=== PATIENT | male | born 1955 | race Caucasian/White ===

== ENCOUNTER → 2016-07-17 | Outpatient (REF) | payer OTHER ==
[2016-07-17 16:13] LABS: ALBUMIN 3.5 GM/DL (3.2-5.2); ALBUMIN/GLOBULIN RATIO 1.21 (1.00-1.93); ALKALINE PHOSPHATASE 87 U/L (45-117); ALT/SGPT 31 U/L (12-78); ANION GAP 7 MEQ/L (8-16); AST/SGOT 16 U/L (15-37); BILIRUBIN,TOTAL 0.5 MG/DL (0.2-1.0); BLOOD UREA NITROGEN 19 MG/DL (7-18); CALCIUM LEVEL 8.2 MG/DL (8.8-10.2); CARBON DIOXIDE LEVEL 27 MEQ/L (21-32); CHLORIDE LEVEL 108 MEQ/L (98-107); CHOLESTEROL LEVEL 116 MG/DL (<200); CREATININE FOR GFR 0.68 MG/DL (0.70-1.30); GLOMERULAR FILTRATION RATE > 60.0 (>49); GLUCOSE, FASTING 124 MG/DL (80-110); SODIUM LEVEL 142 MEQ/L (136-145); TOTAL PROTEIN 6.4 GM/DL (6.4-8.2); TRIGLYCERIDES LEVEL 58 MG/DL (<150)
== END ==
LOC: M LABDRAW1 15:38
PROVIDERS: ATTEND Emergency Medicine
DX: E78.2 Mixed hyperlipidemia (principal); R73.01 Impaired fasting glucose

== ENCOUNTER → 2017-09-10 | Outpatient (REF) | payer OTHER ==
[2017-09-10 20:02] LABS: ALBUMIN 3.6 GM/DL (3.2-5.2); ALBUMIN/GLOBULIN RATIO 1.16 (1.00-1.93); ALKALINE PHOSPHATASE 99 U/L (45-117); ALT/SGPT 37 U/L (12-78); ANION GAP 6 MEQ/L (8-16); AST/SGOT 20 U/L (7-37); BILIRUBIN,TOTAL 0.5 MG/DL (0.2-1.0); BLOOD UREA NITROGEN 13 MG/DL (7-18); CALCIUM LEVEL 8.7 MG/DL (8.8-10.2); CARBON DIOXIDE LEVEL 30 MEQ/L (21-32); CHLORIDE LEVEL 105 MEQ/L (98-107); CHOLESTEROL LEVEL 120 MG/DL (<200); CHOLESTEROL RISK RATIO 2.666 (<5); CREATININE FOR GFR 0.76 MG/DL (0.70-1.30); GLOMERULAR FILTRATION RATE > 60.0 (>49); GLUCOSE, FASTING 108 MG/DL (70-100); HDL CHOLESTEROL 45 MG/DL (>40); NON-HDL-C 75 MG/DL; POTASSIUM SERUM 3.7 MEQ/L (3.5-5.1); SODIUM LEVEL 141 MEQ/L (136-145); TOTAL PROTEIN 6.7 GM/DL (6.4-8.2); TRIGLYCERIDES LEVEL 90 MG/DL (<150)
[2017-09-10 20:09] LABS: ESTIMATED AVERAGE GLUCOSE 171 MG/DL (60-110); HEMOGLOBIN A1c 7.6 %
== END ==
LOC: M LAB REF 18:48
DX: R73.01 Impaired fasting glucose (principal); E78.5 Hyperlipidemia, unspecified; E78.2 Mixed hyperlipidemia; E11.9 Type 2 diabetes mellitus without complications

== ENCOUNTER → 2018-01-11 | Outpatient (REF) | payer OTHER ==
[2018-01-11 16:41] LABS: ALBUMIN 3.7 GM/DL (3.2-5.2); ALBUMIN/GLOBULIN RATIO 1.19 (1.00-1.93); ALKALINE PHOSPHATASE 87 U/L (45-117); ALT/SGPT 31 U/L (12-78); ANION GAP 8 MEQ/L (8-16); AST/SGOT 17 U/L (7-37); BILIRUBIN,TOTAL 0.5 MG/DL (0.2-1.0); BLOOD UREA NITROGEN 16 MG/DL (7-18); CARBON DIOXIDE LEVEL 27 MEQ/L (21-32); CHLORIDE LEVEL 105 MEQ/L (98-107); GLOMERULAR FILTRATION RATE > 60.0 (>49); GLUCOSE, FASTING 121 MG/DL (70-100); POTASSIUM SERUM 4.2 MEQ/L (3.5-5.1); SODIUM LEVEL 140 MEQ/L (136-145); TOTAL PROTEIN 6.8 GM/DL (6.4-8.2)
[2018-01-11 16:43] LABS: ESTIMATED AVERAGE GLUCOSE 131 MG/DL (60-110); HEMOGLOBIN A1c 6.2 %
== END ==
LOC: M LABDRAW1 15:58
DX: E11.9 Type 2 diabetes mellitus without complications (principal)

== ENCOUNTER → 2018-01-21 | Outpatient (REF) | payer OTHER | LOC: M LAB REF 17:12 | DX: E11.9 Type 2 diabetes mellitus without complications (principal) ==

== ENCOUNTER 2018-03-29 13:19 | Emergency (ER) | payer OTHER ==
[~2018-03-29] VITALS: Ht 175.3 cm; Wt 88.6 kg
[~2018-03-29 13:19] MED LIST: ASPI1TAB PO; ATOR1TAB21 PO; METF-839 PO; MULT1TAB10 PO
[2018-03-29] MEDS ORDERED: NORCO, ANEXSIA 5/325MG TABLET (HYDROcodone/ACETAMINOPHEN) PO ONE (14:30)
[2018-03-29] MEDS ORDERED: ADACEL/BOOSTRIX VACCINE (DIPHTH/PERTUSS/ACELL/TETANUS)0.5ML SYR (90715) IM ONE (14:30)
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
[2018-03-29] MEDS ORDERED: NORCOTAB PO (15:04)
[2018-03-29 15:15] VITALS: BP 168/93
== END 2018-03-29 15:17 | disposition home or self-care (01) ==
LOC: M ED 13:19
DX: Z04.1 Encounter for examination and observation following transport accident (principal); S62.317A Displaced fracture of base of fifth metacarpal bone, left hand, initial encounter for closed fracture; X58.XXXA Exposure to other specified factors, initial encounter; Y92.410 Unspecified street and highway as the place of occurrence of the external cause; Z79.84 Long term (current) use of oral hypoglycemic drugs; Z79.82 Long term (current) use of aspirin; Z79.899 Other long term (current) drug therapy

== ENCOUNTER → 2018-05-06 | Outpatient (REF) | payer OTHER ==
[~2018-05-06] MED LIST changes: +NORCOTAB PO
[2018-05-06 16:18] LABS: BLOOD UREA NITROGEN 24 MG/DL (7-18); CALCIUM LEVEL 8.6 MG/DL (8.8-10.2); CARBON DIOXIDE LEVEL 26 MEQ/L (21-32); CHLORIDE LEVEL 106 MEQ/L (98-107); CREATININE FOR GFR 0.64 MG/DL (0.70-1.30); GLOMERULAR FILTRATION RATE > 60.0 (>49); GLUCOSE, FASTING 133 MG/DL (70-100); POTASSIUM SERUM 3.9 MEQ/L (3.5-5.1); SODIUM LEVEL 143 MEQ/L (136-145)
[2018-05-06 16:31] LABS: HEMOGLOBIN A1c 6.7 %
== END ==
LOC: M LAB REF 15:19
PROVIDERS: ATTEND Physician Assistant
DX: E11.9 Type 2 diabetes mellitus without complications (principal)

== ENCOUNTER → 2018-05-08 | Outpatient (REF) | payer OTHER ==
[2018-05-08 19:16] LABS: CREATININE, URINE 20.1 MG/DL; MALB URINE SIEMENS 11.3 MG/L; MAU/CREAT RATIO 56.2 MCG/MG (0.0-30.0)
== END ==
LOC: M LAB REF 17:14
PROVIDERS: ATTEND Physician Assistant
DX: E11.69 Type 2 diabetes mellitus with other specified complication (principal)

== ENCOUNTER → 2018-09-12 | Outpatient (REF) | payer OTHER ==
[~2018-09-12] MED LIST changes: -ASPI1TAB PO; +ASPI81TA26 PO; +HYDR-3715 PO; -NORCOTAB PO
[2018-09-12 18:56] LABS: ALBUMIN 3.8 GM/DL (3.2-5.2); ALT/SGPT 26 U/L (12-78); BILIRUBIN,TOTAL 0.6 MG/DL (0.2-1.0); BLOOD UREA NITROGEN 14 MG/DL (7-18); CALCIUM LEVEL 8.6 MG/DL (8.8-10.2); CARBON DIOXIDE LEVEL 26 MEQ/L (21-32); CHLORIDE LEVEL 106 MEQ/L (98-107); CHOLESTEROL LEVEL 112 MG/DL (<200); CHOLESTEROL RISK RATIO 2.333 (<5); CREATININE FOR GFR 0.79 MG/DL (0.70-1.30); GLOMERULAR FILTRATION RATE > 60.0 (>49); GLUCOSE, FASTING 115 MG/DL (70-100); HDL CHOLESTEROL 48 MG/DL (>40); LDL CHOLESTEROL 46 MG/DL (<100); NON-HDL-C 64 MG/DL; SODIUM LEVEL 141 MEQ/L (136-145); TOTAL PROTEIN 6.9 GM/DL (6.4-8.2); TRIGLYCERIDES LEVEL 88 MG/DL (<150)
[2018-09-12 19:07] LABS: HEMOGLOBIN A1c 6.8 %
== END ==
LOC: M LABDRAW1 14:14
PROVIDERS: ATTEND Physician Assistant
DX: E78.2 Mixed hyperlipidemia (principal)

== ENCOUNTER 2018-10-30 08:26 | Day surgery (SDC) | payer MEDICAID, SELFPAY ==
[~2018-10-30] VITALS: Ht 177.8 cm; Wt 83.1 kg
[~2018-10-30 08:26] MED LIST changes: +MULTCAP PO; +NS 1,000 ML IV ONE
[2018-10-30] MEDS ORDERED: fentaNYL 100 MCG/2 ML INJECTION (J3010) As Ordered ONE (09:50)
[2018-10-30] MEDS ORDERED: PROPOFOL 500 MG/50 ML VIAL As Ordered ONE (09:50)
[2018-10-30] MEDS ORDERED: LIDOCAINE 2% INJ 100 MG/5 ML SDV (FOR ANES.) As Ordered ONE (09:50)
--- NOTE | 2018-10-30 10:29 | ROOR ---
Patient Name: Bjorn Persaud Procedure Date: 10/30/2018 9:45 AM Date of : 1955 Age: 62 Room: [facility] Gender: Male Note Status: Finalized Procedure: Upper GI endoscopy Indications: Dysphagia Providers: Rebel Ortega MD Referring MD: KAMILAH Edwards Requesting Provider: Medicines: Monitored Anesthesia Care Complications: No immediate complications. Procedure: Pre-Anesthesia Assessment: - Prior to the procedure, a History and Physical was performed, and patient medications and allergies were reviewed. The patient is competent. The risks and benefits of the procedure and the sedation options and risks were discussed with the patient. All questions were answered and informed consent was obtained. Patient identification and proposed procedure were verified by the physician, the nurse and the anesthesiologist in the endoscopy suite. Mental Status Examination: alert and oriented. Airway Examination: normal oropharyngeal airway and neck mobility. Respiratory Examination: clear to auscultation. CV Examination: normal. Prophylactic Antibiotics: The patient does not require prophylactic antibiotics. Prior Anticoagulants: The patient has taken aspirin, last dose was 1 day prior to procedure. ASA Grade Assessment: II - A patient with mild systemic disease. After reviewing the risks and benefits, the patient was deemed in satisfactory condition to undergo the procedure. The anesthesia plan was to use monitored anesthesia care (MAC). Immediately prior to administration of medications, the patient was re-assessed for adequacy to receive sedatives. The heart rate, respiratory rate, oxygen saturations, blood pressure, adequacy of pulmonary ventilation, and response to care were monitored throughout the procedure. The physical status of the patient was re-assessed after the procedure. The Endoscope was introduced through the mouth, and advanced to the second part of duodenum. The upper GI endoscopy was accomplished without difficulty. The patient tolerated the procedure well. Findings: There is no endoscopic evidence of bleeding, areas of erosion, esophagitis, inflammation, mucosal abnormalities, stenosis or stricture in the upper third of the esophagus and in the middle third of the esophagus. A small, fungating mass with no bleeding and no stigmata of recent bleeding was found in the lower third of the esophagus, 38 cm from the incisors. The mass was non-obstructing and not circumferential. This was biopsied with a cold forceps for histology. Estimated blood loss was minimal. Patchy mildly congested mucosa was found at the pylorus. This was biopsied with a cold forceps for histology. Estimated blood loss was minimal. Patchy mildly congested mucosa without active bleeding and with no stigmata of bleeding was found in the duodenal bulb. This was biopsied with a cold forceps for histology. Impression: - Likely malignant esophageal tumor was found in the lower third of the esophagus. Biopsied. - Congestive gastropathy. Biopsied. - Congested duodenal mucosa. Biopsied. - abnormal appearing mass located at a single area of the esophagus just above the ge junctiion. Not visible with retroflexion at the stomach. Recommendation: - Return to my office in 1 week. Rebel Ortega MD Rebel Ortega MD 10/30/2018 10:28:55 AM Electronically signed by Rebel Ortega MD Number of Addenda: 0 Note Initiated On: 10/30/2018 9:45 AM Estimated Blood Loss: Estimated blood loss was minimal.
--- NOTE | 2018-10-30 10:32 | ROOR ---
Patient Name: Bjorn Persaud Procedure Date: 10/30/2018 9:45 AM Date of : 1955 Age: 62 Room: [facility] Gender: Male Note Status: Finalized Procedure: Colonoscopy Indications: Screening for colorectal malignant neoplasm Providers: Rebel Ortega MD Referring MD: KAMILAH Edwards Requesting Provider: Medicines: Monitored Anesthesia Care Complications: No immediate complications. Procedure: Pre-Anesthesia Assessment: - Prior to the procedure, a History and Physical was performed, and patient medications and allergies were reviewed. The patient is competent. The risks and benefits of the procedure and the sedation options and risks were discussed with the patient. All questions were answered and informed consent was obtained. Patient identification and proposed procedure were verified by the physician, the nurse and the anesthesiologist in the endoscopy suite. Mental Status Examination: alert and oriented. Airway Examination: normal oropharyngeal airway and neck mobility. Respiratory Examination: clear to auscultation. CV Examination: normal. Prophylactic Antibiotics: The patient does not require prophylactic antibiotics. Prior Anticoagulants: The patient has taken aspirin, last dose was 1 day prior to procedure. ASA Grade Assessment: II - A patient with mild systemic disease. After reviewing the risks and benefits, the patient was deemed in satisfactory condition to undergo the procedure. The anesthesia plan was to use monitored anesthesia care (MAC). Immediately prior to administration of medications, the patient was re-assessed for adequacy to receive sedatives. The heart rate, respiratory rate, oxygen saturations, blood pressure, adequacy of pulmonary ventilation, and response to care were monitored throughout the procedure. The physical status of the patient was re-assessed after the procedure. The Colonoscope was introduced through the anus and advanced to the cecum, identified by appendiceal orifice and ileocecal valve. The colonoscopy was somewhat difficult due to multiple diverticula in the colon. The patient tolerated the procedure well. The quality of the bowel preparation was good. Findings: Hemorrhoids were found on perianal exam. Multiple medium-mouthed diverticula were found in the sigmoid colon, descending colon and transverse colon. There was evidence of an impacted diverticulum. There was no evidence of diverticular bleeding. A localized area of mildly inflamed mucosa was found in the descending colon. Biopsies were taken with a cold forceps for histology. The retroflexed view of the distal rectum and anal verge was normal and showed no anal or rectal abnormalities. Impression: - Hemorrhoids found on perianal exam. - Moderate diverticulosis in the sigmoid colon, in the descending colon and in the transverse colon. There was evidence of an impacted diverticulum. There was no evidence of diverticular bleeding. - Inflamed mucosa in the descending colon. Biopsied. - The distal rectum and anal verge are normal on retroflexion view. Recommendation: - Discharge patient to home (ambulatory). - Repeat colonoscopy in 10 years for screening purposes. Rebel Ortega MD Rebel Ortega MD 10/30/2018 10:32:23 AM Electronically signed by Rebel Ortega MD Number of Addenda: 0 Note Initiated On: 10/30/2018 9:45 AM Estimated Blood Loss: Estimated blood loss was minimal.
[2018-10-30 10:45] VITALS: BP 140/77
== END 2018-10-30 11:04 | disposition home or self-care (01) ==
LOC: M OPP 08:26
PROVIDERS: ATTEND Surgery
DX: Z12.11 Encounter for screening for malignant neoplasm of colon (principal); K64.9 Unspecified hemorrhoids; K52.9 Noninfective gastroenteritis and colitis, unspecified; K57.30 Diverticulosis of large intestine without perforation or abscess without bleeding; D49.0 Neoplasm of unspecified behavior of digestive system; K31.89 Other diseases of stomach and duodenum; R13.10 Dysphagia, unspecified; J44.9 Chronic obstructive pulmonary disease, unspecified; E11.9 Type 2 diabetes mellitus without complications; Z79.899 Other long term (current) drug therapy; Z79.82 Long term (current) use of aspirin; Z79.84 Long term (current) use of oral hypoglycemic drugs; Z87.891 Personal history of nicotine dependence
CPT/HCPCS: 43239; 45380; 88305; J3010

== ENCOUNTER → 2018-11-06 | Outpatient (CLI) | payer OTHER, MEDICAID ==
[~2018-11-06] MED LIST changes: +ISOVUE-370 76% 100ML VIAL (Q9967) As Ordered ONE; -NS 1,000 ML IV ONE
--- NOTE | 2018-11-06 13:26 | REP ---
Clinical: Malignant neoplasm of the esophagus. Technique: Axial contrast enhanced images from the thoracic inlet to the upper abdomen with coronal and sagittal re-formations using 100 ml Isovue 370 intravenous contrast material. Comparison: 03/20/2011. Findings: There is asymmetric mural thickening of the distal esophagus. Small juana esophageal lymph nodes in the mediastinum measuring up to 5 mm cannot be excluded and are nonspecific. Right hilar lymph nodes are identified measuring up to 13 mm and unchanged compared to 2012. Further evaluation of the mediastinum demonstrates atherosclerotic changes to the thoracic aorta and coronary arteries without aortic aneurysm/dissection or cardiomegaly. No pericardial effusion. Trachea and tracheobronchial tree appear patent and within normal limits. The bilateral lung josue demonstrate moderate COPD/emphysematous changes. No urinary parenchymal consolidation, effusion, obvious significant nodule or mass lesion appreciated. Musculoskeletal structures demonstrate degenerative changes without focal osseous abnormality. Upper abdomen demonstrates normal bilateral adrenal glands. A few lymph nodes in the gastrohepatic ligament measure up to 11 mm and are nonspecific. Impression: 1. Mild asymmetric mural thickening to the distal esophagus. Small paraesophageal lymph nodes up to 5 mm are nonspecific. 2. Mild/early moderate chronic COPD and emphysematous changes to the bilateral lung josue similar to 2012. No evidence for metastatic disease. No consolidation or effusion. Electronically Signed by Ji Rodríguez MD 11/06/2018 01:17 P
== END ==
LOC: M RAD 12:25
PROVIDERS: ATTEND Surgery
DX: C15.9 Malignant neoplasm of esophagus, unspecified (principal)
CPT/HCPCS: 71260; Q9967

== ENCOUNTER 2018-12-18 14:09 | Observation (INO) | payer MEDICAID, OTHER ==
[~2018-12-18] VITALS: Ht 177.8 cm; Wt 83.7 kg
[~2018-12-18 14:09] MED LIST changes: -ISOVUE-370 76% 100ML VIAL (Q9967) As Ordered ONE
[2018-12-18] MEDS ORDERED: NS 1,000 ML IV ONE ×2 (14:30→23:45)
--- NOTE | 2018-12-18 15:00 | REP ---
CT brain: 12/18/2018. Indication: Mental status change. Stroke. Comparison: None. Technique: Unenhanced axial CT images of the brain were obtained from skull base to vertex. Findings: There is no acute intracranial hemorrhage, acute cortical infarction, mass effect or hydrocephalous. Diffuse volume loss is present. There are a few patchy areas of hypoattenuation scattered throughout the white matter most consistent with mild sequelae of chronic microangiopathic ischemic disease. Impression: No acute cardiopulmonary process. Electronically Signed by Nickolas Morley DO 12/18/2018 02:51 P
[2018-12-18 15:08] LABS: BASO % 0.4 % (0.0-1.0); EOS # 0.1 10^3/uL (0.0-0.5); HEMATOCRIT 42.3 % (42.0-52.0); HEMOGLOBIN 14.8 g/dl (13.5-17.5); LYMPH # 1.3 10^3/uL (1.5-5.0); LYMPH % 25.4 % (24.0-44.0); MEAN CORPUSCULAR HEMOGLOBIN 31.7 pg (27.0-33.0); MEAN CORPUSCULAR VOLUME 90.6 fl (80.0-96.0); MONO # 0.4 10^3/uL (0.0-0.8); MONO % 7.7 % (0.0-5.0); NEUTROPHILS # 3.3 10^3/uL (1.5-8.5); NEUTROPHILS % 65.3 % (36.0-66.0); PLATELET COUNT, AUTOMATED 202 10^3/uL (150-450); RED BLOOD COUNT 4.67 10^6/uL (4.30-6.10)
--- NOTE | 2018-12-18 15:20 | ECGEPIP ---
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
--- NOTE | 2018-12-18 15:21 | REP ---
Single view chest: 12/18/2018. Indication: Altered mental status. Comparison: CT chest from last month. Findings: The lungs are clear. There is no pleural effusion or pneumothorax. Cardiac silhouette is within normal limits. Impression: No acute cardiopulmonary process. Electronically Signed by Nickolas Morley DO 12/18/2018 03:12 P
[2018-12-18 15:48] LABS: ALBUMIN 3.6 GM/DL (3.2-5.2); ALT/SGPT 25 U/L (12-78); BILIRUBIN,DIRECT 0.2 MG/DL (0.0-0.2); BILIRUBIN,TOTAL 0.6 MG/DL (0.2-1.0); BLOOD UREA NITROGEN 12 MG/DL (7-18); CALCIUM LEVEL 8.6 MG/DL (8.8-10.2); CARBON DIOXIDE LEVEL 27 MEQ/L (21-32); CHLORIDE LEVEL 105 MEQ/L (98-107); CK-MB VALUE MASS 1.1 NG/ML (<3.6); CPK CREATINE PHOSPHOKINASE 65 U/L (39-308); CREATININE FOR GFR 0.81 MG/DL (0.70-1.30); GLOMERULAR FILTRATION RATE > 60.0 (>49); GLUCOSE, FASTING 126 MG/DL (70-100); MB/CK RELATIVE INDEX 1.69 (< OR =4); POTASSIUM SERUM 3.7 MEQ/L (3.5-5.1); SODIUM LEVEL 140 MEQ/L (136-145); TOTAL PROTEIN 6.7 GM/DL (6.4-8.2); TROPONIN I < 0.02 NG/ML (< 0.10)
[2018-12-18 16:41] LABS: ABG BASE EXCESS -0.3 (-2.0-2.0); ABG HCO3 24.5 MEQ/L (22.0-26.0); ABG O2 SATURATION 95.3 % (95.0-99.0); ABG PARTIAL PRESSURE CO2 40.7 mmHg (35.0-45.0); ABG PARTIAL PRESSURE O2 78.5 mmHg (75.0-100.0); ABG STANDARD HCO3 24.2 MEQ/L (22.0-26.0); ABG TOTAL CO2 25.7 MEQ/L (23.0-31.0); ABG pH (ARTERIAL) 7.397 UNITS (7.350-7.450)
[2018-12-18 17:10] LABS: ETHYL ALCOHOL (ETHANOL) < 0.003 % (0.000-0.010)
[2018-12-18 17:31] LABS: AMPHETAMINES LEVEL URINE NEGATIVE (NEGATIVE); BARBITURATES URINE NEGATIVE (NEGATIVE); BENZODIAZEPINES URINE NEGATIVE (NEGATIVE); CANNABINOIDS URINE NEGATIVE (NEGATIVE); COCAINE METABOLITE URINE NEGATIVE (NEGATIVE); METHADONE URINE NEGATIVE (NEGATIVE); OPIATES URINE NEGATIVE (NEGATIVE); PHENCYCLIDINE URINE NEGATIVE (NEGATIVE)
[2018-12-18 18:24] LABS: ACETAMINOPHEN LEVEL < 2.0 UG/ML (10.0-30.0); SALICYLATE LEVEL < 1.7 MG/DL (5.0-30.0)
[2018-12-18] MEDS ORDERED: GLUCAGON FOR INJ 1 MG VIAL (J1610) SC PRN (18:30)
[2018-12-18] MEDS ORDERED: GLUCOSE 4 GM CHEW TABLET PO PRN (18:30)
[2018-12-18] MEDS ORDERED: DEXTROSE 50% 50 ML SYRINGE IV PRN (18:30)
[2018-12-18] MEDS ORDERED: ISOVUE-370 76% 100ML VIAL (Q9967) As Ordered ONE (18:39)
--- NOTE | 2018-12-18 18:46 | HPEPDOC ---
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 Since that time he has been undergoing evaluation at [facility] in [place]. He was supposed to have a PET scan this Sunday he has been seen by thoracic surgeon Dr. Thomas and based on the results of the PET scan there is a plan for possible surgery in the near future. The patient was also told he would likely need to see an oncologist undergo chemotherapy as well. As per the patient's has been very depressed regarding this new development and likely need for chemotherapy and is cancer she expressed some concern that he may have taken some of her medication although the patient denies this. The patient reportedly was more tired yesterday evening it was difficult to wake today sleeping and much later than usual and that when he did awake the patient reported his he did not think she would be capable of walking that he will stumble and fall prompting her to call 911. Since then the patient's been difficult to awaken but oriented to walk and and also speaking with more slurred speech than usual and more combative that he was the day before as per the .. Otherwise patient denies hair loss, headache, visual changes, chest pain, shortness of breath, cough, nausea, vomiting, diarrhea, abdominal pain, muscle aches, worsening arthritis tremendous today he does express to me that he has felt down and depressed and has thought of hurting himself and take his own life in recent days but denies having taken anything or made any attempt. PAST MEDICAL HISTORY: 1. Esophageal cancer diagnosed in October of this year. 2. COPD. 3. Diabetes mellitus 4. Diverticulosis. HOME MEDICATIONS: Please see below. ALLERGIES: Please see below PAST SURGICAL HISTORY: 1. Cervical fusion. 2. Bilateral foot surgeries. SOCIAL HISTORY: Lives with: , Employment: Unable to work since diagnosis of cancer. 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 ETOH: Denies, Illicit drug use: Denies, CODE STATUS: Focal FAMILY HISTORY:Reviewed and noncontributory REVIEW OF SYSTEMS: 10 systems reviewed and negative other than HPI PHYSICAL EXAMINATION: VITAL SIGNS: Temperature 96.8, pulse 80 respiratory rate 16, blood pressure 120/78, pulse oximetry 92% on room air. GENERAL: Competitive elderly man sleeping with O sign but arousable to verbal stimuli and oriented times she speaks with very slurred speech and at other times when anchored speaks very clearly. Does not appear to be in any acute distress HEENT: Moist mucous membranes no elevation in CVP CARDIOVASCULAR: S1 S2 regular no additional heart sounds appreciated. RESPIRATORY: Clear to auscultation bilaterally. ABDOMINAL: Bowel sounds present abdomen soft and nontender EXTREMITIES: No clubbing cyanosis or edema NEUROLOGICAL: Spontaneously moves all 4 extremities cranial 2 through 12 grossly intact no gross focal deficits appreciated no focal deficits other than intermittent slurred speech which is not consistent PSYCHOLOGICAL: Volatile angry depressed combative at times LABORATORY DATA: See below. MICROBIOLOGY: Please see below. IMAGING: Head CT:There is no acute intracranial hemorrhage, acute cortical infarction, mass effect or hydrocephalous. Diffuse volume loss is present. There are a few patchy areas of hypoattenuation scattered throughout the white matter most consistent with mild sequelae of chronic microangiopathic ischemic disease. Chest x-ray: No acute cardiopulmonary process. ASSESSMENT & PLAN: This is a 63-year-old man presenting with weakness confusion changes in mentation. PROBLEMS: 1. Weakness confusion changes in mentation: Etiology is not immediately clear patient did express some suicidal ideation to me during this visit and as such I'll place him on a one-to-one sitter and he'll need to be cleared by psychiatry before any disposition. The did have concern that he may have taken some of her medications as he denies taking any medications at home and not being on any prescription medication patient's also states he does not take any prescription medications. Given his relatively benign vital signs and tox screens illicitly possible he is taking the medication on other tox screen and he will improve with simple observation. However given his esophageal cancer and we'll check an MRI of the brain is certainly at risk for CVA also check a CT scan of his neck and chest discomfort any worsening given his changes in speech over the last 24 hours. I will have him work with physical therapy and occupational therapy speech therapy and admitted to observation status. Should he fail to improve could consider neurology consultation. 2. Esophageal cancer: We'll obtain records from [facility] check imaging as outlined above all acute him nothing by mouth until speech can evaluate him however I suspected benefit from a full liquid diet when able and hopefully more awake tomorrow 3. COPD: He is at his baseline respiratory status no acute change he is not taki ng any medications at [id number] history and this diagnosis 4. Diabetes mellitus: He'll be nothing by mouth sliding scale and will check an A1c DVT PROPHYLAXIS: Lovenox DISPOSITION: Progressive care unit for telemetry monitoring the setting of a possible unknown overdose observation status. Vital Signs Vital Signs Date Time Temp Pulse Resp B/P (MAP) Pulse Ox O2 Delivery O2 Flow Rate FiO2 12/18/18 18:15 99 151/77 (101) 92 12/18/18 17:46 96.8 12/18/18 17:15 16 12/18/18 14:25 Room Air Laboratory Data Labs 24H Laboratory Tests 2 12/18/18 14:53: Immature Granulocyte % (Auto) 0.2, Neutrophils (%) (Auto) 65.3, Lymphocytes (%) (Auto) 25.4, Monocytes (%) (Auto) 7.7H, Eosinophils (%) (Auto) 1.0, Basophils (%) (Auto) 0.4, Neutrophils # (Auto) 3.3, Lymphocytes # (Auto) 1.3L, Monocytes # (Auto) 0.4, Eosinophils # (Auto) 0.1, Basophils # (Auto) 0.0, Nucleated Red Blood Cells % (auto) 0.0, Anion Gap 8, Glomerular Filtration Rate > 60.0, Lactic Acid Level 1.2, Calcium Level 8.6L, Total Bilirubin 0.6, Direct Bilirubin 0.2, Aspartate Amino Transf (AST/SGOT) 9, Alanine Aminotransferase (ALT/SGPT) 25, Al kaline Phosphatase 99, Total Creatine Kinase 65, Creatine Kinase MB 1.1, Creatine Kinase MB Relative Index 1.69, Troponin I < 0.02, Total Protein 6.7, Albumin 3.6, Albumin/Globulin Ratio 1.16, Thyroid Stimulating Hormone (TSH) 1.630, Salicylates Level < 1.7L, Acetaminophen Level < 2.0L, Ethyl Alcohol Level < 0.003 12/18/18 15:01: Bedside Glucose (Misc Panel) 136H 12/18/18 15:51: Urine Color YELLOW, Urine Appearance CLEAR, Urine pH 6.0, Urine Specific [place] 1.005, Urine Protein NEGATIVE, Urine Glucose (UA) NEGATIVE, Urine Ketones TRACEH, Urine Blood NEGATIVE, Urine Nitrite NEGATIVE, Urine Bilirubin NEGATIVE, Urine Urobilinogen 0.2, Urine Leukocyte Esterase NEGATIVE, Urine WBC (Auto) 1, Urine RBC (Auto) 1, Urine Hyaline Casts (Auto) 0, Urine Bacteria (Auto) NEGATIVE, Urine Squamous Epithelial Cells 0, Urine Sperm (Auto) , Urine Opiates Screen NEGATIVE, Urine Methadone Screen NEGATIVE, Urine Barbiturates Screen NEGATIVE, Urine Phencyclidine Screen NEGATIVE, Urine Amphetamines Screen NEGATIVE, Urine Benzodiazepines Screen NEGATIVE, Urine Cocaine Metabolite Screen NEGATIVE, Urine Cannabinoids Screen NEGATIVE 12/18/18 16:30: Blood Gas Bicarbonate Standard 24.2, Arterial Blood pH 7.397, Arterial Blood Partial Pressure CO2 40.7, Arterial Blood Partial Pressure O2 78.5, Arterial Blood Total CO2 25.7, Arterial Blood HCO3 24.5, Arterial Blood Base Excess -0.3, Arterial Blood Oxygen Saturation 95.3 CBC/BMP Laboratory Tests 12/18/18 14:53 Microbiology Microbiology 12/18/18 Blood Culture, Received Pending 12/18/18 Blood Culture, Received Pending Home Medications Scheduled Aspirin (Aspirin EC) 81 Mg Tab, 81 MG PO DAILY Atorvastatin Calcium (Atorvastatin Calcium) 20 Mg Tab, 20 MG PO QHS Metformin HCl (Metformin HCl) 500 Mg Tab, 500 MG PO BID Multivitamin (Multivitamins) 1 Each Capsule, 1 CAP PO DAILY Allergies Coded Allergies: No Known Allergies (Unverified , 12/18/18) A-FIB/CHADSVASC A-FIB History Current/History of A-Fib/PAF?: No ARNULFO ORR MD Dec 18, 2018 18:45
[2018-12-18 19:13] LABS: C REACTIVE PROTEIN QUANTITATIV < 0.30 MG/DL (0.00-0.30)
[2018-12-18 19:31] LABS: ERYTHROCYTE SEDIMENTATION RATE 7 mm/hr (0-20)
--- NOTE | 2018-12-18 19:35 | REPVR ---
PROCEDURE INFORMATION: Exam: CT Chest With Contrast Exam date and time: 12/18/2018 6:42 PM Clinical history: 63 years old, male; Other: Dysphagia; Additional info: Esophageal CA, worsened speech and dysphagia TECHNIQUE: Imaging protocol: Computed tomography of the chest with intravenous contrast. Radiation optimization: All CT scans at this facility use at least one of these dose optimization techniques: automated exposure control; mA and/or kV adjustment per patient size (includes targeted exams where dose is matched to clinical indication); or iterative reconstruction. Contrast material: ISOVUE 370; Contrast volume: 100 ml; Contrast route: IV; COMPARISON: CT Chest with contrast 11/06/2018 1:06 PM FINDINGS: Lungs: Pulmonary vascular/interstitial pattern does not suggest active pulmonary edema. No suspicious lung mass or air space process. No central endobronchial lesion. Apical predominant centrilobular emphysema. Pleural space: No pleural effusion or pneumothorax. Heart: No cardiac enlargement or pericardial effusion. Mediastinum: Circumferential thickening of the esophagus distal to the gil extending to the GE junction level. No dilatation proximally to suggest esophageal obstruction. Pulmonary arteries: Central pulmonary arteries show no intraluminal defect suggestive of clot. Aorta: No thoracic aortic aneurysm or dissection. Great vessels off aortic arch: Atherosclerotic calcifications in the coronary vessels. Lymph nodes: No enlarged lymph nodes. Adrenals: Adrenal glands are normal in appearance. Bones/joints: Bony structures show no acute fracture or destructive process. IMPRESSION: 1. No acute thoracic abnormality or evidence of aspiration pneumonia. 2. Circumferentially thickened esophagus, from the subcarinal level to the GE junction without obstruction. 3. No evidence of metastatic disease to the lungs Electronically signed by: Julio Beck On 12/18/2018 19:34:53 PM
--- NOTE | 2018-12-18 19:40 | REPVR ---
PROCEDURE INFORMATION: Exam: CT Neck With Contrast Exam date and time: 12/18/2018 6:42 PM Clinical history: 63 years old, male; Dysphagia / difficulty swallowing; Additional info: Esophageal CA, worsened speech and dysphagia TECHNIQUE: Imaging protocol: Computed tomography images of the neck with intravenous contrast. Radiation optimization: All CT scans at this facility use at least one of these dose optimization techniques: automated exposure control; mA and/or kV adjustment per patient size (includes targeted exams where dose is matched to clinical indication); or iterative reconstruction. Contrast material: ISOVUE 370; Contrast volume: 100 ml; Contrast route: IV COMPARISON: No relevant prior studies available. FINDINGS: No focal subcutaneous soft tissue swelling. Parapharyngeal and posterior nasopharynx soft tissue planes are symmetric. No asymmetric enlargement or inflammation of the pharyngeal tonsils. Vascular structures of the neck enhance normally. No abnormally enlarged cervical chain or jugulodigastric lymph nodes. Muscles of mastication and strap muscles of the neck appear normal. Parotid and minor salivary glands are unremarkable. Floor of the mouth and tongue base soft tissues appear normal. Laryngeal structures appear normal. Thyroid gland shows no abnormality. Lung apices demonstrate emphysematous changes. Bony structures show no acute fracture or destructive process. Anterior discectomy and fusion hardware C5-C7 IMPRESSION: Unremarkable contrast enhanced CT of the neck soft tissues. No mass or inflammatory process. Anterior discectomy and fusion changes of the cervical spine from C5-C7 Electronically signed by: Julio Beck On 12/18/2018 19:39:54 PM
[2018-12-18 20:26] LABS: HEMOGLOBIN A1c 6.2 %
[2018-12-18 20:32] LABS: ACETAMINOPHEN LEVEL < 2.0 UG/ML (10.0-30.0); SALICYLATE LEVEL < 1.7 MG/DL (5.0-30.0)
[2018-12-18 21:25] VITALS: BP 140/81
--- NOTE | 2018-12-18 21:33 | REPVR ---
PROCEDURE INFORMATION: Exam: MR Head Without Contrast Exam date and time: 12/18/2018 8:58 PM Clinical history: 63 years old, male; Altered mental status/memory loss and coma or unconsciousness and speech disturbance and weakness, extremity; Bilateral; Confusion or disorientation; Patient HX: Moments of lucid consciousness, and moments of AMS that come and go severe slurred speech, nki CT on pacs; Additional info: Changes in mentation TECHNIQUE: Imaging protocol: MR of the head without contrast. COMPARISON: CT Head without contrast 12/18/2018 2:35 PM FINDINGS: No abnormal restriction of diffusion to indicate acute CVA. Midline structures and cerebellar tonsillar position appear normal. Ventricles, cisterns and sulci are symmetrically prominent. No intracranial mass, midline shift or abnormal extra-axial fluid. No acute intracranial hemorrhage. Cavum septi pellucidi et vergae incidental anatomic variant is present. No abnormal white matter signal on FLAIR and T2 sequences. Optic chiasm and pituitary infundibulum appear normal. Normal vascular flow voids in major intracranial arteries and dural venous sinuses. Paranasal sinuses are clear. Mastoid air cells are normally aerated. Optic globes and orbits are unremarkable. IMPRESSION: No acute intracranial abnormality. Mild symmetric atrophy Electronically signed by: Julio Beck On 12/18/2018 21:33:21 PM
[2018-12-18] MEDS ORDERED: SLF 3 ML SYR IV PRN (21:45)
[2018-12-19] VITALS (8 sets, daily range): BP systolic 130–178; BP diastolic 71–90
[2018-12-19] MEDS: SLF 3 ML SYR IV SCH ×4 (00:12→22:07)
[2018-12-19 05:49] LABS: HEMATOCRIT 40.4 % (42.0-52.0); HEMOGLOBIN 13.6 g/dl (13.5-17.5); MEAN CORPUSCULAR HEMOGLOBIN 31.1 pg (27.0-33.0); MEAN CORPUSCULAR HGB CONC 33.7 g/dl (32.0-36.5); MEAN CORPUSCULAR VOLUME 92.4 fl (80.0-96.0); PLATELET COUNT, AUTOMATED 193 10^3/uL (150-450); RED BLOOD COUNT 4.37 10^6/uL (4.30-6.10); WHITE BLOOD COUNT 6.1 10^3/uL (4.0-10.0)
[2018-12-19] MEDS: HumaLOG INSULIN (NovoLOG) PER UNIT SC SCH ×2 (06:00)
[2018-12-19 06:22] LABS: BLOOD UREA NITROGEN 11 MG/DL (7-18); CALCIUM LEVEL 8.4 MG/DL (8.8-10.2); CARBON DIOXIDE LEVEL 29 MEQ/L (21-32); CHLORIDE LEVEL 110 MEQ/L (98-107); CREATININE FOR GFR 0.78 MG/DL (0.70-1.30); GLOMERULAR FILTRATION RATE > 60.0 (>49); GLUCOSE, FASTING 105 MG/DL (70-100); POTASSIUM SERUM 3.6 MEQ/L (3.5-5.1); SODIUM LEVEL 143 MEQ/L (136-145)
[2018-12-19] MEDS ORDERED: NICOTINE POLACRILEX 2 MG GUM PO PRN ×2 (08:45)
[2018-12-19] MEDS: ENOXAPARIN 40 MG/0.4 ML SYRINGE (J1650) SC SCH (08:56)
--- NOTE | 2018-12-19 11:11 | IPNPDOC ---
Text Note Date of Service The patient was seen on 12/19/18. NOTE Subjective: Bjorn Persaud is a 63 year old male with significant past medical history including COPD, diabetes mellitus, diverticulosis, esophageal cancer. He was admitted to the ER yesterday due to weakness and confusion. She was accompanied by his . Patient was confused, weak, had slurring speech and was aggressive in the emergency room. Upon rounding on him today, he had no idea what happened to him yesterday. His was around. She stated that he had slept until 1 PM the day before, which was unusual for him. She went to wake him up for her appointment at the clinic at 3 PM. While trying to wake him up, she realized he was incoherent, weak and had slurred speech. He couldn't get out of bed and was visibly confused. His called 911 and got him admitted to the ER. She states that he had been visibly down ever since he got diagnosed with esophageal cancer in October 2018. He has been anxious and fearful about the future. At bedside today, patient is feeling significantly better. He is oriented to place, time and person and states that he is well. His only complaint is pain when swallowing, which has progressively gotten worse and has prevented him from eating. His also brought up the fact that he had taken some of her medication, specifically 6 Klonopin tablets. Patient didn't deny it. He stated he is concerned about living with esophageal cancer and had wanted to end his life. He was also fearful about chemotherapy regimen and wasn't sure if such treatment would better his chances of living. It was clear that he cares about his , who was very emotional at times during the encounter, but he stated that all he needs is clarity and a plan that would allow him to have his peace of mind. He insisted he wouldn't engage in another attempt to harm or kill himself because he had to live for his . Patient denies chest pain, shortness of breath, headaches, numbness, weakness, tingling sensation, muscle pain, nausea and abdominal pain. Speech has improved drastically. Review of systems: Constitutional- denies fever, chills and night sweats HEENT- denies headaches, hearing loss, ringing sensation but admits to odynophagia and dysphagia Cardiovascular- denies chest pain on palpation Respiratory- denies shortness of breath or wheezing Gastrointestinal- denies nausea, vomiting, diarrhea, constipation or abdominal pain Musculoskeletal- denies muscle weakness bilaterally in upper and lower extremities, Neurological- denies confusion, numbness and weakness Endocrine- denies polyuria, polydipsia, polyphagia Genitourinary- denies hematuria or dysuria Psychology- patient admits to anxiety and depression Physical exam: Vitals:Temperature 97.6, Pulse 104, Respiratory Rate 18, Blood Pressure 164/85, Pulse Oximetry 93 General- alert, oriented to person, place and time HEENT- Normacephalic, atraumatic, External ear canals patent, oral mucosa clear Neck- supple without lymphadenopathy Respiratory: thorax symmetric with good expansion, lungs clear with no rales or rhonchi, no crackles Cardiovascular- normal s1 and s2, without s3 and s3, no murmur, rubs or clicks Abdominal- no present bowel sounds, nondistended, no tenderness on palpation, soft, no masses noted Extremities- full range of motion (5/5), radial, femoral and pedal pulses are palatable Skin- no ulcers, rashes evident Psychological- anxious but in good spirits Assessment and Plan: #Confusion and changes to mentation: History indicates likely reason for acute change was patient overdose on Klonopin. Patient had symptoms including, confusion, loss of consciousness, impaired coordination, drowsiness, which is in line with someone who has overdosed on klonopin. Toxicology screen- negative Relatively benign laboratory results Head CT and chest x-ray- negative and show no cardiopulmonary process Brain MRI- negative and showed no intracranial abnormality Will keep monitoring patient-blood pressure and pulse slightly elevated this morning Observational status #Psychiatry consult Suicidal ideation and patient uneasiness with treatment regimen of esophageal cancer Will discharge pt pending recommendations from psych. PET scan scheduled for tomorrow. Placed on a one on one sitter to prevent harming himself #Esophageal cancer: Patient recommend pureed solids and thin liquids per swallowing evaluation. Will follow up with dysphasia treatment for education regarding diet modifications. Patient may participate in radiation therapy per attending physician Neck CT- unremarkable and shows no masses chest CT- no thoracic abnormality but some thickening of the esophagus without obstruction #COPD 80 pack year history of smoking, no acute change but at baseline respiratory status Currently on no medications #Diabetes Sliding scale, pureed diet Patient A1c level 6.2 VS,Fishbone, I+O VS, Fishbone, I+O Laboratory Tests 12/18/18 14:53 12/19/18 05:38 Vital Signs Date Time Temp Pulse Resp B/P (MAP) Pulse Ox O2 Delivery O2 Flow Rate FiO2 12/19/18 08:00 97.6 104 18 164/85 (111) 93 12/18/18 14:25 Room Air I&O- Last 24 Hours up to 6 AM 12/19/18 06:00 Intake Total 1450 ml Output Total 550 ml Balance 900 ml GME ATTESTATION GME ATTESTATION I saw and evaluated the patient. I agree with the findings and plan of care as documented in the above note This a.m. patient significantly improved he is awake alert oriented times 3. function when ambulating. He tells me that he willingly took his 's medication 5 Klonopin he believes it a suicide attempt as he is depressed and does not want to go through with this therapy for his esophageal cancer. Patient appears fairly reasonable at this time I did explain him should he should undergo a complete evaluation including a PET scan and speak with the oncologist to determine his prognosis and make an informed decision at that point. He may in fact be hospice appropriate and able to complete this at home and declined chemotherapy and radiation surgery if he so wishes. However if his cancer is treatable he may elect to pursue treatment he does a good understanding of our conversation and stated he never thought of it that way before and is more open to making an informed decision moving forward. However given he did have a shanna suicide attempt and with ideation admittedly I will have him reevaluated by psychiatry MACI PLATA Dec 19, 2018 11:11 ARNULFO ORR MD Dec 19, 2018 13:48 YVAN STOCKTON DO Dec 19, 2018 17:09
[2018-12-19] MEDS ORDERED: SLF 3 ML SYR IV PRN (12:45)
[2018-12-19] MEDS ORDERED: SLF 3 ML SYR IV SCH (14:00)
--- NOTE | 2018-12-19 21:50 | MHCR ---
DATE OF CONSULTATION: 12/19/2018 HISTORY OF PRESENT ILLNESS: I was asked to see this 63-year-old man who apparently took an overdose of Klonopin. He admits that it was a suicidal attempt but says that he has now changed his mind and is not suicidal. Apparently, the Klonopin belonged to his . The patient had been dealing with significant depression lately. He was diagnosed with having esophageal cancer about 1 month ago and he is still undergoing workup and his doctors are still deciding what treatment they will be recommending for him. He tells me that he misunderstood something that one of his providers had said to him and as a result that was making him feel even more depressed and hopeless and helpless. He admits that he did have suicidal thoughts. He says, "I made a mistake, it was a stupid move." He says that in the past he has never had any problems with depression or anxiety. I did not elicit any hypomanic or manic like symptoms in this patient. No posttraumatic stress disorder (PTSD) or obsessive compulsive disorder (OCD) in this patient. PAST PSYCHIATRIC HISTORY: He has never been in a psychiatric unit. He has never done outpatient psychiatric treatment and never been on psychotropic medication. FAMILY HISTORY: The patient denies any psychiatric illness in the family or suicides. MEDICAL HISTORY: He has recently diagnosed esophageal cancer, chronic obstructive pulmonary disease (COPD), diabetes mellitus, diverticulosis. ABUSE HISTORY: There is no history of any physical or sexual abuse. SUBSTANCE ABUSE HISTORY: He denies any problems with alcohol or drugs. MENTAL STATUS EXAMINATION: He is alert and oriented times three. He is pleasant, cooperative, verbally spontaneous. Eye contact is good. There is no formal thought disorder noted. He says his mood is "better." Affect is full range and appropriate. He is not psychotic, suicidal or homicidal. He is denying being suicidal today but admits that he had suicidal thoughts when he took the overdose yesterday and he is not homicidal. Concentration is fair. Memory intact. Insight and judgment poor. DIAGNOSES: 1. Adjustment disorder with depressed mood. 2. Rule out major depressive disorder. TREATMENT PLAN: At this point, the patient admits that he had suicidal intent when he took the overdose but he now changed his mind. He feels that it was a stupid thing; however, he has been pretty depressed due to pretty significant medical condition and I suspect that he might be minimizing everything at this point and that he might be more depressed than he is admitting to. Therefore, I feel that is still a suicidal risk. Once the patient is medically cleared, please transfer the patient to the psychiatric unit for further evaluation and treatment. Of note, before I went to see the patient, the patient's met me in the hallway and she advised me that he would try to deceive me and that she was really concerned about his safety. I advised her that I would definitely consider the possibility of admission to a psychiatric unit.
[2018-12-20] VITALS: BP 150/84
[2018-12-20 04:00] VITALS: BP 134/68
[2018-12-20] MEDS: SLF 3 ML SYR IV SCH (05:51)
[2018-12-20 06:09] LABS: HEMATOCRIT 41.7 % (42.0-52.0); HEMOGLOBIN 14.1 g/dl (13.5-17.5); MEAN CORPUSCULAR HGB CONC 33.8 g/dl (32.0-36.5); MEAN CORPUSCULAR VOLUME 91.6 fl (80.0-96.0); PLATELET COUNT, AUTOMATED 218 10^3/uL (150-450); RED BLOOD COUNT 4.55 10^6/uL (4.30-6.10); WHITE BLOOD COUNT 5.7 10^3/uL (4.0-10.0)
[2018-12-20 06:31] LABS: BLOOD UREA NITROGEN 9 MG/DL (7-18); CALCIUM LEVEL 8.9 MG/DL (8.8-10.2); CARBON DIOXIDE LEVEL 29 MEQ/L (21-32); CHLORIDE LEVEL 106 MEQ/L (98-107); GLOMERULAR FILTRATION RATE > 60.0 (>49); GLUCOSE, FASTING 114 MG/DL (70-100); POTASSIUM SERUM 3.4 MEQ/L (3.5-5.1); SODIUM LEVEL 140 MEQ/L (136-145)
[2018-12-20] MEDS ORDERED: POTASSIUM CHLORIDE 10 MEQ SR TABLET PO ONE (07:30)
[2018-12-20 08:00] VITALS: BP 140/78
[2018-12-20] MEDS: ENOXAPARIN 40 MG/0.4 ML SYRINGE (J1650) SC SCH (09:00)
--- NOTE | 2018-12-20 09:32 | DS.PDOC ---
Discharge Summary General Date of Admission Dec 18, 2018 at 14:10 Date of Discharge 12/20/18 Attending Physician: ARNULFO ORR MD Specialist/Consultants Involve: Kathryn Banda Discharge Summary PROCEDURES PERFORMED DURING STAY: None ADMITTING DIAGNOSES: Weakness Altered mental status Confusion Esophageal cancer COPD Diabetes mellitus DISCHARGE DIAGNOSES: Altered mental status, secondary to intentional Klonopin overdose Adenocarcinoma of the esophagus COPD Diabetes COMPLICATIONS/CHIEF COMPLAINT: Altered Mental Status. HISTORY OF PRESENT ILLNESS: Patient is a 63-year-old male, past history significant for adenocarcinoma of the esophagus, currently being followed by Dr. Thomas at [facility] in [place], who presented to the emergency department the evening of 12/20/18 with altered mental status. Patient's reports that he had recently been told that he would likely require chemotherapy as part of his treatment plan. Patient was scheduled to have a PET scan done on 12/20/18 and, based on the results, will likely undergo surgery in the near future. Patient's reports that the patient, haven't learned of this news, has been very depressed the last few days. She did express some concern the patient may have taken some of her medication. Patient was reportedly more tired evening prior to presentation and it was extremely difficult to wake him up from sleeping. Patient was on capable of walking, which prompted patient's to call for EMS. As a department patient was found to be oriented but to have slurred speech. Patient denied any hair loss, headaches, vision changes, chest pain, shows of breath cough, nausea, vomiting, diarrhea, abdominal pain, muscle aches, worsening arthritis. Patient did express that he is felt down and depressed and has had thoughts of hurting himself and taking his own life in the recent days but that he had not made any attempt. HOSPITAL COURSE: Patient was brought to the floor, continued on IV fluids. Imaging performed of the patient's chest brain and neck did not demonstrate any acute neurologic process. The following morning, patient did admitting to taking 5 or 6 of his 's Klonopin in an attempt to harm himself and ultimately end his life. When talking to the medical team he did report that he was glad his attempt was unsuccessful as he could not imagine leaving his alone. Medically, patient did not demonstrate any lingering effects of Klonopin overdose as he was up and walking without difficulty. No difficulty with urination or stooling. A mental health consult was placed and patient was seen by psychiatry. Per their evaluation, they believe patient to remain a suicidal risk. Patient was medically cleared the morning of 12/20/18 for transfer to the inpatient mental health unit. This transition was discussed with the patient and his were both in agreement. Importance of following up upon discharge regarding his PET scan was emphasized. Prior to transfer to the [facility], patient and his had a verbal altercation in his hospital room. Per nursing staff, patient's became angry that she could not accompany the patient while in the inpatient mental health unit. Patient attempted to leave AMA but was ultimately agreeable to admission following discussion with medical staff. DISCHARGE MEDICATIONS: Please see below. ALLERGIES: Please see below. PHYSICAL EXAMINATION ON DISCHARGE: VITAL SIGNS: Please see below. GENERAL: Patient was interviewed and examined in his hospital room this morning. Patient was found to be seated upright in his hospital chair eating breakfast without difficulty. Patient's was at bedside. He did not appear to be in any acute distress. He is quite conversant and able to answer questions appropriately. HEENT: Normocephalic, atraumatic. Sclerae are nonicteric. EOMI. CARDIOVASCULAR EXAMINATION: Regular rate and rhythm, no murmurs auscultated normal S1 and S2 RESPIRATORY EXAMINATION: Clear to auscultation bilaterally in both anterior and posterior lung josue ABDOMINAL EXAMINATION: Soft, nontender, nondistended, no organomegaly appreciated EXTREMITIES: No lower extremity edema or swelling noted. No calf tenderness bilaterally NEUROLOGICAL EXAMINATION: Alert and oriented 3 PSYCHIATRIC EXAMINATION: Patient continues to deny any active SI. Mood and affect are congruent LABORATORY DATA: Please see below. IMAGING: Head CT (12/18/18): No acute cardio pulmonary process Chest x-ray (12/18/18): No acute cardiopulmonary process Neck CT (12/18/18): Unremarkable contrast enhanced CT of the neck soft tissues. No mass or inflammatory process. Anterior discectomy and fusion changes of the cervical spine from C5-C7 noted. Chest CT (12/18/18): No acute thoracic abnormality or evidence of aspiration pneumonia. Circumferentially thickened esophagus, from the subcarinal level to the GE junction without obstruction. No evidence of metastatic disease to the lungs. Brain MRI (12/18/18): No acute cranial abnormality. Mild symmetric atrophy. PROGNOSIS: Guarded ACTIVITY: As tolerated DIET: Soft diet, advance as tolerated DISCHARGE PLAN: Discharge patient to [facility] for further psychiatric evaluation and management. Once discharged home, patient should continue to follow with PCP and oncology for his esophageal Adenoma. Patient was scheduled for a PET scan on 12/20/18. Given discharge to [facility], patient unable to attend appointment. Please contact Dr. Horne's office to re- schedule this very important imaging study upon D/C. Please continue on home medications. Should you experience thoughts of harming yourself as well as please return to the emergency department for further evaluation and management. Thank you for this visit is being a care. DISCHARGE CONDITION: Medically Stable Vital Signs/I&Os Vital Signs Date Time Temp Pulse Resp B/P (MAP) Pulse Ox O2 Delivery O2 Flow Rate FiO2 12/20/18 04:00 98.5 87 18 134/68 (90) 96 Room Air I&O- Last 24 Hours up to 6 AM 12/20/18 06:00 Intake Total 1947 ml Output Total 550 ml Balance 1397 ml Laboratory Data Labs 24H Laboratory Tests 2 12/19/18 20:26: Bedside Glucose (Misc Panel) 121H 12/20/18 05:50: Nucleated Red Blood Cells % (auto) 0.0, Anion Gap 5L, Glomerular Filtration Rate > 60.0, Calcium Level 8.9 CBC/BMP Laboratory Tests 12/20/18 05:50 FSBS Laboratory Tests Test 12/19/18 20:26 Range/Units Bedside Glucose (Misc Panel) 121 80-115 MG/DL Microbiology Microbiology 12/18/18 Blood Culture - Preliminary, Resulted No growth after 24 hours . All specim... 12/18/18 Blood Culture - Preliminary, Resulted No growth after 24 hours . All specim... Discharge Medications Scheduled Aspirin (Aspirin EC) 81 Mg Tab, 81 MG PO DAILY, (Reported) Atorvastatin Calcium (Atorvastatin Calcium) 20 Mg Tab, 20 MG PO QHS, (Reported) Metformin HCl (Metformin HCl) 500 Mg Tab, 500 MG PO BID, (Reported) Multivitamin (Multivitamins) 1 Each Capsule, 1 CAP PO DAILY, (Reported) Allergies Coded Allergies: No Known Allergies (Unverified , 12/18/18) GME ATTESTATION GME ATTESTATION I saw and evaluated the patient. I agree with the findings and plan of care as documented in the documenters note. I spent 45 minutes coordinating this patient's discharge. YVAN STOCKTON DO Dec 20, 2018 09:32 ARNULFO ORR MD Dec 22, 2018 14:49
== END 2018-12-20 11:41 ==
LOC: EDBD 14:09 → M ED 14:09 → M ED INP 14:10 → M PCU 21:21
PROVIDERS: ADMIT Internal Medicine; ATTEND Internal Medicine
DX: T14.91XA Suicide attempt, initial encounter (principal); T42.4X2A Poisoning by benzodiazepines, intentional self-harm, initial encounter; Y92.89 Other specified places as the place of occurrence of the external cause; C15.9 Malignant neoplasm of esophagus, unspecified; J44.9 Chronic obstructive pulmonary disease, unspecified; E11.9 Type 2 diabetes mellitus without complications; Z79.84 Long term (current) use of oral hypoglycemic drugs; Z79.899 Other long term (current) drug therapy; K57.90 Diverticulosis of intestine, part unspecified, without perforation or abscess without bleeding; Z87.891 Personal history of nicotine dependence
CPT/HCPCS: 36415; 36600; 70450; 70491; 70551; 71045; 71260; 80048; 80076; 80307; 81001; 82550; 82553; 82803; 83036; 83605; 84443; 85025; 85027; 85652; 86140; 87040; 92507; 92610; 93005; 93041; 96360; 96361; 97161; 99285; G0480; Q9967

== ENCOUNTER 2018-12-20 11:44 | Inpatient (IN) | payer MEDICAID, OTHER ==
[2018-12-20 14:14] VITALS: BP 158/78
[2018-12-20] MEDS ORDERED: ACETAMINOPHEN TAB 650MG DOSE (2X325MG) PO PRN (14:15)
[2018-12-20] MEDS ORDERED: MAALOX 30 ML SUSP *UDC PO PRN (14:15)
[2018-12-20] MEDS ORDERED: traZODone 50 MG TAB PO PRN (14:15)
[2018-12-20] MEDS ORDERED: MOM 30ML SUSPENSION UDC PO PRN (14:15)
[2018-12-20 16:37] VITALS: BP 160/80
[2018-12-20] MEDS: NICOTINE POLACRILEX 2 MG GUM PO PRN (20:19)
[2018-12-21 06:45] VITALS: BP 127/79
[2018-12-21] MEDS: NICOTINE POLACRILEX 2 MG GUM PO PRN ×5 (06:49→21:14)
--- NOTE | 2018-12-21 11:41 | CR.PDOC ---
General Date of Consultation: Dec 21, 2018 Consultation REASON FOR CONSULTATION: Psychiatric admission history and physical medical HISTORY OF PRESENT ILLNESS: This is a 63-year-old man who was discharged from the medical floor yesterday. He has been admitted for overdose suspected Klono pin 5 tablets in a suicide attempt. He had been recently diagnosed with esophageal cancer and had been depressed not wanting to pursue care and he took some of his 's medications. He was medically cleared and discharged inpatient mental health today he tells me he is doing much better he has had a complete turnaround states he's going to be is cancer he wants to live he will not attempted any further suicide actions. PAST MEDICAL HISTORY: 1. Esophageal cancer diagnosed in October of this year. 2. COPD. 3. Diabetes mellitus 4. Diverticulosis. 5. Dyslipidemia HOME MEDICATIONS: Please see below. ALLERGIES: Please see below PAST SURGICAL HISTORY: 1. Cervical fusion. 2. Bilateral foot surgeries. SOCIAL HISTORY: Lives with: , Employment: Unable to work since diagnosis of cancer. 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 ETOH: Denies, Illicit drug use: Denies, CODE STATUS: Focal FAMILY HISTORY:Reviewed and noncontributory REVIEW OF SYSTEMS: 10 systems reviewed and negative other than HPI PHYSICAL EXAMINATION: VITAL SIGNS: Temperature 97.6, pulse 85 respiratory rate 14, blood pressure 127/79, pulse oximetry 95% on room air. GENERAL: Pleasant elderly man up ambulating around the unit awake alert oriented 3 no acute distress HEENT: Moist mucous membranes no elevation in CVP CARDIOVASCULAR: S1 S2 regular no additional heart sounds appreciated. RESPIRATORY: Clear to auscultation bilaterally. ABDOMINAL: Bowel sounds present abdomen soft and nontender EXTREMITIES: No clubbing cyanosis or edema NEUROLOGICAL: Spontaneously moves all 4 extremities cranial 2 through 12 grossly intact no gross focal deficits appreciated PSYCHOLOGICAL: Pleasant appropriate LABORATORY DATA: See below. MICROBIOLOGY: Please see below. IMAGING: None ASSESSMENT & PLAN: This is a 63-year-old man presenting with suicidal ideation and attempt PROBLEMS: 1. Suicidal ideation and attempt: We'll defer to psychiatry 2. Esophageal cancer: His overall depression and wishes to have his life related to his esophageal cancer diagnosis. I did urge him to follow-up with his oncologist undergo a PET scan and obtain all the information regarding his prognosis prior to making any decisions. It may in fact be that he is appropriate for hospice versus may be this is quite treatable at this point in time it is not immediately clear and with this understanding he seems more receptive to gaining information needed to make informed decisions regarding his further care. I recommend he follow up with his thoracic surgeon and PET scan testing in [place] as previously scheduled 3. COPD: He is at his baseline respiratory status no acute change he is not taking any medications at [id number] history and this diagnosis 4. Diabetes mellitus: He has some impaired glucose I will restart his home me tformin hemoglobin A1c 6.2. As he loses weight related to his cancer his requirement for this may decrease in the coming months 5. Dyslipidemia: Continue with statin and aspirin DVT PROPHYLAXIS: Ambulating Thank you for involving me in this interesting patient's care please not hesitate to Vocera secure text or call with any questions Vital Signs/I&O Vital Signs Date Time Temp Pulse Resp B/P (MAP) Pulse Ox O2 Delivery O2 Flow Rate FiO2 12/21/18 06:45 97.6 85 14 127/79 (95) Room Air 12/20/18 14:14 96 Allergies Coded Allergies: No Known Allergies (Unverified , 12/18/18) Home Medications Scheduled Aspirin (Aspirin EC) 81 Mg Tab, 81 MG PO DAILY, (Reported) Atorvastatin Calcium (Atorvastatin Calcium) 20 Mg Tab, 20 MG PO QHS, (Reported) Metformin HCl (Metformin HCl) 500 Mg Tab, 500 MG PO BID, (Reported) Multivitamin (Multivitamins) 1 Each Capsule, 1 CAP PO DAILY, (Reported) ARNULFO ORR MD Dec 21, 2018 11:41
[2018-12-21] MEDS: MULTIVITAMINS/MINERALS THERAP 1 TAB PO SCH (11:45)
[2018-12-21] MEDS: ASPIRIN 81 MG ENTERIC TAB PO SCH (11:45)
--- NOTE | 2018-12-21 15:16 | MHHPE ---
DATE OF ADMISSION: 12/20/2018 CHIEF COMPLAINT: He took an overdose. SUBJECTIVE: He is 63 years old. He is . He and his live together. He was brought to the hospital after he had taken an overdose of Klonopin, he says that he took five Klonopin pills, unknown strength of each tablet, it belongs to his . He took them as he wanted to . He says that this was after he had recently been diagnosed with esophageal cancer. He also has chronic obstructive pulmonary disease, diabetes mellitus, and diverticulosis. Denies any mental health difficulties in the past. Says he has generally done well and when diagnosed with esophageal cancer just about a month ago, says began thinking of and did not want to of the illness itself and began having suicidal thoughts. He became more entrenched the last few days. Says the status of the cancer is not ascertained yet and that he has not had many workups after that. He says that he took several of his 's Klonopin and then apparently went to sleep. He says that his tried waking him up. He does not remember that. He says that he does not remember anything else until waking up in the aldana in the hospital. He says that he was told that he was quite confused, agitated, which is what was observed when he was brought in and that he does not remember any of it. He says that he is glad that he survived. He says that he has spoken with his brother as well, and aims to "pineda" the illness and "beat it." His brother has given him encouragement. He says that he had felt a bit down, not pervasively so, since the diagnosis. He does not think that his sleep or other habits changed, maintained a good appetite. He was seen by Dr. Aly on consult a couple of days ago, please refer to that note for details related to the circumstances of the admission. He refers to his attempt on the overdose as a "stupid move." REVIEW OF PSYCHIATRIC SYSTEMS: No history consistent with previous depressive episodes nor hypomania nor arlene. No history consistent with posttraumatic stress disorder (PTSD) or psychosis. No history of obsessions or compulsions. PAST PSYCHIATRIC HISTORY: None formally. No history of inpatient hospitalizations nor suicide attempts. MEDICAL HISTORY: As indicated above. He has just recently been diagnosed with esophageal adenocarcinoma. He has a history of chronic obstructive pulmonary disease (COPD), diabetes mellitus, diverticulosis. SUBSTANCE ABUSE HISTORY: None significantly. FAMILY PSYCHIATRIC HISTORY: Denies any. MENTAL STATUS EXAMINATION: He is neat. He is cooperative. There is good eye contact. He is coherent. Speech is normal in amount and rate. Affect is reactive, broad, full range. Denies any thoughts of harming himself at present. No homicidal ideas or intents. No evidence of psychosis. Cognition is grossly intact. Judgment is questionable. Insight is questionable, possibly improved. VITAL SIGNS: Blood pressure 127/79, pulse 85, temperature 97.6. INVESTIGATIONS: Urine toxicology is negative. Metabolic profile shows a potassium at 3.4, otherwise within normal limits. Complete blood count essentially within normal limits. ASSESSMENT: 1. Adjustment disorder with disturbance of emotions and conduct. 2. Diagnosis of esophageal cancer recently. He has been depressed in response to recent diagnosis and had thoughts of hurting himself, took an overdose in an attempt to kill himself. He does not appear to meet criteria for major depressive episode. Does have possibly overly jolly affect, somewhat in keeping with the diagnosis and may well be minimizing his difficulties. PLAN: He is admitted to the inpatient psychiatry unit and placed on relevant precautions. We will look at obtaining collateral information. He has been seen by the department of medicine. I do not see a firm indication for him being on any scheduled psychotropics, such as an antidepressant at this point. He will be encouraged to participate in activities in the unit and I would anticipate a discharge within the next 5 days or so. It should be noted that he was seen in the presence of staff. The assessment took 30 minutes.
[2018-12-21 16:25] VITALS: BP 134/78
[2018-12-21] MEDS: metFORMIN (GLUCOPHAGE) 500 MG TAB PO SCH (17:43)
[2018-12-21] MEDS: ATORVASTATIN 20 MG TAB PO SCH (21:14)
[2018-12-22 06:32] VITALS: BP 107/66
[2018-12-22] MEDS: metFORMIN (GLUCOPHAGE) 500 MG TAB PO SCH ×2 (07:22→17:26)
[2018-12-22] MEDS: NICOTINE POLACRILEX 2 MG GUM PO PRN ×4 (07:22→22:16)
[2018-12-22] MEDS: MULTIVITAMINS/MINERALS THERAP 1 TAB PO SCH (08:40)
[2018-12-22] MEDS: ASPIRIN 81 MG ENTERIC TAB PO SCH (08:41)
--- NOTE | 2018-12-22 15:35 | MHIPN ---
DATE: 12/22/2018 VITAL SIGNS: Blood pressure 107/66, pulse 92, temperature 99.1. CHIEF COMPLAINT: Says feels good. SUBJECTIVE: He is seen for followup. He is seen in the presence of staff. Says feels good and that he had a good night. He says that he always sleeps well. Indicates has had contact with family, including his brother from [place], who apparently visited. He says that went well. He feels encouraged. MENTAL STATUS EXAMINATION: Neat, cooperative. There is no agitation. No psychomotor retardation. Coherent. Affect is broad. Denies any thoughts of harming himself or anyone else. No evidence of any psychosis. Cognition is grossly intact. Judgment and insight possibly improved. ASSESSMENT: 1. Adjustment disorder with disturbance of emotions and conduct. PLAN: Continue current care and observations. Encourage participation in activities on the unit. He will be seeing the assigned psychiatrist and the treatment team and further recommendations will be made. I anticipate a short stay.
[2018-12-22 16:33] VITALS: BP 128/72
[2018-12-22] MEDS: ATORVASTATIN 20 MG TAB PO SCH (22:14)
[2018-12-23] MEDS: NICOTINE POLACRILEX 2 MG GUM PO PRN ×4 (06:15→20:59)
[2018-12-23 06:36] VITALS: BP 136/74
[2018-12-23] MEDS: metFORMIN (GLUCOPHAGE) 500 MG TAB PO SCH ×2 (08:58→17:44)
[2018-12-23] MEDS: ASPIRIN 81 MG ENTERIC TAB PO SCH (08:58)
[2018-12-23] MEDS: MULTIVITAMINS/MINERALS THERAP 1 TAB PO SCH (08:58)
--- NOTE | 2018-12-23 10:55 | MHIPNPDOC ---
[facility] Progress Note Progress Note DATE OF SERVICE: 12/23/18 HISTORY: Per Dr. Meraz admit note: He is 63 years old. He is . He and his live together. He was brought to the hospital after he had taken an overdose of Klonopin, he says that he took five Klonopin pills, unknown strength of each tablet, it belongs to his . He took them as he wanted to . He says that this was after he had recently been diagnosed with esophageal cancer. He also has chron ic obstructive pulmonary disease, diabetes mellitus, and diverticulosis. Denies any mental health difficulties in the past. Says he has generally done well and when diagnosed with esophageal cancer just about a month ago, says began thinking of and did not want to of the illness itself and began having suicidal thoughts. He became more entrenched the last few days. Says the status of the cancer is not ascertained yet and that he has not had many workups after that. He says that he took several of his 's Klonopin and then apparently went to sleep. He says that his tried waking him up. He does not remember that. He says that he does not remember anything else until waking up in the aldana in the hospital. He says that he was told that he was quite confused, agitated, which is what was observed when he was brought in and that he does not remember any of it. He says that he is glad that he survived. He says that he has spoken with his brother as well, and aims to "pineda" the illness and "beat it." His brother has given him encouragement. He says that he had felt a bit down, not pervasively so, since the diagnosis. He does not think that his sleep or other habits changed, maintained a good appetite. He was seen by Dr. Aly on consult a couple of days ago, please refer to that note for details related to the circumstances of the admission. He refers to his attempt on the overdose as a "stupid move." VITAL SIGNS: See below. NEW TEST RESULTS: See below. CURRENT MEDICATIONS: See below. MENTAL STATUS EXAMINATION: Neat, cooperative. There is no agitation. No psychomotor retardation. Coherent. Mood is "alright." Affect is broad and euthymic. Denies any thoughts of harming himself or anyone else. No evidence of any psychosis. Cognition is grossly intact. Judgment and insight fair DIAGNOSES: Adjustment disorder with disturbance of emotions and conduct. ASSESSMENT:Pt seen and states that his mood is "alright." Per Dr. Meraz's note over the weekend, pt's symptoms of depression improved and he denied SI, stated is OD was "stupid move" to do and regretted it, had spoken with his brother in [place] and his who had also visited him on the unit which was nice. Brother and are very supportive. When seen today appears to acknowledge his goal of living life to the fullest with his and "no one loves me more than I love me!" Appears to have a good sense of humor and is very pleasant to talk to. States he slept well last night. Feels he is tolerating his medications and they're beneficial. He is attending groups and finding them helpful. He denies depression, anxiety, insomnia, SI/HI, hallucinations, delusions. Pt feels safe here. MANAGEMENT PLAN: d/c planning trazodone 50mg qhs prn insomnia TIME SPENT: 30 minutes. Vital Signs Vital Signs Date Time Temp Pulse Resp B/P (MAP) Pulse Ox O2 Delivery O2 Flow Rate FiO2 12/23/18 10:19 Room Air 12/23/18 06:36 99.0 85 14 136/74 (94) 12/20/18 14:14 96 Current Medications Current Medications Medications (Trade) Dose Ordered Sig/Becky Route PRN Reason Start Time Stop Time Status Last Admin Dose Admin Acetaminophen (Tylenol Tab) 650 mg Q6HP PRN PO HEADACHE or DISCOMFORT 12/20/18 14:15 Al Hydrox/Mg Hydrox/Simethicone (Mylanta) 30 ml Q4HP PRN PO HEARTBURN/INDIGESTION 12/20/18 14:15 Aspirin (Ecotrin) 81 mg DAILY PO 12/21/18 09:00 12/23/18 08:58 Atorvastatin Calcium (Lipitor) 20 mg QHS PO 12/21/18 21:00 12/22/18 22:14 Magnesium Hydroxide (Milk Of Magnesia) 30 ml DAILYPRN PRN PO CONSTIPATION 12/20/18 14:15 Metformin HCl (Glucophage) 500 mg BID@ PO 12/21/18 18:00 12/23/18 08:58 Multivitamins (Theragram-M) 1 tab DAILY PO 12/21/18 09:00 12/23/18 08:58 Nicotine (Nicorette) 2 mg Q2HP PRN PO NICOTINE WITHDRAWAL 12/20/18 19:30 12/23/18 06:15 Trazodone HCl (Desyrel) 50 mg QHSP PRN PO INSOMNIA 12/20/18 14:15 Allergies Coded Allergies: No Known Allergies (Unverified , 12/18/18) UDSTIN WEST DO Dec 23, 2018 10:55 am
[2018-12-23 15:27] VITALS: BP 118/59
[2018-12-23] MEDS: ATORVASTATIN 20 MG TAB PO SCH (20:58)
[2018-12-24 06:47] VITALS: BP 116/67
[2018-12-24] MEDS: NICOTINE POLACRILEX 2 MG GUM PO PRN (08:26)
[2018-12-24] MEDS: ASPIRIN 81 MG ENTERIC TAB PO SCH (08:26)
[2018-12-24] MEDS: MULTIVITAMINS/MINERALS THERAP 1 TAB PO SCH (08:26)
[2018-12-24] MEDS: metFORMIN (GLUCOPHAGE) 500 MG TAB PO SCH (08:26)
--- NOTE | 2018-12-24 08:44 | MHDSPDOC ---
[facility] Discharge Summary Discharge Summary DATE OF ADMISSION: Dec 20, 2018 at 12:04 pm DATE OF DISCHARGE: Dec 24, 2018 DISCHARGE DIAGNOSES: Adjustment disorder with disturbance of emotions and conduct. REASON FOR ADMISSION: Per Dr. Meraz admit note: He is 63 years old. He is . He and his live together. He was brought to the hospital after he had taken an overdose of Klonopin, he says that he took five Klonopin pills, unknown strength of each tablet, it belongs to his . He took them as he wanted to . He says that this was after he had recently been diagnosed with esophageal cancer. He also has chronic obstructive pulmonary disease, diabetes mellitus, and diverticulosis. Denies any mental health difficulties in the past. Says he has generally done well and when diagnosed with esophageal cancer just about a month ago, says began thinking of and did not want to of the illness itself and began having suicidal thoughts. He became more entrenched the last few days. Says the status of the cancer is not ascertained yet and that he has not had many workups after that. He says that he took several of his 's Klonopin and then apparently went to sleep. He says that his tried waking him up. He does not remember that. He says that he does not remember anything else until waking up in the aldana in the hospital. He says that he was told that he was quite confused, agitated, which is what was observed when he was brought in and that he does not remember any of it. He says that he is glad that he survived. He says that he has spoken with his brother as well, and aims to "pineda" the illness and "beat it." His brother has given him encouragement. He says that he had felt a bit down, not pervasively so, since the diagnosis. He does not think that his sleep or other habits changed, maintained a good appetite. He was seen by Dr. Aly on consult a couple of days ago, please refer to that note for details related to the circumstances of the admission. He refers to his attempt on the overdose as a "stupid move." CONSULTANTS INVOLVED: medicine regarding esophageal cancer TREATMENT AND PROGRESS ON THE UNIT : [facility], seen for psychiatric assessment and and monitored for safety. He was not started on an antidepressant medication as he choose to try outpatient therapy first as treatment. He was provided trazodone 50mg qhs prn insomnia. He was restarted on his outpatient medical medication and followed by medical team regarding his diagnosis of esophageal cancer and put on a mechanical diet. He attended groups daily during his stay. His symptoms improved with treatment. On day of discharge he denied depression, anxiety, insomnia, SI/HI, hallucinations, delusi ons. He was discharged home with follow-up at [facility]. He felt safe for discharge. DISCHARGE ASSESSMENT: Pt seen and states that his mood is "good" and that he's looking forward to going home and spending time with his . Pt regretted his OD calling it at "stupid move" and would never do again but wanted to live his life to the fullest. During his stay he spoke with his brother in [place] and his who had also visited him on the unit which was nice. Brother and are very supportive. When seen today appears to acknowledge his goal of living life to the fullest with his and "no one loves me more than I love m e!" Appears to have a good sense of humor and is very pleasant to talk to. States he slept well last night. Feels he is tolerating his medications and they're beneficial. He is attending groups and finding them helpful. He denies depression, anxiety, insomnia, SI/HI, hallucinations, delusions. Pt feels safe to discharge home today. MENTAL STATUS EXAMINATION ON DISCHARGE: Neat, cooperative. There is no agitation. No psychomotor retardation. Coherent. Mood is "good." Affect is broad, congruent, and euthymic. Denies any thoughts of harming himself or anyone else. No evidence of any psychosis. Cognition is grossly intact. Judgment and insight good MEDICATIONS ON DISCHARGE: none resume outpatient medical medications PLAN/FOLLOWUP ARRANGEMENTS: D/c home with follow-up at [facility]. The amount of time spent in the coordination of care for this patient was approximately 30 minutes. Vital Signs/I&Os Vital Signs Date Time Temp Pulse Resp B/P (MAP) Pulse Ox O2 Delivery O2 Flow Rate FiO2 12/24/18 06:47 98.8 85 16 116/67 (83) 12/23/18 10:19 Room Air 12/20/18 14:14 96 Medications Scheduled Aspirin (Aspirin EC) 81 Mg Tab, 81 MG PO DAILY, (Reported) Atorvastatin Calcium (Atorvastatin Calcium) 20 Mg Tab, 20 MG PO QHS, (Reported) Metformin HCl (Metformin HCl) 500 Mg Tab, 500 MG PO BID, (Reported) Multivitamin (Multivitamins) 1 Each Capsule, 1 CAP PO DAILY, (Reported) Allergies Coded Allergies: No Known Allergies (Unverified , 12/18/18) DUSTIN WEST DO Dec 24, 2018 8:44 am
== END 2018-12-24 09:45 | disposition home or self-care (01) | DRG 755 ==
LOC: M PSY 12:04
PROVIDERS: ADMIT Psychiatry & Neurology Psychiatry; ATTEND Psychiatry & Neurology Psychiatry
DX: F43.25 Adjustment disorder with mixed disturbance of emotions and conduct (principal); C15.9 Malignant neoplasm of esophagus, unspecified; J44.9 Chronic obstructive pulmonary disease, unspecified; E11.9 Type 2 diabetes mellitus without complications; K57.90 Diverticulosis of intestine, part unspecified, without perforation or abscess without bleeding; E78.5 Hyperlipidemia, unspecified; T42.4X2A Poisoning by benzodiazepines, intentional self-harm, initial encounter; Z98.1 Arthrodesis status; Z87.891 Personal history of nicotine dependence; Z79.82 Long term (current) use of aspirin; Z79.84 Long term (current) use of oral hypoglycemic drugs

== ENCOUNTER 2019-02-14 08:38 | Emergency (ER) | payer MEDICAID, OTHER ==
[~2019-02-14] VITALS: Ht 175.3 cm; Wt 84.5 kg
[2019-02-14 08:39] VITALS: BP 149/80
[2019-02-14] MEDS ORDERED: METF500T13 (08:46)
[2019-02-14] MEDS ORDERED: KEFL500C17 PO (09:23)
[2019-02-14] MEDS ORDERED: BACITRACIN OINT 30GM TOP ONE (09:30)
[2019-02-14] MEDS ORDERED: ADACEL/BOOSTRIX VACCINE (DIPHTH/PERTUSS/ACELL/TETANUS)0.5ML SYR (90715) IM ONE (09:30)
== END 2019-02-14 09:49 | disposition home or self-care (01) ==
LOC: M ED 08:38
DX: S50.811A Abrasion of right forearm, initial encounter (principal); W01.0XXA Fall on same level from slipping, tripping and stumbling without subsequent striking against object, initial encounter; Y92.410 Unspecified street and highway as the place of occurrence of the external cause; E11.9 Type 2 diabetes mellitus without complications; J44.9 Chronic obstructive pulmonary disease, unspecified; F33.9 Major depressive disorder, recurrent, unspecified; F41.9 Anxiety disorder, unspecified; E78.5 Hyperlipidemia, unspecified; Z79.84 Long term (current) use of oral hypoglycemic drugs; Z79.82 Long term (current) use of aspirin; F17.210 Nicotine dependence, cigarettes, uncomplicated

== ENCOUNTER 2019-02-23 19:10 | Inpatient (IN) | payer OTHER ==
[~2019-02-23] VITALS: Ht 175.3 cm; Wt 81.4 kg
[~2019-02-23 19:10] MED LIST changes: +KEFL500C17 PO; +METF500T13
[2019-02-23] MEDS ORDERED: ONDA4TAB6 PO (19:15)
[2019-02-23] MEDS ORDERED: NS 500 ML IV ONE ×2 (20:15→21:30)
[2019-02-23 20:34] LABS: BASO % 0.7 % (0.0-1.0); EOS # 0.3 10^3/uL (0.0-0.5); EOS % 6.1 % (0.0-3.0); HEMATOCRIT 42.6 % (42.0-52.0); HEMOGLOBIN 14.1 g/dl (13.5-17.5); LYMPH # 0.8 10^3/uL (1.5-5.0); LYMPH % 19.2 % (24.0-44.0); MEAN CORPUSCULAR HEMOGLOBIN 31.3 pg (27.0-33.0); MEAN CORPUSCULAR HGB CONC 33.1 g/dl (32.0-36.5); MEAN CORPUSCULAR VOLUME 94.5 fl (80.0-96.0); MONO # 0.6 10^3/uL (0.0-0.8); MONO % 13.4 % (0.0-5.0); NEUTROPHILS # 2.5 10^3/uL (1.5-8.5); NEUTROPHILS % 60.1 % (36.0-66.0); PLATELET COUNT, AUTOMATED 211 10^3/uL (150-450); RED BLOOD COUNT 4.51 10^6/uL (4.30-6.10); WHITE BLOOD COUNT 4.1 10^3/uL (4.0-10.0)
[2019-02-23 20:44] LABS: INR 1.12; PROTHROMBIN TIME 14.1 SECONDS (11.8-14.0)
[2019-02-23 20:45] LABS: PARTIAL THROMBOPLASTIN TIME 26.7 SECONDS (25.0-38.4)
[2019-02-23 20:58] LABS: ALBUMIN 3.6 GM/DL (3.2-5.2); ALT/SGPT 18 U/L (12-78); BILIRUBIN,DIRECT 0.2 MG/DL (0.0-0.2); BILIRUBIN,TOTAL 0.6 MG/DL (0.2-1.0); BLOOD UREA NITROGEN 16 MG/DL (7-18); CALCIUM LEVEL 8.8 MG/DL (8.8-10.2); CARBON DIOXIDE LEVEL 30 MEQ/L (21-32); CHLORIDE LEVEL 102 MEQ/L (98-107); CREATININE FOR GFR 0.78 MG/DL (0.70-1.30); GLOMERULAR FILTRATION RATE > 60.0 (>49); GLUCOSE, FASTING 111 MG/DL (70-100); POTASSIUM SERUM 3.9 MEQ/L (3.5-5.1); SODIUM LEVEL 140 MEQ/L (136-145); TOTAL PROTEIN 6.8 GM/DL (6.4-8.2)
[2019-02-23] MEDS ORDERED: HumaLOG INSULIN (NovoLOG) PER UNIT SC SCH (21:00)
[2019-02-23] MEDS ORDERED: ATORVASTATIN 20 MG TAB PO SCH (21:00)
[2019-02-23] MEDS ORDERED: ISOVUE-370 76% 100ML VIAL (Q9967) As Ordered ONE (21:06)
[2019-02-23] MEDS ORDERED: ACETAMINOPHEN TAB 650MG DOSE (2X325MG) PO ONE (21:30)
--- NOTE | 2019-02-23 21:54 | REPVR ---
PROCEDURE INFORMATION: Exam: CT Angiography Chest With Contrast Exam date and time: 02/23/2019 9:14 PM Age: 63 years old Clinical indication: Cough and fever; Additional info: Fever, cough, tachycardia TECHNIQUE: Imaging protocol: Computed tomographic angiography of the chest with intravenous contrast. 3D rendering: MIP and/or 3D reconstructed images were created by the technologist. Radiation optimization: All CT scans at this facility use at least one of these dose optimization techniques: automated exposure control; mA and/or kV adjustment per patient size (includes targeted exams where dose is matched to clinical indication); or iterative reconstruction. Contrast material: ISOVUE 370; Contrast volume: 75 ml; Contrast route: IV; COMPARISON: CT Chest with contrast 12/18/2018 6:38 PM FINDINGS: Pulmonary arteries: No focal pulmonary artery filling defect to suggest acute pulmonary embolus. Aorta: No thoracic aortic aneurysm or dissection. Lungs: Pulmonary vascular/interstitial pattern does not suggest active pulmonary edema. Mild apical predominant centrilobular emphysema. Focal areas of groundglass opacity in the superior segment right lower lobe and right middle lobe. No airspace consolidation. No central endobronchial lesion. Pleural space: No pleural effusion or pneumothorax. Heart: No cardiac enlargement or pericardial effusion. Mediastinum: Hiatal hernia measuring 4 cm is present. Lymph nodes: No enlarged mediastinal lymph nodes. Bones/joints: Bony structures show no acute fracture or destructive process. IMPRESSION: 1. No evidence of acute pulmonary embolus. 2. New areas of vague groundglass opacity in the right lower lobe and right middle lobe not present on the CT from December 2018. These likely represent focal inflammatory or infectious areas without consolidation. 3. Underlying centrilobular emphysema. 4. 4 cm hiatal hernia which can be a source of chest pain in the setting of GE reflux. Electronically signed by: Julio Beck On 02/23/2019 21:53:42 PM
[2019-02-23 22:52] VITALS: O2SAT 93
[2019-02-23] MEDS ORDERED: IBUPROFEN 600 MG TAB PO ONE (23:15)
[2019-02-23] MEDS ORDERED: cefTRIAXone SOD 1 GM in D5W MINI-BAG PLUS 50 ML IV ONE (23:30)
[2019-02-23] MEDS ORDERED: AZITHROMYCIN INJ 500 MG, VIAL MATE ADAPTER 1 EACH in D5W 250 ML IV ONE (23:30)
[2019-02-23] MEDS ORDERED: GLUCOSE 4 GM CHEW TABLET PO PRN (23:45)
[2019-02-23] MEDS ORDERED: ALBUTEROL SULFATE 2.5 MG/0.5 ML INH NEB SOLN INH PRN (23:45)
[2019-02-23] MEDS ORDERED: GLUCAGON FOR INJ 1 MG VIAL (J1610) SC PRN (23:45)
[2019-02-23] MEDS ORDERED: DEXTROSE 50% 50 ML SYRINGE IV PRN (23:45)
--- NOTE | 2019-02-23 23:50 | HPEPDOC ---
General Date of Admission 02/23/19 Date of Service: Feb 23, 2019 Chief Complaint The patient is a 63-year-old male admitted with a reason for visit of Flu/Cold Symptoms. Source: Patient Timing/Duration: Day(s) Severity: Moderate History of Present Illness Patient is 63 years old male with past medical history of esophageal cancer currently on chemotherapy, COPD, diabetes presented to the hospital with increased cough and shortness of breath. Patient stated that for past few days he has been having cough associated with fever of 100 and chills. Of note patient recently completed 2 cycles of chemotherapy for esophageal cancer, the last cycle was on February 17. In emergency room patient was found to have fever of 101, no leukocytosis, tachycardia with heart rate around 110. Chest CT was done and showed new areas of vague groundglass opacity in the right lower lobe and right middle lobe not present on the CT from December 2018. Respiratory panel was negative Home Medications Scheduled Aspirin (Aspirin EC) 81 Mg Tab, 81 MG PO DAILY, (Reported) Atorvastatin Calcium (Atorvastatin Calcium) 20 Mg Tab, 20 MG PO QHS, (Reported) Metformin HCl (Metformin HCl) 500 Mg Tab, 500 MG PO BID, (Reported) Multivitamin (Multivitamins) 1 Each Capsule, 1 CAP PO DAILY, (Reported) Scheduled PRN Ondansetron (Ondansetron Odt) 4 Mg Tab.rapdis, 4 MG PO Q6-8HP PRN for nausea/vomiting, (Reported) Allergies Coded Allergies: No Known Allergies (Unverified , 02/23/19) Past Medical History Medical History COPD, esophageal cancer Family History Father from heart attack, mother from kidney failure, brother had lung cancer, and another brother had prostate cancer Social History Alcohol: Denies Drugs: denies A-FIB/CHADSVASC A-FIB History Current/History of A-Fib/PAF?: No Current PO Anticoag Therapy: No Review of Systems Constitutional: Reports: Chills, Fever Eyes: Denies: Pain ENT: Denies: Head Aches Skin: Denies: Rash Pulmonary: Reports: Dyspnea, Cough Cardiovascular: Denies: Chest Pain, Palpitations Gastrointestinal: Denies: Nausea Genitourinary: Denies: Dysuria, Frequency Hematologic: Denies: Bruising, Bleeding Excessively Endocrine: Denies: Polydipsia, Polyphagia Musculoskeletal: Denies: Neck Pain, Back Pain Neurological: Denies: Weakness Psych: Reports: Mood Normal Physical Examination General Exam: Positive: Alert, Cooperative Eye Exam: Positive: PERRLA ENT Exam: Positive: Atraumatic Neck Exam: Positive: Supple; Negative: JVD Chest Exam: Positive: Rhonchi, Diminished Heart Exam: Positive: Tachycardic Telemetry: Positive: Sinus Abdomen Exam: Positive: Normal bowel sounds Extremity Exam: Negative: Clubbing Skin Exam: Positive: Nl turgor and temperature Neuro Exam: Positive: Strength at 5/5 X4 ext, Cranial Nerves 3-12 NL Psych Exam: Positive: Mental status NL Vital Signs Vital Signs Date Time Temp Pulse Resp B/P (MAP) Pulse Ox O2 Delivery O2 Flow Rate FiO2 02/23/19 23:00 100.5 118 126/69 (88) 93 02/23/19 22:52 Room Air 02/23/19 19:12 18 Laboratory Data Labs 24H Laboratory Tests 2 02/23/19 20:22: Immature Granulocyte % (Auto) 0.5, Neutrophils (%) (Auto) 60.1, Lymphocytes (%) (Auto) 19.2L, Monocytes (%) (Auto) 13.4H, Eosinophils (%) (Auto) 6.1H, Basophils (%) (Auto) 0.7, Neutrophils # (Auto) 2.5, Lymphocytes # (Auto) 0.8L, Monocytes # (Auto) 0.6, Eosinophils # (Auto) 0.3, Basophils # (Auto) 0.0, Nucleated Red Blood Cells % (auto) 0.0, Prothrombin Time 14.1H, Prothromb Time International Ratio 1.12, Activated Partial Thromboplast Time 26.7, Anion Gap 8, Glomerular Filtration Rate > 60.0, Lactic Acid Level 0.9, Calcium Level 8.8, Total Bilirubin 0.6, Direct Bilirubin 0.2, Aspartate Amino Transf (AST/SGOT) 11, Alanine Aminotransferase (ALT/SGPT) 18, Alkaline Phosphatase 103, Total Protein 6.8, Albumin 3.6, Albumin/Globulin Ratio 1.13 02/23/19 22:19: Urine Color YELLOW, Urine Appearance CLEAR, Urine pH 7.0, Urine Specific Jenkins 1.043, Urine Protein NEGATIVE, Urine Glucose (UA) NEGATIVE, Urine Ketones TRACEH, Urine Blood NEGATIVE, Urine Nitrite NEGATIVE, Urine Bilirubin NEGATIVE, Urine Urobilinogen 0.2, Urine Leukocyte Esterase NEGATIVE, Urine WBC (Auto) 0, Urine RBC (Auto) 2, Urine Hyaline Casts (Auto) 0, Urine Bacteria (Auto) NEGATIVE, Urine Squamous Epithelial Cells 0, Urine Amorphous Sediment SMALLH, Urine Mucus (Auto) SMALL, Urine Sperm (Auto) CBC/BMP Laboratory Tests 02/23/19 20:22 Microbiology Microbiology 02/23/19 Group A Streptococcus Screen (CHRISTIANO), Received Pending 02/23/19 Blood Culture, Received Pending 02/23/19 Respiratory Virus Panel (PCR) (CHRISTIANO) - Final, Complete 02/23/19 Blood Culture, Received Pending Assessment/Plan Patient is 63 years old male with past medical history of esophageal cancer currently on chemotherapy, COPD, diabetes presented to the hospital with increased cough and shortness of breath. Patient stated that for past few days he has been having cough associated with fever of 100 and chills. Of note patient recently completed 2 cycles of chemotherapy for esophageal cancer, the last cycle was on February 17. In emergency room patient was found to have fever of 101, no leukocytosis, tachycardia with heart rate around 110. Patient was diagnosed with sepsis secondary to community acquired pneumonia Problems (1) Sepsis Status: Acute Problem Text: Patient has fever, tachycardia Secondary to community-acquired pneumonia Azithromycin IV, ceftriaxone IV IV fluid Sputum culture and blood culture (2) Community acquired pneumonia Status: Acute Problem Text: Respiratory panel negative Imaging study showed New areas of vague groundglass opacity in the right lower lobe and right middle lobe not present on the CT from December 2018 DuoNeb [id number] Ceftriaxone IV, azithromycin IV (3) Diabetes mellitus Status: Chronic Problem Text: Insulin sliding scale, diabetes diet Glucose levels under control Plan / VTE VTE Prophylaxis Ordered?: Yes YFN MURPHY DO Feb 23, 2019 23:50
[2019-02-24] MEDS ORDERED: cefTRIAXone SOD 1 GM in D5W MINI-BAG PLUS 50 ML IV SCH (01:00)
[2019-02-24 01:02] VITALS: BP 100/81
[2019-02-24] MEDS: NS 1,000 ML IV SCH ×3 (01:10→15:26)
[2019-02-24] MEDS: ACETAMINOPHEN TAB 650MG DOSE (2X325MG) PO SCH ×5 (01:31→15:32)
[2019-02-24] MEDS ORDERED: AZITHROMYCIN INJ 500 MG, VIAL MATE ADAPTER 1 EACH in D5W 250 ML IV SCH (02:00)
[2019-02-24 06:00] VITALS: BP 129/72
--- NOTE | 2019-02-24 08:08 | REP ---
Clinical: Cough and fever . Comparison: 12/18/2018 . Technique: PA and lateral. Findings: The mediastinum and cardiac silhouette are normal. [id number]-[id number]-[id number] identified with tip in the SVC. The lung josue the straight chronic stable changes. No acute consolidation, effusion, or pneumothorax. Cervical fixation noted. The skeletal structures are intact and normal. Impression: 1. No acute cardiopulmonary process. Electronically Signed by Ji Rodríguez MD 02/24/2019 07:59 A
--- NOTE | 2019-02-24 08:38 | ECGEPIP ---
[facility] - ED Test Date: 2019-02-23 Pat Name: BERNADINE WADDELL Department: Room: [place] [address] Gender: Male [employer] Operator: SOWMYA : [id number] Requested By: ELVER Rico Order Number: [id number] Reading MD: Zaid Dash Measurements Intervals [place] Rate: 120 P: 87 MA: 155 QRS: 95 QRSD: 97 T: 73 QT: 300 QTc: 425 Interpretive Statements SINUS TACHYCARDIA BORDERLINE RIGHT AXIS DEVIATION SIMILAR TO 12/18/18 Electronically Signed on 02-24-2019 8:38:28 EST by Zaid Dash
[2019-02-24] MEDS: HumaLOG INSULIN (NovoLOG) PER UNIT SC SCH ×2 (08:42→12:00)
[2019-02-24 08:50] LABS: HEMATOCRIT 38.4 % (42.0-52.0); HEMOGLOBIN 12.3 g/dl (13.5-17.5); MEAN CORPUSCULAR HEMOGLOBIN 30.8 pg (27.0-33.0); PLATELET COUNT, AUTOMATED 166 10^3/uL (150-450); WHITE BLOOD COUNT 4.9 10^3/uL (4.0-10.0)
[2019-02-24] MEDS ORDERED: ASPIRIN 81 MG ENTERIC TAB PO SCH (09:00)
[2019-02-24] MEDS ORDERED: HEPARIN SOD (PORCINE) 5000 UNITS/ML VIAL SC SCH (09:00)
[2019-02-24 09:14] LABS: BLOOD UREA NITROGEN 12 MG/DL (7-18); CARBON DIOXIDE LEVEL 27 MEQ/L (21-32); CHLORIDE LEVEL 107 MEQ/L (98-107); CREATININE FOR GFR 0.66 MG/DL (0.70-1.30); GLOMERULAR FILTRATION RATE > 60.0 (>49); GLUCOSE, FASTING 131 MG/DL (70-100); MAGNESIUM LEVEL 2.1 MG/DL (1.8-2.4); POTASSIUM SERUM 3.8 MEQ/L (3.5-5.1); SODIUM LEVEL 140 MEQ/L (136-145)
--- NOTE | 2019-02-24 10:27 | IPNPDOC ---
Text Note Date of Service The patient was seen on 02/24/19. NOTE SUBJECTIVE: This is hospital day 2. Patient feels that he has improved. He denies dyspnea, chest pain, abdominal pain, and food aspiration. Pt has no additional complaints at this time. OBJECTIVE: VITALS: Please see below. GENERAL: Pt appears stated age and is in no acute distress. HEENT: Normocephalic, atraumatic. No rhinorrhea. No conjunctival injection. CARDIOVASCULAR: Regular rate and rhythm. No murmurs, rubs, or gallops. LUNGS: Faint inspiratory wheezes audible in the left upper and lower lobes, and in the right upper and middle lobes. Remaining lung josue clear. No rales or rhonchi. ABDOMEN: No tenderness in any quadrant. SKIN: Warm, pink, dry. PSYCH: Alert & oriented x4. Full affect. Pt is calm and cooperative. Pt answers questions appropriately. ASSESSMENT: Pt is a 63-year-old male with a past medical history of esophageal cancer (currently on chemotherapy), COPD, and diabetes mellitus who presented to the [facility] Emergency Department with increased cough and dyspnea. He is being treated for sepsis secondary to community acquired pneumonia. PLAN: 1. Sepsis - Continue IV fluids - Sputum and blood cultures pending 2. Community-acquired pneumonia - Today is antibiotics day 2: IV ceftriaxone and IV azithromycin. Will change to oral cefdinir 300mg PO BID in preparation for discharge. - Temperature improved to 98.0 as of this morning - Continue DuoNebs - Monitor for improvement 3. Diabetes mellitus - Continue consistent carbohydrate diet - Continue fingerstick glucose monitoring before meals and at bedtime - Continue sliding scale insulin as ordered 4. VTE Prophylaxis: Subcutaneous heparin DISPOSITION: Continue monitoring. Discharge pending clinical improvement. VS,Fishbone, I+O VS, Fishbone, I+O Laboratory Tests 02/23/19 20:22 Vital Signs Date Time Temp Pulse Resp B/P (MAP) Pulse Ox O2 Delivery O2 Flow Rate FiO2 02/24/19 06:00 98.0 85 18 129/72 (91) 93 Room Air I&O- Last 24 Hours up to 6 AM 02/24/19 06:00 Intake Total 1830 ml Balance 1830 ml GME ATTESTATION GME ATTESTATION My faculty preceptor for this patient encounter was physically present during the encounter and was fully available. All aspects of the patient interview, examination, medical decision making process, and medical care plan development were reviewed and approved by the faculty preceptor. The faculty preceptor is aware and concurs with the plan as stated in the body of this note and will attest to such by his/her cosignature. ARON CANTU OMS-III Feb 24, 2019 07:46
[2019-02-24] MEDS ORDERED: CEFD1CAP8 PO (10:57)
--- NOTE | 2019-02-24 11:17 | DS.PDOC ---
Discharge Summary General Date of Admission Feb 23, 2019 at 23:34 Date of Discharge Feb 24, 2019 Primary Care Physician: Paris Reis MD Attending Physician: SHAUNA CHO MD Discharge Summary PROCEDURES PERFORMED DURING STAY: None. ADMITTING DIAGNOSES: 1. Sepsis secondary to community-acquired pneumonia. 2. Diabetes mellitus DISCHARGE DIAGNOSES: 1. Community-acquired pneumonia 2. Sepsis - resolved 3. Diabetes mellitus COMPLICATIONS/CHIEF COMPLAINT: Sepsis. HISTORY OF PRESENT ILLNESS: Patient is a 63-year-old male with a past medical history of esophageal cancer (currently on chemotherapy), COPD, and diabetes mellitus who presented to the [facility] Emergency Department with increased cough and dyspnea. The cough had begun a few days ago and was associated with a fever of 100 and chills. Pt has had two rounds of chemotherapy, and the last cycle was on February 17, 2019. HOSPITAL COURSE: Pt was evaluated in the emergency department and was found to have a fever of 101 and tachycardia. There was no leukocytosis or hypotension. Pt met SIRS criteria. He was admitted and started on IV fluids per sepsis protocol, IV ceftriaxone, and IV azithromycin. Chest x-ray and CT angiography were performed (see below). Diabetes mellitus care was via sliding scale insulin. Pt was continuously monitored for improvement of symptoms. On hospital day 2, irregular heart rhythm was noted on telemetry. On EKG, irregular rhythm was confirmed with associated non-conducted P waves. Pt denied associated dyspnea, chest pain, and palpitations during this episode. Pt's pneumonia was much improved, and it was determined that he was stable for discharge to continue his antibiotics treatment on an outpatient basis. DISCHARGE MEDICATIONS: Please see below. ALLERGIES: Please see below. PHYSICAL EXAMINATION ON DISCHARGE: VITAL SIGNS: Please see below. GENERAL: Pt appears stated age and is in no acute distress. HEENT: Normocephalic, atraumatic. No rhinorrhea. No conjunctival injection. CARDIOVASCULAR EXAMINATION: Regular rate and rhythm. No murmurs, rubs, or gallops. RESPIRATORY EXAMINATION: Faint inspiratory wheezes audible in the left upper and lower lobes, and in the right upper and middle lobes. Remaining lung josue clear. No rales or rhonchi. ABDOMINAL EXAMINATION: No organomegaly. No tenderness. EXTREMITIES: No peripheral edema. SKIN: Warm, pink, dry. NEUROLOGICAL EXAMINATION: Pt moves all limbs spontaneously. PSYCHIATRIC EXAMINATION: Alert & oriented x4. Full affect. Pt is calm and cooperative. Pt answers questions appropriately. LABORATORY DATA: Please see below. IMAGIN. Chest X-Ray 02/23/2019: From report: "No acute cardiopulmonary process." 2. CT Angiography with Contrast 02/23/2019: From report: "No evidence of acute pulmonary embolus. New areas of vague groundglass opacity in the right lower lobe and right middle lobe not present on the CT from December 2018. These likely represent focal inflammatory or infectious areas without consolidation. Underlying centrilobular emphysema. 4 cm hiatal hernia which can be a source of chest pain in the setting of GE reflux." PROGNOSIS: Fair ACTIVITY: As tolerated. DIET: As tolerated. DISCHARGE PLAN: Discharge home with oral antibiotics. DISPOSITION: Discharge home. DISCHARGE INSTRUCTIONS: 1. Complete antibiotics course. 2. Follow up with primary care physician 3. Return to the emergency department in case of worsening symptoms. ITEMS TO FOLLOWUP ON ON OUTPATIENT: 1. Resolution of community-acquired pneumonia 2. Irregular heart rhythm DISCHARGE CONDITION: Stable. TIME SPENT ON DISCHARGE: 32 minutes. I have personally evaluated and examined the patient. Discussed with residents/student regarding plan of care and agree with the above assessment and plan. Vital Signs/I&Os Vital Signs Date Time Temp Pulse Resp B/P (MAP) Pulse Ox O2 Delivery O2 Flow Rate FiO2 02/24/19 06:00 98.0 85 18 129/72 (91) 93 Room Air I&O- Last 24 Hours up to 6 AM 02/24/19 05:59 Intake Total 1050 ml Balance 1050 ml Laboratory Data Labs 24H Laboratory Tests 2 02/23/19 20:22: Immature Granulocyte % (Auto) 0.5, Neutrophils (%) (Auto) 60.1, Lymphocytes (%) (Auto) 19.2L, Monocytes (%) (Auto) 13.4H, Eosinophils (%) (Auto) 6.1H, Basophils (%) (Auto) 0.7, Neutrophils # (Auto) 2.5, Lymphocytes # (Auto) 0.8L, Monocytes # (Auto) 0.6, Eosinophils # (Auto) 0.3, Basophils # (Auto) 0.0, Nucleated Red Blood Cells % (auto) 0.0, Prothrombin Time 14.1H, Prothromb Time International Ratio 1.12, Activated Partial Thromboplast Time 26.7, Anion Gap 8, Glomerular Filtration Rate > 60.0, Lactic Acid Level 0.9, Calcium Level 8.8, Total Bilirubin 0.6, Direct Bilirubin 0.2, Aspartate Amino Transf (AST/SGOT) 11, Onel ne Aminotransferase (ALT/SGPT) 18, Alkaline Phosphatase 103, Total Protein 6.8, Albumin 3.6, Albumin/Globulin Ratio 1.13 02/23/19 22:19: Urine Color YELLOW, Urine Appearance CLEAR, Urine pH 7.0, Urine Specific [place] 1.043, Urine Protein NEGATIVE, Urine Glucose (UA) NEGATIVE, Urine Ketones TRACEH, Urine Blood NEGATIVE, Urine Nitrite NEGATIVE, Urine Bilirubin NEGATIVE, Urine Urobilinogen 0.2, Urine Leukocyte Esterase NEGATIVE, Urine WBC (Auto) 0, Urine RBC (Auto) 2, Urine Hyaline Casts (Auto) 0, Urine Bacteria (Auto) NEGATIVE, Urine Squamous Epithelial Cells 0, Urine Amorphous Sediment SMALLH, Urine Mucus (Auto) SMALL, Urine Sperm (Auto) 02/24/19 01:28: Bedside Glucose (Misc Panel) 131H 02/24/19 08:00: Anion Gap 6L, Glomerular Filtration Rate > 60.0, Calcium Level 8.0L, Magnesium Level 2.1 02/24/19 08:01: Nucleated Red Blood Cells % (auto) 0.0 02/24/19 08:05: Bedside Glucose (Misc Panel) 129H CBC/BMP Laboratory Tests 02/23/19 20:22 02/24/19 08:00 02/24/19 08:01 FSBS Laboratory Tests Test 02/24/19 01:28 02/24/19 08:05 Range/Units Bedside Glucose (Misc Panel) 131 129 80-115 MG/DL Microbiology Microbiology 02/24/19 Gram Stain, Received Pending 02/24/19 Sputum Culture, Received Pending 02/23/19 Group A Streptococcus Screen (CHRISTIANO), Received Pending 02/23/19 Blood Culture, Received Pending 02/23/19 Respiratory Virus Panel (PCR) (CHRISTIANO) - Final, Complete 02/23/19 Blood Culture, Received Pending Discharge Medications Scheduled Aspirin (Aspirin EC) 81 Mg Tab, 81 MG PO DAILY, (Reported) Atorvastatin Calcium (Atorvastatin Calcium) 20 Mg Tab, 20 MG PO QHS, (Reported) Cefdinir (Cefdinir) 300 Mg Capsule, 1 CAP PO BID Metformin HCl (Metformin HCl) 500 Mg Tab, 500 MG PO BID, (Reported) Multivitamin (Multivitamins) 1 Each Capsule, 1 CAP PO DAILY, (Reported) Scheduled PRN Ondansetron (Ondansetron Odt) 4 Mg Tab.rapdis, 4 MG PO Q6-8H PRN for nausea/vomiting, (Reported) Allergies Coded Allergies: No Known Allergies (Unverified , 02/23/19) ARON CANTU-III Feb 24, 2019 11:17 SHAUNA CHO MD Feb 24, 2019 16:45
[2019-02-24 12:37] LABS: FREE THYROXINE INDEX 3.6 % (1.4-3.8); T UPTAKE 33 % (33-40); THYROID STIMULATING HORMONE 0.961 uIU/ML (0.358-3.740); THYROXINE (T4) 10.9 UG/DL (4.5-12.0)
[2019-02-24 14:00] VITALS: BP 129/76
--- NOTE | 2019-02-25 08:26 | ECGEPIP ---
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 Order Number: [id number] Reading MD: Augie Dee Measurements Intervals [place] Rate: 85 P: [place]: 0 QRS: 72 QRSD: 108 T: 63 QT: 345 QTc: 410 Interpretive Statements Sinus rhythm with intervals of atrial flutter This is a rhythm change when compared to tracing done 02-23-19 Electronically Signed on 02-25-2019 8:26:12 EST by Augie Dee
[2019-02-26 14:23] LABS: BODY FLUID CULTURE Not indicated. (.); ORGANISM ID Not indicated. (.); SPECIMEN SOURCE Urine (.); URINE STREP PNEUMONIAE ANTIGEN Negative (Negative)
== END 2019-02-24 16:16 | disposition home or self-care (01) | DRG 720 ==
LOC: M ED 19:10 → M ED INP 23:34 → M MSPAV 02-24 01:02
PROVIDERS: ADMIT Internal Medicine; ATTEND Student in an Organized Health Care Education/Training Program
DX: A41.9 Sepsis, unspecified organism (principal); J18.9 Pneumonia, unspecified organism; J44.9 Chronic obstructive pulmonary disease, unspecified; C15.9 Malignant neoplasm of esophagus, unspecified; E11.9 Type 2 diabetes mellitus without complications; Z79.82 Long term (current) use of aspirin; Z79.84 Long term (current) use of oral hypoglycemic drugs; Z79.899 Other long term (current) drug therapy

== ENCOUNTER 2019-05-05 11:58 | Observation (INO) | payer OTHER ==
[~2019-05-05] VITALS: Ht 177.8 cm; Wt 82.2 kg
[~2019-05-05 11:58] MED LIST changes: +CEFD1CAP8 PO; +ONDA4TAB6 PO
[2019-05-05] MEDS ORDERED: ESCI10TA2 PO (12:27)
[2019-05-05 12:39] LABS: HEMATOCRIT 36.9 % (42.0-52.0); HEMOGLOBIN 12.8 g/dl (13.5-17.5); MEAN CORPUSCULAR HEMOGLOBIN 32.8 pg (27.0-33.0); MEAN CORPUSCULAR HGB CONC 34.7 g/dl (32.0-36.5); MEAN CORPUSCULAR VOLUME 94.6 fl (80.0-96.0); PLATELET COUNT, AUTOMATED 104 10^3/uL (150-450); WHITE BLOOD COUNT 2.7 10^3/uL (4.0-10.0)
[2019-05-05 12:58] LABS: PROTHROMBIN TIME 12.9 SECONDS (11.8-14.0)
[2019-05-05 12:59] LABS: PARTIAL THROMBOPLASTIN TIME 31.7 SECONDS (25.0-38.4)
[2019-05-05 13:07] LABS: LYMPHOCYTES 19 % (16-44); MONOCYTES 9 % (0-5); NEUTROPHILS 60 % (28-66)
[2019-05-05 13:08] LABS: PLATELET ESTIMATE DECREASED (NORMAL)
[2019-05-05 13:16] LABS: ALBUMIN 3.3 GM/DL (3.2-5.2); ALT/SGPT 29 U/L (12-78); BILIRUBIN,DIRECT 0.1 MG/DL (0.0-0.2); BILIRUBIN,TOTAL 0.8 MG/DL (0.2-1.0); BLOOD UREA NITROGEN 23 MG/DL (7-18); CALCIUM LEVEL 8.8 MG/DL (8.8-10.2); CARBON DIOXIDE LEVEL 30 MEQ/L (21-32); CHLORIDE LEVEL 100 MEQ/L (98-107); CK-MB VALUE MASS < 1.0 NG/ML (<3.6); CPK CREATINE PHOSPHOKINASE 155 U/L (39-308); CREATININE FOR GFR 0.69 MG/DL (0.70-1.30); FREE T4 1.41 NG/DL (0.76-1.46); GLOMERULAR FILTRATION RATE > 60.0 (>49); GLUCOSE, FASTING 130 MG/DL (70-100); LIPASE 40 U/L (73-393); MB/CK RELATIVE INDEX 0.65 (< OR =4); POTASSIUM SERUM 4.6 MEQ/L (3.5-5.1); SODIUM LEVEL 137 MEQ/L (136-145); TROPONIN I < 0.02 NG/ML (< 0.10)
[2019-05-05] MEDS ORDERED: ISOVUE-370 76% 100ML VIAL (Q9967) As Ordered ONE (13:45)
[2019-05-05] MEDS ORDERED: NS 500 ML IV ONE (13:45)
--- NOTE | 2019-05-05 14:08 | REP ---
CHEST, TWO VIEWS: Comparison 02/23/2019. Two views of the chest are performed. There is no acute infiltrate and no change since prior study. Heart is normal in size and the mediastinal silhouette is unchanged. Right central venous catheter is again seen with the tip in the superior vena cava. Metallic plate and screws are seen in the lower cervical spine. IMPRESSION: No acute pulmonary disease. Electronically Signed by Sammy Collazo MD 05/05/2019 05:55 P
[2019-05-05 14:12] LABS: INFLUENZA A AMPLIFICATION POSITIVE (NEGATIVE); INFLUENZA B AMPLIFICATION NEGATIVE (NEGATIVE)
--- NOTE | 2019-05-05 14:40 | REP ---
CT pulmonary angiogram: With IV contrast. History: Chest pain and shortness of breath. Comparison studies: Comparison CT pulmonary angiogram February 23, 2019. Contrast dose: 75 mL of Isovue [address] technique: Helical scanning is acquired and overlapping 1.5 mm and contiguous 3 mm axial images are reformatted. In addition, maximum intensity projection and multiplanar re-formation images are generated in sagittal and coronal imaging projections. CT pulmonary angiographic findings: There is good opacification of the pulmonary arterial tree and there is no CT evidence of pulmonary embolism. No evidence of aortic aneurysm or dissection is seen. Some vascular calcification is noted. There is no evidence of pleural effusion or upper abdominal ascites. A small sliding hiatal hernia is noted. No hilar or mediastinal mass or adenopathy is observed. There is some mild bronchial wall thickening diffusely in the upper and lower lobes consistent with bronchitis. There are bullae in the lung apices bilaterally. No pulmonary mass lesion is seen. There is a very small area of linear parenchymal fibrosis in the right upper lobe. There are several bilateral subcentimeter pulmonary nodules scattered in the lung josue unchanged from the most recent prior study as well as a remote prior study from March 10, 2011. No significant pulmonary nodule is seen. No pleural effusion is noted. Normal adrenal glands are seen bilaterally. Visualized upper abdominal structures are otherwise unremarkable. No bony destructive lesion is appreciated. Impression: No CT evidence of pulmonary embolus. Old granulomatous calcifications. Sliding-type hiatal hernia. Colonic diverticulosis is noted. There is a bronchitis pattern diffusely with bronchial wall thickening. Emphysematous changes are noted in the lung apices. Electronically Signed by lIan Castro MD 05/05/2019 08:05 P
[2019-05-05] MEDS ORDERED: OSELTAMIVIR PHOSPHATE 75 MG CAP (TAMIFLU) PO ONE (15:15)
[2019-05-05] MEDS ORDERED: LIDO2.5C15 TOP (15:29)
[2019-05-05] MEDS ORDERED: BISA5TAB73 PO (15:29)
[2019-05-05] MEDS ORDERED: NICO4GUM44 PO (15:29)
[2019-05-05] MEDS ORDERED: ONDA-196 PO (15:29)
[2019-05-05] MEDS ORDERED: PROC10TA4 PO (15:29)
[2019-05-05] MEDS ORDERED: GLUCAGON FOR INJ 1 MG VIAL (J1610) SC PRN (16:30)
[2019-05-05] MEDS ORDERED: DEXTROSE 50% 50 ML SYRINGE IV PRN (16:30)
[2019-05-05] MEDS ORDERED: GLUCOSE 4 GM CHEW TABLET PO PRN (16:30)
[2019-05-05] MEDS ORDERED: IPRATROPIUM 0.5MG/ALBUTEROL 2.5MG INH SOL UD 3ML (DUONEB)(J7620) NEB PRN (16:30)
--- NOTE | 2019-05-05 17:03 | HPEPDOC ---
[facility] Medical History & Physical Date of Admission May 05, 2019 Date of Service: May 05, 2019 Attending Physician: ALENA NI MD History and Physical CHIEF COMPLAINT: SOB, cough, malaise HISTORY OF PRESENT ILLNESS: 63 y.o male w/ PMH of Esophageal Ca completed chemo/radiation (last week), COPD, DM & HLD presents from home with SOB, cough & malaise. His symptoms started 4-5 days ago, also has associated nausea, myalgia & arthralgia. He was found to be Flu positive in the ED. He is currently comfortable in bed, on room air, without additional complaints. He has slight leukopenia, no differential, will be admitted for observation overnight. 10 point review of system is negative except for above. PAST MEDICAL HISTORY: 1. Esophageal Ca 2. COPD 3. DM 4. HLD PAST SURGICAL HISTORY: 1. Neck fusion SOCIAL HISTORY: Ex-smoker, smoked 2 PDD for 30+ years Social alcohol use denies drug use FAMILY HISTORY: positive for heart disease ALLERGIES: Please see below. HOME MEDICATIONS: Please see below. PHYSICAL EXAMINATION: VITAL SIGNS: See below GENERAL APPEARANCE: No distress HEENT: Moist mucus membranes CARDIOVASCULAR: S1, S2, no murmurs LUNGS: scattered rhonchi ABDOMEN: soft, non-tender, non-distended, +BS EXTREMITIES: ROM intact NEUROLOGICAL: no focal deficits PSYCHIATRIC: calm LABORATORY DATA: See below. IMAGING: CT w/o acute pathology MICROBIOLOGY: Please see below. ASSESSMENT: 63 y.o male w/ multiple medical comorbidites admitted for influenza. PLAN: 1. Influenza A - admit for observation, leukopenic, will get differential, will discuss with oncologist regarding Neupogen if patient is neutropenic. duoneb PRN, supplemental oxygen as needed to maintain O2 sats between 88-92%. 2. DM - Sliding scale insulin w/ meals & at bedtime 3. COPD - duoneb PRN 4. HLD - continue statin DVT Prophylaxis - Lovenox GI Prophylaxis - not needed Vital Signs Vital Signs Date Time Temp Pulse Resp B/P (MAP) Pulse Ox O2 Delivery O2 Flow Rate FiO2 05/05/19 15:00 91 17 150/80 (103) 92 Room Air 05/05/19 13:28 98.9 Laboratory Data Labs 24H Laboratory Tests 2 05/05/19 12:24: Neutrophils (%) (Auto) , Lymphocytes # (Auto) , Nucleated Red Blood Cells % (auto) 0.0, Neutrophils 60, Band Neutrophils 12H, Lymphocytes (Manual) 19, Monocytes (Manual) 9H, Platelet Estimate DECREASED, Prothrombin Time 12.9, Prothromb Time International Ratio 1.00, Activated Partial Thromboplast Time 31.7, Anion Gap 7L, Glomerular Filtration Rate > 60.0, Calcium Level 8.8, Total Bilirubin 0.8, Direct Bilirubin 0.1, Aspartate Amino Transf (AST/SGOT) 43H, Alanine Aminotransferase (ALT/SGPT) 29, Alkaline Phosphatase 93, Total Creatine Kinase 155, Creatine Kinase MB < 1.0, Creatine Kinase MB Relative Index 0.65, Troponin I < 0.02, Total Protein 7.0, Albumin 3.3, Albumin/Globulin Ratio 0.89L, Lipase 40L, Thyroid Stimulating Hormone (TSH) 1.460, Free Thyroxine 1.41 05/05/19 13:37: Influenza Type A (RT-PCR) POSITIVEH, Influenza Type B (RT-PCR) NEGATIVE CBC/BMP Laboratory Tests 05/05/19 12:24 Microbiology Microbiology 05/05/19 Blood Culture, Received Pending 05/05/19 Blood Culture, Received Pending Home Medications Scheduled Aspirin (Aspirin EC) 81 Mg Tab, 81 MG PO DAILY Atorvastatin Calcium (Atorvastatin Calcium) 20 Mg Tab, 20 MG PO QHS Bisacodyl (Bisacodyl) 5 Mg Tablet.dr, 5 MG PO QHS Escitalopram Oxalate (Escitalopram Oxalate) 10 Mg Tablet, 10 MG PO DAILY Metformin HCl (Metformin HCl) 500 Mg Tab, 500 MG PO BID Multivitamin (Multivitamins) 1 Each Capsule, 1 CAP PO DAILY Scheduled PRN Lidocaine/Prilocaine (Lidocaine-Prilocaine Cream) 2.5%/2.5% Cream..g., 1 DOSE TOP PRN PRN for PORT ACCESS Nicotine Polacrilex (Nicotine Gum) 4 Mg Gum, 4 MG PO Q2H PRN for NICOTINE WITHDRAWAL Ondansetron HCl (Ondansetron HCl) 8 Mg Tablet, 8 MG PO TID PRN for NAUSEA OR VOMITING Prochlorperazine Maleate (Prochlorperazine Maleate) 10 Mg Tablet, 10 MG PO Q6H PRN for NAUSEA OR VOMITING Allergies Coded Allergies: No Known Allergies (Unverified , 02/23/19) A-FIB/CHADSVASC A-FIB History Current/History of A-Fib/PAF?: No ALENA NI MD May 05, 2019 17:03
[2019-05-05 17:55] VITALS: BP 141/82
[2019-05-05] MEDS: HumaLOG INSULIN (NovoLOG) PER UNIT SC SCH (18:11)
[2019-05-05] MEDS: ENOXAPARIN 40 MG/0.4 ML SYRINGE (J1650) SC SCH (18:11)
[2019-05-05 20:20] VITALS: BP 132/81
--- NOTE | 2019-05-05 20:54 | ECGEPIP ---
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
[2019-05-05] MEDS ORDERED: BISACODYL 5 MG TAB PO SCH (21:00)
[2019-05-05] MEDS ORDERED: HumaLOG INSULIN (NovoLOG) PER UNIT SC SCH (21:00)
[2019-05-05] MEDS ORDERED: ATORVASTATIN 20 MG TAB PO SCH (21:00)
[2019-05-06 05:57] VITALS: BP 123/78
[2019-05-06 07:07] LABS: HEMOGLOBIN 11.9 g/dl (13.5-17.5); MEAN CORPUSCULAR HEMOGLOBIN 33.3 pg (27.0-33.0); MEAN CORPUSCULAR VOLUME 95.2 fl (80.0-96.0); PLATELET COUNT, AUTOMATED 102 10^3/uL (150-450); RED BLOOD COUNT 3.57 10^6/uL (4.30-6.10); WHITE BLOOD COUNT 2.3 10^3/uL (4.0-10.0)
[2019-05-06 07:32] LABS: ALBUMIN 2.7 GM/DL (3.2-5.2); ALT/SGPT 30 U/L (12-78); BILIRUBIN,TOTAL 0.4 MG/DL (0.2-1.0); BLOOD UREA NITROGEN 17 MG/DL (7-18); CALCIUM LEVEL 8.4 MG/DL (8.8-10.2); CARBON DIOXIDE LEVEL 31 MEQ/L (21-32); CHLORIDE LEVEL 103 MEQ/L (98-107); CREATININE FOR GFR 0.58 MG/DL (0.70-1.30); GLOMERULAR FILTRATION RATE > 60.0 (>49); GLUCOSE, FASTING 119 MG/DL (70-100); POTASSIUM SERUM 3.6 MEQ/L (3.5-5.1); SODIUM LEVEL 138 MEQ/L (136-145); TOTAL PROTEIN 6.6 GM/DL (6.4-8.2)
[2019-05-06] MEDS: HumaLOG INSULIN (NovoLOG) PER UNIT SC SCH ×2 (08:38→12:00)
[2019-05-06] MEDS: ENOXAPARIN 40 MG/0.4 ML SYRINGE (J1650) SC SCH (08:38)
[2019-05-06] MEDS ORDERED: ASPIRIN 81 MG ENTERIC TAB PO SCH (09:00)
[2019-05-06] MEDS ORDERED: ESCITALOPRAM OXALATE 10 MG TAB (LEXAPRO) PO SCH (09:00)
[2019-05-06] MEDS ORDERED: OSELTAMIVIR PHOSPHATE 75 MG CAP (TAMIFLU) PO SCH (09:00)
[2019-05-06] MEDS ORDERED: OSEL75CA2 PO (10:41)
[2019-05-06 11:08] LABS: ATYPICAL LYMPH 2 % (0-5); EOSINOPHILS 3 % (0-3); LYMPHOCYTES 16 % (16-44); MONOCYTES 2 % (0-5); MYELOCYTES 2 % (0-0); NEUTROPHILS 70 % (28-66)
[2019-05-06 11:09] LABS: ANISOCYTOSIS 1+; PLATELET ESTIMATE DECREASED (NORMAL)
--- NOTE | 2019-05-06 13:22 | DS.PDOC ---
Discharge Summary General Date of Admission May 05, 2019 at 11:59 Date of Discharge 05/06/19 Attending Physician: ALENA NI MD Discharge Summary PROCEDURES PERFORMED DURING STAY: None. ADMITTING DIAGNOSES: 1. Influenza. DISCHARGE DIAGNOSES: 1. Influenza. COMPLICATIONS/CHIEF COMPLAINT: Copd,Diabetes Mellitus,Esophageal Cancer,Hld. HISTORY OF PRESENT ILLNESS: 63-year-old male with past medical history of COPD, diabetes mellitus, esophageal cancer, status post chemoradiation was admitted for influenza. Patient has done well overnight, currently on room air, resting comfortably in chair, having mild dyspnea and dry cough, no other complaints. Patient is clinically stable for discharge and outpatient follow-up. Patient did have mild leukopenia but does not have neutropenia, gave prescription for repeat CBC in 3 days as white count is trending down slowly. Patient is strongly advised to follow with oncologist and PCP within 1-2 weeks for further management. HOSPITAL COURSE: As above. DISCHARGE MEDICATIONS: Please see below. ALLERGIES: Please see below. PHYSICAL EXAMINATION: VITAL SIGNS: See below GENERAL APPEARANCE: No distress HEENT: Moist mucus membranes CARDIOVASCULAR: S1, S2, no murmurs LUNGS: scattered rhonchi ABDOMEN: soft, non-tender, non-distended, +BS EXTREMITIES: ROM intact NEUROLOGICAL: no focal deficits PSYCHIATRIC: calm LABORATORY DATA: Please see below. PROGNOSIS: Fair ACTIVITY: As tolerated. DIET: Cardiac with consistent carbs DISCHARGE PLAN: Follow with oncologist and PCP within 1-2 weeks DISPOSITION: Home. DISCHARGE INSTRUCTIONS: 1. As above. DISCHARGE CONDITION: Stable. TIME SPENT ON DISCHARGE: Greater than 22 minutes. Vital Signs/I&Os Vital Signs Date Time Temp Pulse Resp B/P (MAP) Pulse Ox O2 Delivery O2 Flow Rate FiO2 05/06/19 05:57 97.4 107 19 123/78 (93) 95 Nasal Cannula 2.0 I&O- Last 24 Hours up to 6 AM 05/06/19 06:00 Intake Total 1450 ml Output Total 0 ml Balance 1450 ml Laboratory Data Labs 24H Laboratory Tests 2 05/05/19 13:37: Influenza Type A (RT-PCR) POSITIVEH, Influenza Type B (RT-PCR) NEGATIVE 05/05/19 18:03: Bedside Glucose (Misc Panel) 121H 05/05/19 20:17: Bedside Glucose (Misc Panel) 202H 3/3/20 06:51: Neutrophils (%) (Auto) , Nucleated Red Blood Cells % (auto) 0.0, Neutrophils 70H, Band Neutrophils 5, Lymphocytes (Manual) 16, Monocytes (Manual) 2, Eosinophils (Manual) 3, Myelocytes 2H, Atypical Lymphocytes 2, Anisocytosis 1+, Macrocytosis 1+, Platelet Estimate DECREASED, Anion Gap 4L, Glomerular Filtration Rate > 60.0, Calcium Level 8.4L, Magnesium Level 2.0, Total Bilirubin 0.4, Aspartate Amino Transf (AST/SGOT) 20, Alanine Aminotransferase (ALT/SGPT) 30, Alkaline Phosphatase 86, Total Protein 6.6, Albumin 2.7L, Albumin/Globulin Ratio 0.69L 05/06/19 11:24: Bedside Glucose (Misc Panel) 168H CBC/BMP Laboratory Tests 05/06/19 06:51 FSBS Laboratory Tests Test 05/05/19 18:03 05/05/19 20:17 05/06/19 11:24 Range/Units Bedside Glucose (Misc Panel) 121 202 168 80-115 MG/DL Microbiology Microbiology 05/05/19 Blood Culture, Received Pending 05/05/19 Blood Culture - Preliminary, Resulted No growth after 24 hours . All specim... Discharge Medications Scheduled Aspirin (Aspirin EC) 81 Mg Tab, 81 MG PO DAILY, (Reported) Atorvastatin Calcium (Atorvastatin Calcium) 20 Mg Tab, 20 MG PO QHS, (Reported) Bisacodyl (Bisacodyl) 5 Mg Tablet.dr, 5 MG PO QHS, (Reported) Escitalopram Oxalate (Escitalopram Oxalate) 10 Mg Tablet, 10 MG PO DAILY, (Reported) Metformin HCl (Metformin HCl) 500 Mg Tab, 500 MG PO BID, (Reported) Multivitamin (Multivitamins) 1 Each Capsule, 1 CAP PO DAILY, (Reported) Oseltamivir Phosphate (Oseltamivir Phosphate) 75 Mg Capsule, 75 MG PO BID Scheduled PRN Lidocaine/Prilocaine (Lidocaine-Prilocaine Cream) 2.5%/2.5% Cream..g., 1 DOSE TOP PRN PRN for PORT ACCESS, (Reported) Nicotine Polacrilex (Nicotine Gum) 4 Mg Gum, 4 MG PO Q2H PRN for NICOTINE WITHDRAWAL, (Reported) Ondansetron HCl (Ondansetron HCl) 8 Mg Tablet, 8 MG PO TID PRN for NAUSEA OR VOMITING, (Reported) Prochlorperazine Maleate (Prochlorperazine Maleate) 10 Mg Tablet, 10 MG PO Q6H PRN for NAUSEA OR VOMITING, (Reported) Allergies Coded Allergies: No Known Allergies (Unverified , 02/23/19) ALENA NI MD May 06, 2019 13:22
== END 2019-05-06 13:00 | disposition home or self-care (01) ==
LOC: M ED 11:58 → M ED INP 11:59 → ENRESERVDT 16:55 → ENRESERVTM 16:55 → M MS5PR 17:59
PROVIDERS: ADMIT Internal Medicine; ATTEND Internal Medicine
DX: J09.X2 Influenza due to identified novel influenza A virus with other respiratory manifestations (principal); D72.819 Decreased white blood cell count, unspecified; J44.9 Chronic obstructive pulmonary disease, unspecified; E11.9 Type 2 diabetes mellitus without complications; E78.5 Hyperlipidemia, unspecified; C15.9 Malignant neoplasm of esophagus, unspecified; Z92.21 Personal history of antineoplastic chemotherapy; Z92.3 Personal history of irradiation; Z79.899 Other long term (current) drug therapy; Z79.82 Long term (current) use of aspirin; Z79.84 Long term (current) use of oral hypoglycemic drugs; Z87.891 Personal history of nicotine dependence
CPT/HCPCS: 36415; 71046; 71275; 80048; 80053; 80076; 82550; 82553; 83690; 83735; 84145; 84439; 84443; 85007; 85025; 85027; 85610; 85730; 87040; 87502; 93005; 93041; 94760; 96360; 96372; 99285; J1650; Q9967

== ENCOUNTER → 2019-05-12 | Outpatient (REF) | payer OTHER ==
[~2019-05-12] MED LIST changes: +BISA5TAB73 PO; +ESCI10TA2 PO; +LIDO2.5C15 TOP; +NICO4GUM44 PO; +ONDA-196 PO; +OSEL75CA2 PO; +PROC10TA4 PO
[2019-05-12 17:27] LABS: BLOOD UREA NITROGEN 19 MG/DL (7-18); CALCIUM LEVEL 9.1 MG/DL (8.8-10.2); CARBON DIOXIDE LEVEL 30 MEQ/L (21-32); CHLORIDE LEVEL 103 MEQ/L (98-107); CREATININE FOR GFR 0.72 MG/DL (0.70-1.30); GLOMERULAR FILTRATION RATE > 60.0 (>49); GLUCOSE, FASTING 191 MG/DL (70-100); POTASSIUM SERUM 4.4 MEQ/L (3.5-5.1); SODIUM LEVEL 139 MEQ/L (136-145)
== END ==
LOC: M LABDRAW1 15:52
PROVIDERS: ATTEND Internal Medicine
DX: Z00.00 Encounter for general adult medical examination without abnormal findings (principal)

== ENCOUNTER → 2019-07-24 | Outpatient (REF) | payer OTHER ==
[~2019-07-24] MED LIST changes: +ATIV1TAB10 PO; +GABA-845 PO; +GUAI100L12 PO; +LOPE1CAP5 PO; +METO50TA7 PO; +OXYC-403 PO; +PANT40TA3 PO
[2019-07-24 12:34] LABS: ALBUMIN 2.4 GM/DL (3.2-5.2); ALT/SGPT 34 U/L (12-78); BILIRUBIN,TOTAL 0.3 MG/DL (0.2-1.0); BLOOD UREA NITROGEN 16 MG/DL (7-18); CALCIUM LEVEL 8.2 MG/DL (8.8-10.2); CARBON DIOXIDE LEVEL 32 MEQ/L (21-32); CHLORIDE LEVEL 100 MEQ/L (98-107); GLOMERULAR FILTRATION RATE > 60.0 (>49); GLUCOSE, FASTING 158 MG/DL (70-100); POTASSIUM SERUM 4.3 MEQ/L (3.5-5.1); SODIUM LEVEL 138 MEQ/L (136-145); TOTAL PROTEIN 6.5 GM/DL (6.4-8.2)
[2019-07-24 12:58] LABS: HEMOGLOBIN A1c 6.9 %
== END ==
LOC: M SHH 10:42
PROVIDERS: ATTEND Family Medicine
DX: E11.69 Type 2 diabetes mellitus with other specified complication (principal)

== ENCOUNTER 2019-07-27 10:41 | Emergency (ER) | payer OTHER ==
[~2019-07-27 10:41] MED LIST changes: -ATIV1TAB10 PO; -GABA-845 PO; -GUAI100L12 PO; -LOPE1CAP5 PO; -METO50TA7 PO; -OXYC-403 PO; -PANT40TA3 PO
[2019-07-27] MEDS ORDERED: ACETAMINOPHEN 325 MG TAB PO ONE (11:00)
[2019-07-27] MEDS ORDERED: ALBUTEROL 90 MCG/ACT 8GM HFA INHALER INH ONE (11:00)
[2019-07-27 11:18] LABS: VENOUS BASE EXCESS 1.6 (-2.0-2.0); VENOUS HCO3 25.6 MEQ/L (23.0-27.0); VENOUS O2 SATURATION 91.2 % (60.0-80.0); VENOUS PARTIAL PRESSURE O2 62.4 mmHg (30.0-50.0); VENOUS PH 7.446 UNITS (7.330-7.430); VENOUS STANDARD HCO3 25.8 MEQ/L; VENOUS TOTAL CO2 26.7 MEQ/L (24.0-28.0)
[2019-07-27 11:27] LABS: HEMATOCRIT 31.7 % (42.0-52.0); HEMOGLOBIN 10.1 g/dl (13.5-17.5); MEAN CORPUSCULAR HEMOGLOBIN 29.8 pg (27.0-33.0); MEAN CORPUSCULAR HGB CONC 31.9 g/dl (32.0-36.5); MEAN CORPUSCULAR VOLUME 93.5 fl (80.0-96.0); PLATELET COUNT, AUTOMATED 352 10^3/uL (150-450); RED BLOOD COUNT 3.39 10^6/uL (4.30-6.10); WHITE BLOOD COUNT 9.1 10^3/uL (4.0-10.0)
[2019-07-27] MEDS ORDERED: METO50TA7 PO (11:27)
[2019-07-27] MEDS ORDERED: OXYC-403 PO (11:27)
[2019-07-27] MEDS ORDERED: GABA-845 PO (11:27)
[2019-07-27] MEDS ORDERED: GUAI100L12 PO (11:27)
[2019-07-27] MEDS ORDERED: ATIV1TAB10 PO (11:27)
[2019-07-27] MEDS ORDERED: PANT40TA3 PO (11:27)
[2019-07-27] MEDS ORDERED: LOPE1CAP5 PO (11:27)
[2019-07-27 11:32] LABS: INR 1.11
--- NOTE | 2019-07-27 11:48 | REP ---
Clinical: Cough and dyspnea . Comparison: 05/05/2019 . Findings: The mediastinum and cardiac silhouette are stable and within normal limits for portable technique. [id number] identified with tip in the SVC. Lung josue demonstrate diffuse chronic stable changes including biapical scarring and mildly prominent pulmonary vasculature similar to prior examination. There is a new small to moderate right pleural effusion with right basilar atelectasis. Impression: New small to moderate right pleural effusion and right lower lobe atelectasis. Electronically Signed by Ji Rodríguez MD 07/27/2019 11:39 A
[2019-07-27 11:52] LABS: LYMPHOCYTES 6 % (16-44); MONOCYTES 12 % (0-5); NEUTROPHILS 82 % (28-66); PLATELET ESTIMATE NORMAL (NORMAL)
[2019-07-27 11:54] LABS: ALBUMIN 2.4 GM/DL (3.2-5.2); ALT/SGPT 33 U/L (12-78); BILIRUBIN,DIRECT 0.1 MG/DL (0.0-0.2); BILIRUBIN,TOTAL 0.2 MG/DL (0.2-1.0); BLOOD UREA NITROGEN 14 MG/DL (7-18); CALCIUM LEVEL 9.2 MG/DL (8.8-10.2); CARBON DIOXIDE LEVEL 32 MEQ/L (21-32); CHLORIDE LEVEL 97 MEQ/L (98-107); CK-MB VALUE MASS < 1.0 NG/ML (<3.6); CPK CREATINE PHOSPHOKINASE 30 U/L (39-308); CREATININE FOR GFR 0.63 MG/DL (0.70-1.30); GLOMERULAR FILTRATION RATE > 60.0 (>49); GLUCOSE, FASTING 180 MG/DL (70-100); MB/CK RELATIVE INDEX 3.33 (< OR =4); POTASSIUM SERUM 4.4 MEQ/L (3.5-5.1); SODIUM LEVEL 133 MEQ/L (136-145); THYROID STIMULATING HORMONE 0.659 uIU/ML (0.358-3.740); TROPONIN I < 0.02 NG/ML (< 0.10)
--- NOTE | 2019-07-27 12:06 | ECGEPIP ---
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
[2019-07-27] MEDS ORDERED: ISOVUE-370 76% 100ML VIAL As Ordered ONE (12:13)
--- NOTE | 2019-07-27 12:53 | REP ---
Clinical: Acute chest pain with fever and shortness of breath. Technique: Axial contrast enhanced images from the thoracic inlet to the upper abdomen using 75 ml Isovue 370 intravenous contrast material with coronal and sagittal re-formations. Comparison: 05/05/2019. Findings: There is no evidence for pulmonary embolus. Lung josue demonstrate advanced chronic emphysematous and interstitial changes. The patient is known to be status post recent esophagectomy and gastric pull-through procedure. Postsurgical changes to the mediastinum as well as few scattered mediastinal and hilar lymph nodes are identified measuring up to approximately 16 mm. There is a drainage catheter along the right side of the mediastinum along the area of prior surgery extending via the pleural space posteriorly at the right lung base. New areas of somewhat ill-defined patchy atelectasis/consolidation along the medial right upper lobe as well as small scattered patchy ill-defined infiltrates noted in the bilateral lower lobes (left greater than right) as well as moderate right pleural effusion and passive right basilar atelectasis. Heart and pericardium are grossly normal. Impression: 1. Recent esophagectomy and gastric pull-through procedure new compared to 05/05/2019. Few scattered mediastinal and right hilar lymph nodes measure up to 16 mm. 2. No evidence for pulmonary embolus. 3. Patchy ill-defined small areas of infiltrate primarily noted in the bilateral lower lobes (left greater than right) along with atelectasis in the right lower lobe and moderate right pleural effusion. Electronically Signed by Ji Rodríguez MD 07/27/2019 12:43 P
[2019-07-27] MEDS ORDERED: PIPERACILLIN/TAZOBACTAM SOD 4.5 GM in D5W MINI-BAG PLUS 50 ML IV ONE (13:45)
[2019-07-27 14:50] VITALS: BP 133/58
== END 2019-07-27 14:55 | disposition short-term general hospital (02) ==
LOC: M ED 10:41 → EDBD 10:41 → M ED 14:55
DX: T81.40XA Infection following a procedure, unspecified, initial encounter (principal); Y83.8 Other surgical procedures as the cause of abnormal reaction of the patient, or of later complication, without mention of misadventure at the time of the procedure; E11.9 Type 2 diabetes mellitus without complications; I48.91 Unspecified atrial fibrillation; J44.9 Chronic obstructive pulmonary disease, unspecified; E78.9 Disorder of lipoprotein metabolism, unspecified; Z79.899 Other long term (current) drug therapy
CPT/HCPCS: 71045; 71275; 80048; 80076; 82550; 82553; 82803; 83605; 84443; 85025; 85610; 87040; 93005; 93041; 94760; 96365; 99285; J2543; Q9967; U0002

== ENCOUNTER 2019-08-30 15:35 | Emergency (ER) | payer OTHER ==
[~2019-08-30] VITALS: Ht 175.3 cm; Wt 84.3 kg
[~2019-08-30 15:35] MED LIST changes: +ATIV1TAB10 PO; +GABA-845 PO; +GUAI100L12 PO; +LOPE1CAP5 PO; +METO50TA7 PO; +OXYC-403 PO; +PANT40TA3 PO
[2019-08-30] MEDS ORDERED: ATOR1TAB21 PO (16:00)
[2019-08-30] MEDS ORDERED: DRON2.5C11 PO (16:00)
[2019-08-30] MEDS ORDERED: ECOT81TA5 PO (16:00)
[2019-08-30] MEDS ORDERED: FERR325T3 PO (16:00)
[2019-08-30] MEDS ORDERED: METF500T13 PO (16:00)
[2019-08-30] MEDS ORDERED: ZOFR8TAB24 PO (16:00)
[2019-08-30] MEDS ORDERED: ATIV1TAB10 PO (16:00)
[2019-08-30] MEDS ORDERED: CULT10CA4 TF (16:00)
[2019-08-30] MEDS: GASTROGRAFIN SOLUTION 30ML PO SCH ×2 (16:44→17:49)
[2019-08-30] MEDS ORDERED: ISOVUE-370 76% 100ML VIAL As Ordered ONE (18:05)
[2019-08-30 18:24] VITALS: BP 137/67
--- NOTE | 2019-08-30 18:48 | REPVR ---
PROCEDURE INFORMATION: Exam: CT Abdomen And Pelvis With Contrast Exam date and time: 08/30/2019 4:05 PM Age: 63 years old Clinical indication: Condition or disease; Non-vascular catheter/shunt placement or management; Prior surgery; Surgery date: <1 month; Surgery type: J tube placement; Additional info: Assess j-tube balloon and patency TECHNIQUE: Imaging protocol: Computed tomography of the abdomen and pelvis with intravenous contrast. Radiation optimization: All CT scans at this facility use at least one of these dose optimization techniques: automated exposure control; mA and/or kV adjustment per patient size (includes targeted exams where dose is matched to clinical indication); or iterative reconstruction. Contrast material: ISOVUE 370; Contrast volume: 100 ml; Contrast route: INTRAVENOUS (IV); Other contrast: Oral, gastrografin, 600; COMPARISON: No relevant prior studies available. FINDINGS: ABDOMEN: Partial esophagectomy and gastric pull-through changes are present. 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 Right pleural effusion is present, decreased in size since the recent prior CT with adjacent atelectasis. There is a new confluent opacity at the left lung base measuring 4.3 x 2.5 cm with peripheral spiculation and lateral nodularity, which has developed over the short interim. Liver, spleen, gallbladder, pancreas and adrenal glands are unremarkable. Kidneys appear normal, with no stone, solid mass or hydronephrosis. Jejunostomy or ileostomy catheter is present, left upper quadrant. No small bowel obstruction, free air or inflammatory process involving bowel. Atherosclerotic change present in the aorta, without aneurysm. Main portal and splenic veins enhance normally. No enlarged lymph nodes. PELVIS: Normal caliber appendix is identified, with no adjacent inflammation. Diverticular changes are present within the colon without inflammation. Urinary bladder appears normal. Bony structures are normal except for lumbar spine degenerative disc changes. IMPRESSION: Jejunostomy catheter appears appropriately positioned. The balloon is inflated within a loop of bowel deep to the anterior abdominal wall. No obstructive change. Contrast material is present in small bowel and proximal colon at the time of the exam and I do not see evidence of a distal anastomotic dehiscence or obstruction involving the gastric pull-through. New confluent posterior left lung opacity measuring 4.3 x 2.5 cm which has developed over 1 month since the prior CT. I cannot exclude neoplastic growth although this would be significant growth in 1 month time if neoplastic. Electronically signed by: Julio Beck On 08/30/2019 18:47:26 PM
== END 2019-08-30 19:39 | disposition home or self-care (01) ==
LOC: M ED 15:35
DX: K94.20 Gastrostomy complication, unspecified (principal)
CPT/HCPCS: 74177; 80047; 99283; Q9963; Q9967

== ENCOUNTER 2019-09-29 21:45 | Emergency (ER) | payer OTHER ==
[~2019-09-29 21:45] MED LIST changes: +CULT10CA4 TF; +DRON2.5C11 PO; +ECOT81TA5 PO; +FERR325T3 PO; +METF500T13 PO; +PANT40TA29 PO; -PANT40TA3 PO; +ZOFR8TAB24 PO
== END 2019-09-29 21:50 | disposition home or self-care (01) ==
LOC: M ED 21:45
DX: K94.13 Enterostomy malfunction (principal); I10 Essential (primary) hypertension; E11.9 Type 2 diabetes mellitus without complications; Z79.899 Other long term (current) drug therapy; Z85.01 Personal history of malignant neoplasm of esophagus; Z92.3 Personal history of irradiation; Z92.21 Personal history of antineoplastic chemotherapy; Z87.891 Personal history of nicotine dependence

== ENCOUNTER 2019-10-26 14:23 | Emergency (ER) | payer OTHER ==
[~2019-10-26] VITALS: Ht 175.3 cm; Wt 81.8 kg
[2019-10-26 16:19] LABS: BASO % 0.5 % (0.0-1.0); EOS # 0.2 10^3/uL (0.0-0.5); EOS % 4.3 % (0.0-3.0); HEMATOCRIT 36.8 % (42.0-52.0); LYMPH # 0.6 10^3/uL (1.5-5.0); LYMPH % 13.9 % (24.0-44.0); MEAN CORPUSCULAR HEMOGLOBIN 29.1 pg (27.0-33.0); MEAN CORPUSCULAR HGB CONC 32.6 g/dl (32.0-36.5); MEAN CORPUSCULAR VOLUME 89.3 fl (80.0-96.0); MONO # 0.5 10^3/uL (0.0-0.8); MONO % 12.1 % (0.0-5.0); NEUTROPHILS # 2.7 10^3/uL (1.5-8.5); NEUTROPHILS % 68.9 % (36.0-66.0); PLATELET COUNT, AUTOMATED 251 10^3/uL (150-450); RED BLOOD COUNT 4.12 10^6/uL (4.30-6.10)
[2019-10-26] MEDS ORDERED: GASTROGRAFIN SOLUTION 30ML (Q9963) As Ordered ONE (16:24)
[2019-10-26 16:44] LABS: ALBUMIN 3.3 GM/DL (3.2-5.2); BILIRUBIN,DIRECT 0.1 MG/DL (0.0-0.2); BILIRUBIN,TOTAL 0.3 MG/DL (0.2-1.0); TOTAL PROTEIN 6.7 GM/DL (6.4-8.2)
[2019-10-26 18:19] VITALS: BP 145/77
[2019-10-26] MEDS ORDERED: CYCL5TAB PO (19:13)
[2019-10-26] MEDS ORDERED: LIDO5DIS41 TOP (19:13)
[2019-10-26] MEDS ORDERED: NYST1POW9 TOP (19:49)
--- NOTE | 2019-10-31 10:12 | REP ---
LIMITED SMALL BOWEL STUDY: HISTORY: Gastrografin instilled to assess for J-tube position. FINDINGS: KUB demonstrates the dilute Gastrografin administered through the J-tube opacifying multiple intake loops of jejunum in the left mid-abdomen. No extravasation is seen. IMPRESSION: The J-tube appears to be in good position. No extravasation. MTDD
== END 2019-10-26 20:25 | disposition home or self-care (01) ==
LOC: M ED 14:23
DX: K94.19 Other complications of enterostomy (principal); Y73.2 Prosthetic and other implants, materials and accessory gastroenterology and urology devices associated with adverse incidents; Z85.01 Personal history of malignant neoplasm of esophagus; Z79.899 Other long term (current) drug therapy; Z79.82 Long term (current) use of aspirin; Z79.84 Long term (current) use of oral hypoglycemic drugs
CPT/HCPCS: 36415; 74018; 80047; 80076; 83690; 85025; 99284; Q9963

== ENCOUNTER → 2019-11-19 | Outpatient (REF) | payer MEDICARE, OTHER ==
[~2019-11-19] MED LIST changes: +CYCL5TAB PO; +GABA-1171 PO; +LIDO5DIS41 TOP; +METO1TAB33 PO; +NYST1POW9 TOP
[2019-11-19 12:13] LABS: BASO % 0.4 % (0.0-1.0); EOS # 0.3 10^3/uL (0.0-0.5); EOS % 5.8 % (0.0-3.0); HEMATOCRIT 39.6 % (42.0-52.0); HEMOGLOBIN 12.4 g/dl (13.5-17.5); LYMPH # 0.6 10^3/uL (1.5-5.0); LYMPH % 13.1 % (24.0-44.0); MEAN CORPUSCULAR HEMOGLOBIN 28.4 pg (27.0-33.0); MEAN CORPUSCULAR HGB CONC 31.3 g/dl (32.0-36.5); MEAN CORPUSCULAR VOLUME 90.6 fl (80.0-96.0); MONO # 0.5 10^3/uL (0.0-0.8); MONO % 10.7 % (0.0-5.0); NEUTROPHILS # 3.1 10^3/uL (1.5-8.5); NEUTROPHILS % 69.8 % (36.0-66.0); PLATELET COUNT, AUTOMATED 216 10^3/uL (150-450); RED BLOOD COUNT 4.37 10^6/uL (4.30-6.10); WHITE BLOOD COUNT 4.5 10^3/uL (4.0-10.0)
[2019-11-19 12:46] LABS: HEMOGLOBIN A1c 6.2 %
[2019-11-19 12:50] LABS: ALBUMIN 3.1 GM/DL (3.2-5.2); ALT/SGPT 18 U/L (12-78); BILIRUBIN,TOTAL 0.4 MG/DL (0.2-1.0); BLOOD UREA NITROGEN 12 MG/DL (7-18); CALCIUM LEVEL 8.7 MG/DL (8.8-10.2); CARBON DIOXIDE LEVEL 30 MEQ/L (21-32); CHLORIDE LEVEL 106 MEQ/L (98-107); CHOLESTEROL LEVEL 113 MG/DL (<200); CHOLESTEROL RISK RATIO 2.404 (<5); CREATININE FOR GFR 0.45 MG/DL (0.70-1.30); GLOMERULAR FILTRATION RATE > 60.0 (>49); GLUCOSE, FASTING 111 MG/DL (70-100); HDL CHOLESTEROL 47 MG/DL (>40); LDL CHOLESTEROL 48 MG/DL (<100); NON-HDL-C 66 MG/DL; SODIUM LEVEL 140 MEQ/L (136-145); TOTAL PROTEIN 6.3 GM/DL (6.4-8.2); TRIGLYCERIDES LEVEL 91 MG/DL (<150)
[2019-11-19 13:42] LABS: MALB URINE SIEMENS 12.4 MG/L; MAU/CREAT RATIO 9.2 MCG/MG (0.0-30.0)
== END ==
LOC: M SHH 11:49
PROVIDERS: ATTEND Nurse Practitioner Family
DX: E11.69 Type 2 diabetes mellitus with other specified complication (principal)

== ENCOUNTER 2019-12-05 12:09 | Emergency (ER) | payer MEDICARE, OTHER ==
[~2019-12-05] VITALS: Ht 175.3 cm; Wt 80.8 kg
[~2019-12-05 12:09] MED LIST changes: -GABA-1171 PO; -METO1TAB33 PO
[2019-12-05] MEDS ORDERED: GABA-1171 PO (12:39)
[2019-12-05] MEDS ORDERED: METO1TAB33 PO (12:39)
[2019-12-05] MEDS ORDERED: NS 1,000 ML IV ONE (13:00)
--- NOTE | 2019-12-05 13:21 | REPVR ---
PROCEDURE INFORMATION: Exam: XR Chest, 1 View Exam date and time: 12/05/2019 1:02 PM Age: 64 years old Clinical indication: Other: Syncope; Additional info: Syncope/near-syncope TECHNIQUE: Imaging protocol: XR of the chest Views: 1 view. COMPARISON: CR PORTABLE CHEST X-RAY 07/27/2019 FINDINGS: Limitations: The lung bases and diaphragm are not in the field of view. Lungs: Thin vertical platelike scarring at the lateral right lung base is unchanged from 4 months ago. The visualized lungs are otherwise clear. Pulmonary vascularity is normal. Pleural space: No significant pleural effusion. No pneumothorax. Heart/Mediastinum: The cardiac silhouette is normal in size. The mediastinal contour is normal. Bones/joints: Anterior cervical diskectomy and fusion at C6-T1 using an anterior plate. No acute osseous abnormalities are identified. Soft tissues: A right chest Mediport is in good position with its tip in the SVC. IMPRESSION: 1. No acute thoracic abnormality. 2. Thin vertical platelike scarring at the lateral right lung base is unchanged from 4 months ago. The visualized lungs are otherwise clear. Electronically signed by: Brennen Russo On 12/05/2019 13:21:27 PM
[2019-12-05 13:32] LABS: BASO % 0.4 % (0.0-1.0); EOS # 0.2 10^3/uL (0.0-0.5); EOS % 3.6 % (0.0-3.0); HEMATOCRIT 39.7 % (42.0-52.0); HEMOGLOBIN 12.5 g/dl (13.5-17.5); LYMPH # 0.6 10^3/uL (1.5-5.0); LYMPH % 13.2 % (24.0-44.0); MEAN CORPUSCULAR HEMOGLOBIN 28.6 pg (27.0-33.0); MEAN CORPUSCULAR HGB CONC 31.5 g/dl (32.0-36.5); MEAN CORPUSCULAR VOLUME 90.8 fl (80.0-96.0); MONO # 0.5 10^3/uL (0.0-0.8); MONO % 11.1 % (0.0-5.0); NEUTROPHILS # 3.4 10^3/uL (1.5-8.5); NEUTROPHILS % 71.5 % (36.0-66.0); PLATELET COUNT, AUTOMATED 209 10^3/uL (150-450); RED BLOOD COUNT 4.37 10^6/uL (4.30-6.10); WHITE BLOOD COUNT 4.7 10^3/uL (4.0-10.0)
[2019-12-05 13:42] LABS: INR 0.99; PROTHROMBIN TIME 13.3 SECONDS (12.5-14.3)
[2019-12-05 14:19] LABS: BLOOD UREA NITROGEN 18 MG/DL (7-18); CARBON DIOXIDE LEVEL 31 MEQ/L (21-32); CHLORIDE LEVEL 106 MEQ/L (98-107); CK-MB VALUE MASS 1.6 NG/ML (<3.6); CPK CREATINE PHOSPHOKINASE 68 U/L (39-308); GLOMERULAR FILTRATION RATE > 60.0 (>49); GLUCOSE, FASTING 118 MG/DL (70-100); MB/CK RELATIVE INDEX 2.35 (< OR =4); POTASSIUM SERUM 4.1 MEQ/L (3.5-5.1); SODIUM LEVEL 143 MEQ/L (136-145); TROPONIN I < 0.02 NG/ML (< 0.10)
[2019-12-05 14:30] VITALS: BP 152/73
--- NOTE | 2019-12-05 20:38 | ECGEPIP ---
[facility] - ED Test Date: 2019-12-05 Pat Name: BERNADINE WADDELL Department: Room: - Gender: Male Bed Rubber: CORBIN : 1955 Requested By: RENETTA FIORE Order Number: [id number] Reading MD: Dulce Arora Measurements Intervals [place] Rate: 86 P: 75 OR: 169 QRS: 54 QRSD: 101 T: 52 QT: 340 QTc: 408 Interpretive Statements SINUS RHYTHM DECREASED RATE 07/27/19 Electronically Signed on 12-05-2019 20:38:10 EDT by Dulce Arora
== END 2019-12-05 14:54 | disposition home or self-care (01) ==
LOC: M ED 12:09
DX: R55 Syncope and collapse (principal); R05 Cough; Z85.01 Personal history of malignant neoplasm of esophagus; F17.200 Nicotine dependence, unspecified, uncomplicated; Z79.899 Other long term (current) drug therapy; Z79.82 Long term (current) use of aspirin; Z79.84 Long term (current) use of oral hypoglycemic drugs

== ENCOUNTER → 2020-02-19 | Outpatient (CLI) | payer MEDICARE ==
[~2020-02-19] MED LIST changes: +GABA-1171 PO; +METO1TAB33 PO
[2020-02-19 12:03] LABS: BASO % 0.6 % (0.0-1.0); EOS # 0.1 10^3/uL (0.0-0.5); EOS % 1.9 % (0.0-3.0); HEMATOCRIT 39.1 % (42.0-52.0); HEMOGLOBIN 12.7 g/dl (13.5-17.5); LYMPH # 0.7 10^3/uL (1.5-5.0); LYMPH % 13.5 % (24.0-44.0); MEAN CORPUSCULAR HEMOGLOBIN 29.4 pg (27.0-33.0); MEAN CORPUSCULAR HGB CONC 32.5 g/dl (32.0-36.5); MEAN CORPUSCULAR VOLUME 90.5 fl (80.0-96.0); MONO # 0.4 10^3/uL (0.0-0.8); MONO % 7.7 % (0.0-5.0); NEUTROPHILS # 4.1 10^3/uL (1.5-8.5); NEUTROPHILS % 76.1 % (36.0-66.0); PLATELET COUNT, AUTOMATED 263 10^3/uL (150-450); RED BLOOD COUNT 4.32 10^6/uL (4.30-6.10); WHITE BLOOD COUNT 5.4 10^3/uL (4.0-10.0)
[2020-02-19 12:28] LABS: PERCENT SATURATION 19.2 % (19.7-50.0)
== END ==
LOC: M LAB 11:20
PROVIDERS: ATTEND Nurse Practitioner Family
DX: D64.9 Anemia, unspecified (principal)

== ENCOUNTER → 2020-03-25 | Outpatient (CLI) | payer MEDICARE ==
[~2020-03-25] MED LIST changes: +ESCI10TA16 PO; -ESCI10TA2 PO
== END ==
LOC: M LABSMTC 12:58
PROVIDERS: ATTEND Nurse Practitioner
DX: Z01.812 Encounter for preprocedural laboratory examination (principal); C15.9 Malignant neoplasm of esophagus, unspecified; Z20.822 Contact with and (suspected) exposure to COVID-19

== ENCOUNTER → 2020-12-17 | Outpatient (CLI) | payer MEDICARE ==
[~2020-12-17] MED LIST changes: +GABA-283 PO; -GABA-845 PO; +LIDO1CRE42 TOP; -LIDO2.5C15 TOP
[2020-12-17 16:17] LABS: ALBUMIN 3.3 GM/DL (3.2-5.2); ALT/SGPT 24 U/L (12-78); BILIRUBIN,TOTAL 0.3 MG/DL (0.2-1.0); BLOOD UREA NITROGEN 20 MG/DL (7-18); CARBON DIOXIDE LEVEL 33 MEQ/L (21-32); CHLORIDE LEVEL 107 MEQ/L (98-107); CHOLESTEROL LEVEL 118 MG/DL (<200); CHOLESTEROL RISK RATIO 2.313 (<5); GLOMERULAR FILTRATION RATE > 60.0 (>49); GLUCOSE, FASTING 108 MG/DL (70-100); HDL CHOLESTEROL 51 MG/DL (>40); LDL CHOLESTEROL 53 MG/DL (<100); NON-HDL-C 67 MG/DL; POTASSIUM SERUM 5.1 MEQ/L (3.5-5.1); SODIUM LEVEL 141 MEQ/L (136-145); TOTAL PROTEIN 6.4 GM/DL (6.4-8.2); TRIGLYCERIDES LEVEL 71 MG/DL (<150)
[2020-12-17 16:25] LABS: MALB URINE SIEMENS 15.4 MG/L; MAU/CREAT RATIO 11.8 MCG/MG (0.0-30.0)
[2020-12-17 16:55] LABS: HEMOGLOBIN A1c 5.7 %
== END ==
LOC: M PLALAB 13:48
PROVIDERS: ATTEND Nurse Practitioner Family
DX: E78.2 Mixed hyperlipidemia (principal); E11.69 Type 2 diabetes mellitus with other specified complication

== ENCOUNTER → 2021-05-06 | Outpatient (CLI) | payer MEDICARE ==
[~2021-05-06] MED LIST changes: -CEFD1CAP8 PO; +CEFD300C41 PO; -PROC10TA4 PO; +PROC10TA5 PO
[2021-05-06 15:23] LABS: BASO % 0.6 % (0.0-1.0); EOS # 0.3 10^3/uL (0.0-0.5); HEMATOCRIT 45.2 % (42.0-52.0); LYMPH # 0.8 10^3/uL (1.5-5.0); LYMPH % 13.1 % (24.0-44.0); MEAN CORPUSCULAR HEMOGLOBIN 32.8 pg (27.0-33.0); MEAN CORPUSCULAR HGB CONC 33.2 g/dl (32.0-36.5); MEAN CORPUSCULAR VOLUME 98.7 fl (80.0-96.0); MONO # 0.7 10^3/uL (0.0-0.8); MONO % 10.7 % (2.0-8.0); NEUTROPHILS # 4.6 10^3/uL (1.5-8.5); NEUTROPHILS % 71.3 % (36.0-66.0); PLATELET COUNT, AUTOMATED 223 10^3/uL (150-450); RED BLOOD COUNT 4.58 10^6/uL (4.30-6.10); WHITE BLOOD COUNT 6.4 10^3/uL (4.0-10.0)
[2021-05-06 15:50] LABS: ALBUMIN 3.7 GM/DL (3.2-5.2); ALT/SGPT 37 U/L (12-78); BILIRUBIN,TOTAL 0.3 MG/DL (0.2-1.0); BLOOD UREA NITROGEN 21 MG/DL (7-18); CALCIUM LEVEL 9.7 MG/DL (8.8-10.2); CARBON DIOXIDE LEVEL 34 MEQ/L (21-32); CHLORIDE LEVEL 106 MEQ/L (98-107); CREATININE FOR GFR 0.92 MG/DL (0.70-1.30); GLOMERULAR FILTRATION RATE > 60.0 (>49); GLUCOSE, FASTING 78 MG/DL (70-100); POTASSIUM SERUM 4.6 MEQ/L (3.5-5.1); SODIUM LEVEL 141 MEQ/L (136-145); TOTAL PROTEIN 6.9 GM/DL (6.4-8.2)
[2021-05-06 16:46] LABS: HEMOGLOBIN A1c 5.8 %
== END ==
LOC: M PLALAB 12:27
PROVIDERS: ATTEND Nurse Practitioner Family
DX: E11.69 Type 2 diabetes mellitus with other specified complication (principal); E87.1 Hypo-osmolality and hyponatremia

== ENCOUNTER → 2021-08-16 | Outpatient (CLI) | payer MEDICARE ==
[~2021-08-16] MED LIST changes: +ALLE180T33 PO; +CENT1TAB2 PO; +IBUP200C25 PO; +LEXA1TAB2 PO; +MIRT-11 PO; +VITA-243 PO
== END ==
LOC: M PLAIMG 14:59
PROVIDERS: ATTEND Nurse Practitioner Family
DX: R91.8 Other nonspecific abnormal finding of lung field (principal); J84.10 Pulmonary fibrosis, unspecified

== ENCOUNTER → 2021-10-25 | Outpatient (CLI) | payer MEDICARE ==
[2021-10-25 18:17] LABS: HEMOGLOBIN A1c 6.4 %
[2021-10-25 18:33] LABS: ALBUMIN 3.5 GM/DL (3.2-5.2); ALT/SGPT 24 U/L (12-78); BILIRUBIN,TOTAL 0.4 MG/DL (0.2-1.0); BLOOD UREA NITROGEN 16 MG/DL (7-18); CARBON DIOXIDE LEVEL 31 MEQ/L (21-32); CHLORIDE LEVEL 102 MEQ/L (98-107); CHOLESTEROL LEVEL 110 MG/DL (<200); CREATININE FOR GFR 0.83 MG/DL (0.70-1.30); GLOMERULAR FILTRATION RATE > 60.0 (>49); GLUCOSE, FASTING 226 MG/DL (70-100); HDL CHOLESTEROL 55 MG/DL (>40); LDL CHOLESTEROL 38 MG/DL (<100); NON-HDL-C 55 MG/DL; POTASSIUM SERUM 4.4 MEQ/L (3.5-5.1); SODIUM LEVEL 138 MEQ/L (136-145); TOTAL PROTEIN 6.5 GM/DL (6.4-8.2); TRIGLYCERIDES LEVEL 84 MG/DL (<150)
[2021-10-25 18:49] LABS: MALB URINE SIEMENS 28.2 MG/L; MAU/CREAT RATIO 9.7 MCG/MG (0.0-30.0)
== END ==
LOC: M PLALAB 15:28
PROVIDERS: ATTEND Nurse Practitioner Family
DX: E11.69 Type 2 diabetes mellitus with other specified complication (principal)

== ENCOUNTER → 2021-11-11 | Outpatient (CLI) | payer MEDICARE | LOC: M RAD 08:11 | PROVIDERS: ATTEND Nurse Practitioner Family | DX: Z87.891 Personal history of nicotine dependence (principal) ==

== ENCOUNTER → 2022-05-08 | Outpatient (CLI) | payer MEDICARE ==
[~2022-05-08] MED LIST changes: -OXYC-403 PO; +OXYC-673 PO
[2022-05-08 15:53] LABS: BLOOD UREA NITROGEN 27 MG/DL (9-23); CALCIUM LEVEL 9.1 MG/DL (8.3-10.6); CARBON DIOXIDE LEVEL 32 MMOL/L (20-31); CHLORIDE LEVEL 103 MMOL/L (98-107); CREATININE FOR GFR 0.73 MG/DL (0.70-1.30); GLOMERULAR FILTRATION RATE > 60.0 (>49); GLUCOSE, FASTING 101 MG/DL (74-106); POTASSIUM SERUM 4.7 MMOL/L (3.5-5.1); SODIUM LEVEL 143 MMOL/L (136-145)
[2022-05-08 16:03] LABS: HEMOGLOBIN A1c 6.2 % (4.0-6.0)
== END ==
LOC: M PLALAB 12:54
PROVIDERS: ATTEND Nurse Practitioner Family
DX: E11.69 Type 2 diabetes mellitus with other specified complication (principal)

== ENCOUNTER → 2022-11-08 | Outpatient (CLI) | payer MEDICARE, MEDICAID ==
[~2022-11-08] MED LIST changes: -GABA-283 PO; +GABA-284 PO; -LIDO1CRE42 TOP; +LIDO30CR18 TOP
[2022-11-08 18:40] LABS: CREATININE, URINE 244.6 MG/DL
[2022-11-08 18:42] LABS: ALBUMIN 3.3 G/DL (3.2-5.2); ALKALINE PHOSPHATASE 98 U/L (46-116); ALT/SGPT 21 U/L (7.0-40); AST/SGOT 11 U/L (<34); BILIRUBIN,TOTAL 0.3 MG/DL (0.3-1.2); BLOOD UREA NITROGEN 24 MG/DL (9-23); CALCIUM LEVEL 8.8 MG/DL (8.3-10.6); CARBON DIOXIDE LEVEL 31 MMOL/L (20-31); CHLORIDE LEVEL 107 MMOL/L (98-107); CHOLESTEROL LEVEL 116 MG/DL (<200); CREATININE FOR GFR 0.79 MG/DL (0.70-1.30); GLOMERULAR FILTRATION RATE > 60.0 (>49); GLUCOSE, FASTING 110 MG/DL (74-106); HDL CHOLESTEROL 48.3 MG/DL (>40); LDL CHOLESTEROL 49.9 MG/DL (<100); NON-HDL-C 67.7 MG/DL; POTASSIUM SERUM 4.6 MMOL/L (3.5-5.1); SODIUM LEVEL 143 MMOL/L (136-145); TOTAL PROTEIN 6.1 G/DL (5.7-8.2); TRIGLYCERIDES LEVEL 89 MG/DL (<150)
== END ==
LOC: M PLALAB 14:11
PROVIDERS: ATTEND Nurse Practitioner Family
DX: E11.69 Type 2 diabetes mellitus with other specified complication (principal)

== ENCOUNTER → 2023-05-02 | Outpatient (CLI) | payer MEDICARE, MEDICAID ==
[~2023-05-02] MED LIST changes: +CEFD1CAP9 PO; -CEFD300C41 PO
== END ==
LOC: M RAD 16:47
PROVIDERS: ATTEND Nurse Practitioner Family
DX: M51.16 Intervertebral disc disorders with radiculopathy, lumbar region (principal)

== ENCOUNTER → 2023-08-30 | Outpatient (CLI) | payer MEDICARE, MEDICAID ==
[~2023-08-30] MED LIST changes: +ONDA-282 PO; -ONDA4TAB6 PO
== END ==
LOC: M PLARAD 14:58
PROVIDERS: ATTEND Nurse Practitioner Family
DX: M21.371 Foot drop, right foot (principal)

== ENCOUNTER → 2023-11-09 | Outpatient (CLI) | payer MEDICARE, MEDICAID ==
[2023-11-09 16:01] LABS: CREATININE, URINE 127.4 MG/DL
[2023-11-09 16:02] LABS: ALBUMIN 3.6 G/DL (3.2-5.2); ALKALINE PHOSPHATASE 87 U/L (46-116); ALT/SGPT 21 U/L (7.0-40); AST/SGOT 11 U/L (<34); BILIRUBIN,TOTAL 0.5 MG/DL (0.3-1.2); BLOOD UREA NITROGEN 15 MG/DL (9-23); CARBON DIOXIDE LEVEL 29 MMOL/L (20-31); CHLORIDE LEVEL 101 MMOL/L (98-107); CHOLESTEROL LEVEL 118 MG/DL (<200); CHOLESTEROL RISK RATIO 2.03 (<5); CREATININE FOR GFR 0.74 MG/DL (0.70-1.30); GLOMERULAR FILTRATION RATE > 60.0 (>49); GLUCOSE, FASTING 95 MG/DL (74-106); HDL CHOLESTEROL 57.9 MG/DL (>40); LDL CHOLESTEROL 49.9 MG/DL (<100); MALB URINE SIEMENS < 3.0 MG/L; MAU/CREAT RATIO 2.3 MCG/MG (0.0-30.0); NON-HDL-C 60.1 MG/DL; POTASSIUM SERUM 4.4 MMOL/L (3.5-5.1); SODIUM LEVEL 134 MMOL/L (136-145); TOTAL PROTEIN 6.5 G/DL (5.7-8.2); TRIGLYCERIDES LEVEL 51 MG/DL (<150)
[2023-11-09 16:08] LABS: HEMOGLOBIN A1c 5.9 % (4.0-6.0)
== END ==
LOC: M PLALAB 13:51
PROVIDERS: ATTEND Nurse Practitioner Family
DX: E11.69 Type 2 diabetes mellitus with other specified complication (principal); E78.2 Mixed hyperlipidemia

== ENCOUNTER → 2024-11-21 | Outpatient (CLI) | payer MEDICARE, MEDICAID ==
[~2024-11-21] MED LIST changes: -CYCL5TAB PO; +CYCL5TAB4 PO; -DRON2.5C11 PO; +DRON2.5C17 PO; +LIDO1ADH93 TOP; -LIDO5DIS41 TOP; +NYST1POW3 TOP; -NYST1POW9 TOP
[2024-11-21 14:02] LABS: ALT/SGPT 14 U/L (7.0-40); AST/SGOT 14 U/L (<34); CALCIUM LEVEL 8.7 MG/DL (8.3-10.6); CARBON DIOXIDE LEVEL 33 MMOL/L (20-31); CHLORIDE LEVEL 98 MMOL/L (98-107); CHOLESTEROL LEVEL 112 MG/DL (<200); CHOLESTEROL RISK RATIO 2.47 (<5); CREATININE FOR GFR 0.65 MG/DL (0.70-1.30); GLOMERULAR FILTRATION RATE > 90.0 (>42); LDL CHOLESTEROL 53.6 MG/DL (<100); NON-HDL-C 66.8 MG/DL; POTASSIUM SERUM 4.4 MMOL/L (3.5-5.1); SODIUM LEVEL 135 MMOL/L (136-145); TRIGLYCERIDES LEVEL 66 MG/DL (<150)
[2024-11-21 14:18] LABS: CREATININE, URINE 135.1 MG/DL
[2024-11-21 14:19] LABS: MALB URINE SIEMENS 4.0 MG/L; MAU/CREAT RATIO 2.9 MCG/MG (0.0-30.0)
[2024-11-21 14:22] LABS: ESTIMATED AVERAGE GLUCOSE 134.0 MG/DL (60-110)
== END ==
LOC: M PLALAB 10:43
PROVIDERS: ATTEND Nurse Practitioner Family
DX: E11.69 Type 2 diabetes mellitus with other specified complication (principal); E78.2 Mixed hyperlipidemia

== ENCOUNTER 2024-12-30 23:02 | Inpatient (IN) | payer MEDICARE, MEDICAID ==
[~2024-12-30] VITALS: Ht 177.8 cm; Wt 61.8 kg
[2024-12-30] MEDS: IPRATROPIUM 0.5 MG/ALBUTEROL 2.5 MG INH SOL UD 3 ML NEB ONE (23:44)
[2024-12-31 00:18] LABS: ALT/SGPT 33 U/L (7.0-40); AST/SGOT 35 U/L (<34); CALCIUM LEVEL 8.3 MG/DL (8.3-10.6); CARBON DIOXIDE LEVEL 32 MMOL/L (20-31); CHLORIDE LEVEL 87 MMOL/L (98-107); CREATININE FOR GFR 0.47 MG/DL (0.70-1.30); GLOMERULAR FILTRATION RATE > 90.0 (>42); POTASSIUM SERUM 4.0 MMOL/L (3.5-5.1); SODIUM LEVEL 126 MMOL/L (136-145)
[2024-12-31 00:20] LABS: THYROXINE (T4) 10.0 UG/DL (4.5-10.9)
[2024-12-31 00:23] LABS: BASO # 0.0 10^3/uL (0.0-0.2); BASO % 0.2 % (0.0-1.0); EOS # 0.0 10^3/uL (0.0-0.5); EOS % 0.2 % (0.0-3.0); LYMPH # 0.7 10^3/uL (1.5-5.0); LYMPH % 4.9 % (24.0-44.0); MONO # 1.0 10^3/uL (0.0-0.8); MONO % 7.1 % (2.0-8.0); NEUTROPHILS # 11.7 10^3/uL (1.5-8.5); NEUTROPHILS % 87.1 % (36.0-66.0); PLATELET COUNT, AUTOMATED 494 10^3/uL (150-450)
[2024-12-31] MEDS ORDERED: ISOVUE-370 76% 100 ML VIAL As Ordered ONE (00:24)
[2024-12-31] MEDS: ALBUTEROL SULFATE 2.5 MG/0.5 ML INH CONCENTRATE NEB SOLN INH SCH (02:00)
[2024-12-31] MEDS: PIPERACILLIN/TAZOBACTAM SOD 4.5 GM in DEXTROSE 5% (D5W) ADV/MINI-BAG 50 ML IV ONE (02:09)
[2024-12-31] MEDS ORDERED: ACETAMINOPHEN 325 MG TAB PO PRN (02:45)
[2024-12-31] MEDS ORDERED: MOM 30 ML SUSPENSION UDC PO PRN (02:45)
[2024-12-31] MEDS ORDERED: DEXTROSE 50% 50 ML SYRINGE IV PRN (02:45)
[2024-12-31] MEDS ORDERED: GLUCAGON INJ 1 MG VIAL SC PRN (02:45)
[2024-12-31] MEDS ORDERED: MAALOX 30 ML SUSP *UDC PO PRN (02:45)
[2024-12-31] MEDS ORDERED: GLUCOSE 4 GM CHEW PO PRN (02:45)
[2024-12-31] MEDS ORDERED: VANCOMYCIN HCL 1,000 MG in IV FLUID PLACE HOLDER 1 EA IV SCH (02:45)
[2024-12-31] MEDS: NS (Normal Saline) 0.9% 1,000 ML IV SCH (02:50)
[2024-12-31] MEDS: VANCOMYCIN HCL 1,250 MG, VIAL MATE ADAPTER 1 EACH in NS 250 ML IV ONE (05:39)
[2024-12-31 06:48] LABS: PLATELET COUNT, AUTOMATED 451 10^3/uL (150-450)
[2024-12-31 07:28] LABS: ALT/SGPT 29 U/L (7.0-40); AST/SGOT 27 U/L (<34); CALCIUM LEVEL 8.4 MG/DL (8.3-10.6); CARBON DIOXIDE LEVEL 29 MMOL/L (20-31); CHLORIDE LEVEL 90 MMOL/L (98-107); CREATININE FOR GFR 0.43 MG/DL (0.70-1.30); GLOMERULAR FILTRATION RATE > 90.0 (>42); MAGNESIUM LEVEL 1.7 MG/DL (1.8-2.4); POTASSIUM SERUM 4.7 MMOL/L (3.5-5.1); SODIUM LEVEL 129 MMOL/L (136-145)
[2024-12-31] MEDS: INSULIN LISPRO (NovoLOG) PER UNIT SC SCH (07:30)
[2024-12-31] MEDS: PIPERACILLIN/TAZOBACTAM SOD 4.5 GM in DEXTROSE 5% (D5W) ADV/MINI-BAG 50 ML IV SCH (08:51)
[2024-12-31] MEDS: guaiFENesin ER TABLET 600 MG TAB PO SCH (08:52)
[2024-12-31] MEDS: DOCUSATE SODIUM 100 MG CAPSULE PO SCH (09:00)
[2024-12-31] MEDS ORDERED: CETI-24 PO (09:16)
[2024-12-31] MEDS ORDERED: FLUT1BLS8 INH (09:16)
[2024-12-31] MEDS ORDERED: HOME MED LIST COMPLETE! XX SCH (09:30)
[2024-12-31] MEDS: PANTOPRAZOLE 40MG VIAL IV SCH (10:48)
[2024-12-31] MEDS: HEPARIN SOD 5000 UNITS/ML 1 ML VIAL/SYRINGE SC SCH (10:49)
[2024-12-31] MEDS: VANCOMYCIN HCL 750 MG, VIAL MATE ADAPTER 1 EACH in NS 250 ML IV SCH (13:48)
[2024-12-31 14:30] VITALS: BP 129/75; TEMP 97.6; O2SAT 96
[2024-12-31 15:00] VITALS: O2SAT 95
[2024-12-31 20:15] VITALS: BP 108/58; TEMP 97.9; O2SAT 99
[2025-01-01] MEDS ORDERED: UNRESOLVED CLARIFICATION ENTRY XX SCH (00:01)
[2025-01-01 04:00] VITALS: BP 109/58; TEMP 97.7; O2SAT 94
[2025-01-01 06:50] LABS: PLATELET COUNT, AUTOMATED 380 10^3/uL (150-450)
[2025-01-01 07:22] LABS: CALCIUM LEVEL 7.9 MG/DL (8.3-10.6); CARBON DIOXIDE LEVEL 27 MMOL/L (20-31); CHLORIDE LEVEL 94 MMOL/L (98-107); CREATININE FOR GFR 0.46 MG/DL (0.70-1.30); GLOMERULAR FILTRATION RATE > 90.0 (>42); POTASSIUM SERUM 3.5 MMOL/L (3.5-5.1); SODIUM LEVEL 131 MMOL/L (136-145)
[2025-01-01 09:00] VITALS: O2SAT 95
[2025-01-01 12:00] VITALS: BP 109/58; TEMP 97.3; O2SAT 98
[2025-01-01 20:00] VITALS: BP 108/76; TEMP 97.4; O2SAT 98
[2025-01-02 04:17] VITALS: BP 102/58; TEMP 97.7; O2SAT 93
[2025-01-02 06:28] LABS: PLATELET COUNT, AUTOMATED 413 10^3/uL (150-450)
[2025-01-02 06:48] LABS: CALCIUM LEVEL 7.3 MG/DL (8.3-10.6); CARBON DIOXIDE LEVEL 28 MMOL/L (20-31); CHLORIDE LEVEL 95 MMOL/L (98-107); CREATININE FOR GFR 0.56 MG/DL (0.70-1.30); GLOMERULAR FILTRATION RATE > 90.0 (>42); POTASSIUM SERUM 3.5 MMOL/L (3.5-5.1); SODIUM LEVEL 131 MMOL/L (136-145)
[2025-01-02 12:00] VITALS: BP 110/60; TEMP 97.9; O2SAT 98
[2025-01-02] MEDS ORDERED: LEVO75TAB PO (14:06)
[2025-01-02] MEDS ORDERED: METR-265 PO (14:06)
[2025-01-04 20:27] LABS: URINE STREP PNEUMONIAE ANTIGEN Not Detected (Not Detected)
== END 2025-01-02 14:40 | disposition home or self-care (01) | DRG 177 ==
LOC: M ED 23:02 → M ED INP 12-31 02:42 → M MSPAV 12-31 14:35
PROVIDERS: ADMIT Student in an Organized Health Care Education/Training Program; ATTEND Student in an Organized Health Care Education/Training Program
DX: J85.0 Gangrene and necrosis of lung (principal); J15.4 Pneumonia due to other streptococci; E87.1 Hypo-osmolality and hyponatremia; I10 Essential (primary) hypertension; E78.5 Hyperlipidemia, unspecified; J44.9 Chronic obstructive pulmonary disease, unspecified; J43.9 Emphysema, unspecified; M19.90 Unspecified osteoarthritis, unspecified site; F32.A Depression, unspecified; F41.9 Anxiety disorder, unspecified; Z85.01 Personal history of malignant neoplasm of esophagus; F17.210 Nicotine dependence, cigarettes, uncomplicated; E83.42 Hypomagnesemia; D64.9 Anemia, unspecified; D72.829 Elevated white blood cell count, unspecified; R53.1 Weakness; R63.4 Abnormal weight loss; E11.9 Type 2 diabetes mellitus without complications; Z79.84 Long term (current) use of oral hypoglycemic drugs; Z98.1 Arthrodesis status; Z79.82 Long term (current) use of aspirin; Z79.899 Other long term (current) drug therapy

== ENCOUNTER 2025-01-22 15:27 | Inpatient (IN) | payer MEDICARE, MEDICAID ==
[~2025-01-22] VITALS: Ht 172.7 cm; Wt 63.9 kg
[~2025-01-22 15:27] MED LIST changes: +CETI-24 PO; +FLUT1BLS8 INH; +LEVO75TAB PO; +METR-265 PO
[2025-01-22 15:55] LABS: VENOUS BASE EXCESS -6.2 (-2.0-2.0); VENOUS HCO3 20.7 MMOL/L (23.0-27.0); VENOUS O2 SATURATION 65.4 % (60.0-80.0); VENOUS PARTIAL PRESSURE CO2 46.1 mmHg (38.0-50.0); VENOUS PARTIAL PRESSURE O2 35.8 mmHg (30.0-50.0); VENOUS PH 7.270 UNITS (7.330-7.430); VENOUS STANDARD HCO3 18.7 MMOL/L; VENOUS TOTAL CO2 22.1 MMOL/L (24.0-28.0)
[2025-01-22 16:08] LABS: BASO # 0.0 10^3/uL (0.0-0.2); BASO % 0.3 % (0.0-1.0); EOS # 0.0 10^3/uL (0.0-0.5); EOS % 0.2 % (0.0-3.0); LYMPH # 0.8 10^3/uL (1.5-5.0); LYMPH % 7.9 % (24.0-44.0); MONO # 0.7 10^3/uL (0.0-0.8); MONO % 7.6 % (2.0-8.0); NEUTROPHILS # 8.0 10^3/uL (1.5-8.5); NEUTROPHILS % 83.6 % (36.0-66.0); PLATELET COUNT, AUTOMATED 314 10^3/uL (150-450)
[2025-01-22] MEDS: IPRATROPIUM 0.5 MG/ALBUTEROL 2.5 MG INH SOL UD 3 ML NEB ONE (16:11)
[2025-01-22 16:27] LABS: ALT/SGPT 13 U/L (7.0-40); AST/SGOT 20 U/L (<34); CALCIUM LEVEL 8.2 MG/DL (8.3-10.6); CARBON DIOXIDE LEVEL 21 MMOL/L (20-31); CHLORIDE LEVEL 100 MMOL/L (98-107); CK-MB VALUE MASS 3.3 NG/ML (<3.6); CREATININE FOR GFR 0.89 MG/DL (0.70-1.30); GLOMERULAR FILTRATION RATE > 90.0 (>42); POTASSIUM SERUM 4.1 MMOL/L (3.5-5.1); SODIUM LEVEL 136 MMOL/L (136-145)
[2025-01-22] MEDS ORDERED: ISOVUE-370 76% 100 ML VIAL As Ordered ONE (16:27)
[2025-01-22 16:30] LABS: THYROXINE (T4) 7.4 UG/DL (4.5-10.9)
[2025-01-22 16:42] LABS: CPK CREATINE PHOSPHOKINASE 33 U/L (46-171); MB/CK RELATIVE INDEX 10.00 (< OR =4)
[2025-01-22] MEDS: NS (Normal Saline) 0.9% 1,000 ML IV ONE ×2 (17:26→18:20)
[2025-01-22 17:57] LABS: CK-MB VALUE MASS 3.3 NG/ML (<3.6); CPK CREATINE PHOSPHOKINASE 45.0 U/L (46-171); MB/CK RELATIVE INDEX 7.33 (< OR =4)
[2025-01-22] MEDS: INSULIN LISPRO (NovoLOG) PER UNIT SC SCH (18:00)
[2025-01-22] MEDS ORDERED: ACETAMINOPHEN 325 MG TAB PO PRN (18:50)
[2025-01-22] MEDS ORDERED: LEVO1TAB40 PO (18:53)
[2025-01-22] MEDS ORDERED: HOME MED LIST COMPLETE! XX SCH (18:55)
[2025-01-22] MEDS ORDERED: DEXTROSE 50% 50 ML SYRINGE IV PRN (19:50)
[2025-01-22] MEDS ORDERED: GLUCOSE 4 GM CHEW PO PRN (19:50)
[2025-01-22] MEDS ORDERED: GLUCAGON INJ 1 MG VIAL SC PRN (19:50)
[2025-01-22] MEDS: SYMBICORT 160/4.5MCG INHALER 6GM INH SCH (20:00)
[2025-01-22] MEDS: IPRATROPIUM 0.5 MG/ALBUTEROL 2.5 MG INH SOL UD 3 ML NEB SCH (20:42)
[2025-01-22] MEDS: D5W/0.45% SODIUM CHLORIDE 1,000 ML IV SCH (21:23)
[2025-01-22] MEDS: ESCITALOPRAM OXALATE 10 MG TABLET PO SCH (21:48)
[2025-01-23] VITALS (8 sets, daily range): BP systolic 88–120; BP diastolic 50–64; TEMP 97.5–99; O2SAT 93–96
[2025-01-23] MEDS: NS (Normal Saline) 0.9% 1,000 ML IV SCH (03:05)
[2025-01-23 07:30] LABS: BASO # 0.0 10^3/uL (0.0-0.2); BASO % 0.2 % (0.0-1.0); EOS # 0.0 10^3/uL (0.0-0.5); EOS % 0.2 % (0.0-3.0); LYMPH # 0.6 10^3/uL (1.5-5.0); LYMPH % 12.0 % (24.0-44.0); MONO # 0.5 10^3/uL (0.0-0.8); MONO % 9.2 % (2.0-8.0); NEUTROPHILS # 4.2 10^3/uL (1.5-8.5); NEUTROPHILS % 78.0 % (36.0-66.0); PLATELET COUNT, AUTOMATED 223 10^3/uL (150-450)
[2025-01-23 07:51] LABS: ALT/SGPT 10 U/L (7.0-40); AST/SGOT 15 U/L (<34); CALCIUM LEVEL 7.6 MG/DL (8.3-10.6); CARBON DIOXIDE LEVEL 21 MMOL/L (20-31); CHLORIDE LEVEL 104 MMOL/L (98-107); CREATININE FOR GFR 0.82 MG/DL (0.70-1.30); GLOMERULAR FILTRATION RATE > 90.0 (>42); MAGNESIUM LEVEL 1.5 MG/DL (1.8-2.4); POTASSIUM SERUM 3.4 MMOL/L (3.5-5.1); SODIUM LEVEL 137 MMOL/L (136-145)
[2025-01-23] MEDS: TIOTROPIUM BROM 2.5MCG/ACTUATION 4GM INH INH SCH (09:10)
[2025-01-23] MEDS: FERROUS SULFATE 325 MG TAB PO SCH (09:27)
[2025-01-23] MEDS: ASPIRIN 81 MG ENTERIC TABLET PO SCH (09:27)
[2025-01-23] MEDS: ATORVASTATIN 20 MG TAB PO SCH (09:27)
[2025-01-23] MEDS: PANTOPRAZOLE 40MG VIAL IV SCH (09:27)
[2025-01-23] MEDS: MULTIVITAMINS/MINERALS THERAP 1 TAB PO SCH (09:27)
[2025-01-23] MEDS: MAG SULF 1GM/100ML (MAG RUN) 1 GM in IV 1 EA IV ONE (09:29)
[2025-01-23] MEDS: HEPARIN SOD 5000 UNITS/ML 1 ML VIAL/SYRINGE SC SCH (09:29)
[2025-01-23] MEDS: POTASSIUM CHLORIDE 10% LIQ 20MEQ/15ML UDC PO ONE (09:37)
[2025-01-23] MEDS ORDERED: VARIBAR NECTAR 40% w/v 240ML SUSP BTL As Ordered ONE (13:13)
[2025-01-23] MEDS ORDERED: E-Z-PAQUE 96% w/w SUSP 176 GM BTL As Ordered ONE (13:13)
[2025-01-23] MEDS ORDERED: BARIUM SULFATE 700 MG TABLET As Ordered ONE (13:13)
[2025-01-23] MEDS ORDERED: VARIBAR PUDDING 40% w/v 230ML TUBE As Ordered ONE (13:13)
[2025-01-23] MEDS: INSULIN LISPRO (NovoLOG) PER UNIT SC SCH (18:27)
[2025-01-23] MEDS: cefTRIAXone SOD 2 GM in DEXTROSE 5% (D5W) ADV/MINI-BAG 50 ML IV SCH (20:14)
[2025-01-24] VITALS (30 sets, daily range): BP systolic 108–167; BP diastolic 62–93; TEMP 97.9–98.5; O2SAT 94–99
[2025-01-24 06:33] LABS: BASO # 0.0 10^3/uL (0.0-0.2); BASO % 0.2 % (0.0-1.0); EOS # 0.0 10^3/uL (0.0-0.5); EOS % 0.0 % (0.0-3.0); LYMPH # 0.3 10^3/uL (1.5-5.0); LYMPH % 5.9 % (24.0-44.0); MONO # 0.2 10^3/uL (0.0-0.8); MONO % 3.8 % (2.0-8.0); NEUTROPHILS # 4.9 10^3/uL (1.5-8.5); NEUTROPHILS % 89.6 % (36.0-66.0); PLATELET COUNT, AUTOMATED 220 10^3/uL (150-450)
[2025-01-24 07:02] LABS: ALT/SGPT 14 U/L (7.0-40); AST/SGOT 18 U/L (<34); CALCIUM LEVEL 7.8 MG/DL (8.3-10.6); CARBON DIOXIDE LEVEL 24 MMOL/L (20-31); CHLORIDE LEVEL 105 MMOL/L (98-107); CREATININE FOR GFR 0.69 MG/DL (0.70-1.30); GLOMERULAR FILTRATION RATE > 90.0 (>42); MAGNESIUM LEVEL 1.6 MG/DL (1.8-2.4); POTASSIUM SERUM 4.2 MMOL/L (3.5-5.1); SODIUM LEVEL 136 MMOL/L (136-145)
[2025-01-24] MEDS: predniSONE 20 MG TAB PO SCH (10:06)
[2025-01-24] MEDS: MAG SULF 1GM/100ML (MAG RUN) 1 GM in IV 1 EA IV SCH (12:04)
[2025-01-24] MEDS: DIGOXIN INJ 0.5 MG/2 ML AMP IV ONE ×2 (13:06→18:43)
[2025-01-24] MEDS: APIXABAN 5 MG TAB PO SCH (20:09)
[2025-01-25] VITALS (25 sets, daily range): BP systolic 120–136; BP diastolic 71–82; TEMP 97.3–98.1; O2SAT 93–99
[2025-01-25] MEDS: DIGOXIN INJ 0.5 MG/2 ML AMP IV ONE (00:32)
[2025-01-25 08:55] LABS: PLATELET COUNT, AUTOMATED 224 10^3/uL (150-450)
[2025-01-25 09:24] LABS: ALT/SGPT 11 U/L (7.0-40); AST/SGOT 23 U/L (<34); CALCIUM LEVEL 7.8 MG/DL (8.3-10.6); CARBON DIOXIDE LEVEL 28 MMOL/L (20-31); CHLORIDE LEVEL 98 MMOL/L (98-107); CREATININE FOR GFR 0.63 MG/DL (0.70-1.30); GLOMERULAR FILTRATION RATE > 90.0 (>42); MAGNESIUM LEVEL 1.7 MG/DL (1.8-2.4); POTASSIUM SERUM 3.9 MMOL/L (3.5-5.1); SODIUM LEVEL 132 MMOL/L (136-145)
[2025-01-25] MEDS: DIGOXIN 0.25 MG TAB PO SCH (09:45)
[2025-01-25] MEDS: MOM 30 ML SUSPENSION UDC PO PRN (09:45)
[2025-01-25] MEDS: METOPROLOL TART 50 MG TAB PO ONE (11:12)
[2025-01-25] MEDS: MAG SULF 1GM/100ML (MAG RUN) 1 GM in IV 1 EA IV SCH (11:13)
[2025-01-25] MEDS: MAGNESIUM GLUCONATE 500 MG TAB PO SCH (13:59)
[2025-01-25] MEDS: NICOTINE POLACRILEX 2 MG GUM PO PRN (23:42)
[2025-01-26] VITALS (20 sets, daily range): BP systolic 107–131; BP diastolic 56–79; TEMP 97.1–98.6; O2SAT 92–97
[2025-01-26 05:58] LABS: BASO # 0.0 10^3/uL (0.0-0.2); BASO % 0.0 % (0.0-1.0); EOS # 0.0 10^3/uL (0.0-0.5); EOS % 0.0 % (0.0-3.0); LYMPH # 0.5 10^3/uL (1.5-5.0); LYMPH % 14.4 % (24.0-44.0); MONO # 0.3 10^3/uL (0.0-0.8); MONO % 8.6 % (2.0-8.0); NEUTROPHILS # 2.9 10^3/uL (1.5-8.5); NEUTROPHILS % 76.5 % (36.0-66.0); PLATELET COUNT, AUTOMATED 211 10^3/uL (150-450)
[2025-01-26 06:25] LABS: CALCIUM LEVEL 7.7 MG/DL (8.3-10.6); CARBON DIOXIDE LEVEL 30 MMOL/L (20-31); CHLORIDE LEVEL 94 MMOL/L (98-107); CREATININE FOR GFR 0.59 MG/DL (0.70-1.30); GLOMERULAR FILTRATION RATE > 90.0 (>42); MAGNESIUM LEVEL 1.7 MG/DL (1.8-2.4); POTASSIUM SERUM 3.5 MMOL/L (3.5-5.1); SODIUM LEVEL 131 MMOL/L (136-145)
[2025-01-26] MEDS ORDERED: MAGNESIUM OXIDE 400 MG TAB PO ONE (08:00)
[2025-01-26] MEDS: MAG SULF 1GM/100ML (MAG RUN) 1 GM in IV 1 EA IV ONE (08:06)
[2025-01-26] MEDS: METOPROLOL TART 50 MG TAB PO SCH (08:07)
[2025-01-26] MEDS: MAGNESIUM GLUCONATE 500 MG TAB PO SCH (09:18)
[2025-01-26] MEDS: MAG SULF 1GM/100ML (MAG RUN) X1 IV ONE (09:18)
[2025-01-26] MEDS: METOPROLOL SUCC. 50 MG *XL* TAB PO ONE (12:51)
[2025-01-27] VITALS (20 sets, daily range): BP systolic 117–144; BP diastolic 69–83; TEMP 97.4–98.1; O2SAT 93–97
[2025-01-27 05:31] LABS: BASO # 0.0 10^3/uL (0.0-0.2); BASO % 0.0 % (0.0-1.0); EOS # 0.0 10^3/uL (0.0-0.5); EOS % 0.2 % (0.0-3.0); LYMPH # 0.8 10^3/uL (1.5-5.0); LYMPH % 16.9 % (24.0-44.0); MONO # 0.4 10^3/uL (0.0-0.8); MONO % 8.9 % (2.0-8.0); NEUTROPHILS # 3.4 10^3/uL (1.5-8.5); NEUTROPHILS % 73.3 % (36.0-66.0); PLATELET COUNT, AUTOMATED 214 10^3/uL (150-450)
[2025-01-27 05:55] LABS: ALT/SGPT 20 U/L (7.0-40); AST/SGOT 27 U/L (<34); CALCIUM LEVEL 7.5 MG/DL (8.3-10.6); CARBON DIOXIDE LEVEL 32 MMOL/L (20-31); CHLORIDE LEVEL 91 MMOL/L (98-107); CREATININE FOR GFR 0.60 MG/DL (0.70-1.30); GLOMERULAR FILTRATION RATE > 90.0 (>42); POTASSIUM SERUM 4.0 MMOL/L (3.5-5.1); SODIUM LEVEL 128 MMOL/L (136-145)
[2025-01-27 07:43] LABS: OSMOLALITY SERUM 266 MOSM/KG (280-301)
[2025-01-27] MEDS: METOPROLOL SUCC. 50 MG *XL* TAB PO SCH (08:40)
[2025-01-27] MEDS ORDERED: PILL CUTTER 1 EACH XX PRN (09:00)
[2025-01-27 10:11] LABS: APPEARANCE, URINE CLEAR (CLEAR); BACTERIA, URINE AUTO NEGATIVE (NEGATIVE); BILIRUBIN, URINE AUTO NEGATIVE (NEGATIVE); BLOOD, URINE BLOOD NEGATIVE (NEGATIVE); GLUCOSE, URINE (UA) AUTO NEGATIVE (NEGATIVE); KETONE, URINE AUTO NEGATIVE (NEGATIVE); LEUKOCYTE ESTERASE, URINE AUTO NEGATIVE (NEGATIVE); NITRITE, URINE AUTO NEGATIVE (NEGATIVE); PROTEIN, URINE AUTO NEGATIVE (NEGATIVE); RBC, URINE AUTO 0 /HPF (0-3); SPECIFIC GRAVITY URINE AUTO 1.008 (1.002-1.035); SQUAMOUS EPITHELIAL CELL UR AU 0 /HPF (0-6); UROBILINOGEN, URINE AUTO 0.2 mg/dL (0.0-2.0); WBC, URINE AUTO 0 /HPF (0-3)
[2025-01-27 10:29] LABS: CHLORIDE,RANDOM URINE 116 MMOL/L; POTASSIUM RANDOM URINE 17.0 MMOL/L; SODIUM,RANDOM URINE 119 MMOL/L
[2025-01-27] MEDS: NS (Normal Saline) 0.9% 1,000 ML IV SCH (11:52)
[2025-01-27 18:43] LABS: CALCIUM LEVEL 7.5 MG/DL (8.3-10.6); CARBON DIOXIDE LEVEL 30 MMOL/L (20-31); CHLORIDE LEVEL 87 MMOL/L (98-107); CREATININE FOR GFR 0.56 MG/DL (0.70-1.30); GLOMERULAR FILTRATION RATE > 90.0 (>42); POTASSIUM SERUM 4.4 MMOL/L (3.5-5.1); SODIUM LEVEL 122 MMOL/L (136-145)
[2025-01-27] MEDS: SODIUM CHLORIDE 1 GM TAB PO SCH (20:04)
[2025-01-27] MEDS: FUROSEMIDE 20 MG/2 ML VIAL IV ONE (20:05)
[2025-01-28] VITALS (17 sets, daily range): BP systolic 106–131; BP diastolic 62–75; TEMP 97–98.2; O2SAT 93–98
[2025-01-28 00:49] LABS: CALCIUM LEVEL 7.1 MG/DL (8.3-10.6); CARBON DIOXIDE LEVEL 33 MMOL/L (20-31); CHLORIDE LEVEL 89 MMOL/L (98-107); CREATININE FOR GFR 0.71 MG/DL (0.70-1.30); GLOMERULAR FILTRATION RATE > 90.0 (>42); POTASSIUM SERUM 4.0 MMOL/L (3.5-5.1); SODIUM LEVEL 125 MMOL/L (136-145)
[2025-01-28 05:46] LABS: BASO # 0.0 10^3/uL (0.0-0.2); BASO % 0.0 % (0.0-1.0); EOS # 0.0 10^3/uL (0.0-0.5); EOS % 0.4 % (0.0-3.0); LYMPH # 0.8 10^3/uL (1.5-5.0); LYMPH % 16.7 % (24.0-44.0); MONO # 0.5 10^3/uL (0.0-0.8); MONO % 9.9 % (2.0-8.0); NEUTROPHILS # 3.5 10^3/uL (1.5-8.5); NEUTROPHILS % 72.6 % (36.0-66.0); PLATELET COUNT, AUTOMATED 204 10^3/uL (150-450)
[2025-01-28 06:16] LABS: CALCIUM LEVEL 7.3 MG/DL (8.3-10.6); CARBON DIOXIDE LEVEL 35 MMOL/L (20-31); CHLORIDE LEVEL 89 MMOL/L (98-107); CREATININE FOR GFR 0.70 MG/DL (0.70-1.30); GLOMERULAR FILTRATION RATE > 90.0 (>42); MAGNESIUM LEVEL 1.5 MG/DL (1.8-2.4); POTASSIUM SERUM 3.7 MMOL/L (3.5-5.1); SODIUM LEVEL 127 MMOL/L (136-145)
[2025-01-28] MEDS: predniSONE 10 MG TAB PO SCH (08:53)
[2025-01-28] MEDS: MAG SULF 1GM/100ML (MAG RUN) 1 GM in IV 1 EA IV SCH (08:54)
[2025-01-28 14:24] LABS: CALCIUM LEVEL 7.4 MG/DL (8.3-10.6); CARBON DIOXIDE LEVEL 32 MMOL/L (20-31); CHLORIDE LEVEL 85 MMOL/L (98-107); CREATININE FOR GFR 0.65 MG/DL (0.70-1.30); GLOMERULAR FILTRATION RATE > 90.0 (>42); POTASSIUM SERUM 3.7 MMOL/L (3.5-5.1); SODIUM LEVEL 123 MMOL/L (136-145)
[2025-01-28] MEDS ORDERED: IPRATROPIUM 0.5 MG/ALBUTEROL 2.5 MG INH SOL UD 3 ML NEB PRN (14:30)
[2025-01-28] MEDS: TOLVAPTAN 15 MG TAB PO ONE (18:24)
[2025-01-28 20:36] LABS: CALCIUM LEVEL 6.8 MG/DL (8.3-10.6); CARBON DIOXIDE LEVEL 30 MMOL/L (20-31); CHLORIDE LEVEL 90 MMOL/L (98-107); CREATININE FOR GFR 0.64 MG/DL (0.70-1.30); GLOMERULAR FILTRATION RATE > 90.0 (>42); POTASSIUM SERUM 4.3 MMOL/L (3.5-5.1); SODIUM LEVEL 125 MMOL/L (136-145)
[2025-01-29] MEDS ORDERED: SODIUM CHLORIDE 1 GM TAB PO SCH
[2025-01-29] MEDS ORDERED: APIXABAN 5 MG TAB PO SCH
[2025-01-29 00:51] LABS: CALCIUM LEVEL 7.1 MG/DL (8.3-10.6); CARBON DIOXIDE LEVEL 32 MMOL/L (20-31); CHLORIDE LEVEL 91 MMOL/L (98-107); CREATININE FOR GFR 0.63 MG/DL (0.70-1.30); GLOMERULAR FILTRATION RATE > 90.0 (>42); POTASSIUM SERUM 4.2 MMOL/L (3.5-5.1); SODIUM LEVEL 128 MMOL/L (136-145)
[2025-01-29 04:03] VITALS: BP 109/62; TEMP 98; O2SAT 95
[2025-01-29 05:01] LABS: CALCIUM LEVEL 7.2 MG/DL (8.3-10.6); CARBON DIOXIDE LEVEL 36 MMOL/L (20-31); CHLORIDE LEVEL 92 MMOL/L (98-107); CREATININE FOR GFR 0.72 MG/DL (0.70-1.30); GLOMERULAR FILTRATION RATE > 90.0 (>42); POTASSIUM SERUM 3.9 MMOL/L (3.5-5.1); SODIUM LEVEL 132 MMOL/L (136-145)
[2025-01-29] MEDS: DESMOPRESSIN 4 MCG/ML INJ VIAL/AMP SQ ONE (05:51)
[2025-01-29 07:24] VITALS: BP 117/61; TEMP 98.3; O2SAT 95
[2025-01-29 09:11] VITALS: BP 117/61
[2025-01-29] MEDS: PANTOPRAZOLE 40MG TAB PO SCH (09:11)
[2025-01-29 09:43] LABS: CALCIUM LEVEL 7.8 MG/DL (8.3-10.6); CARBON DIOXIDE LEVEL 35 MMOL/L (20-31); CHLORIDE LEVEL 90 MMOL/L (98-107); CREATININE FOR GFR 0.69 MG/DL (0.70-1.30); GLOMERULAR FILTRATION RATE > 90.0 (>42); MAGNESIUM LEVEL 1.8 MG/DL (1.8-2.4); POTASSIUM SERUM 3.5 MMOL/L (3.5-5.1); SODIUM LEVEL 130 MMOL/L (136-145)
[2025-01-29] MEDS ORDERED: URE-15PO PO (09:49)
[2025-01-29] MEDS ORDERED: NICO2GUM PO (10:15)
[2025-01-29] MEDS ORDERED: METO1TAB7 PO (10:15)
[2025-01-29] MEDS ORDERED: ELIQ5TAB PO (10:15)
[2025-01-29] MEDS ORDERED: PRED10TA2 PO (10:15)
[2025-01-29] MEDS ORDERED: DIGO0.253 PO (11:16)
[2025-01-29] MEDS ORDERED: SODI1TAB12 PO (12:09)
== END 2025-01-29 12:49 | disposition home health service (06) | DRG 190 ==
LOC: M ED 15:27 → EDBD 15:27 → M ED INP 18:47 → M PCU 01-23 17:22
PROVIDERS: ADMIT Internal Medicine; ATTEND Internal Medicine
PROC: B246ZZZ Ultrasonography of Right and Left Heart (ICD-10-PCS; principal; 2025-01-25)
DX: J44.1 Chronic obstructive pulmonary disease with (acute) exacerbation (principal); J85.0 Gangrene and necrosis of lung; R64 Cachexia; E22.2 Syndrome of inappropriate secretion of antidiuretic hormone; E87.3 Alkalosis; I25.10 Atherosclerotic heart disease of native coronary artery without angina pectoris; I10 Essential (primary) hypertension; E78.5 Hyperlipidemia, unspecified; E11.9 Type 2 diabetes mellitus without complications; F32.A Depression, unspecified; F41.9 Anxiety disorder, unspecified; M19.90 Unspecified osteoarthritis, unspecified site; F17.210 Nicotine dependence, cigarettes, uncomplicated; R63.6 Underweight; J43.2 Centrilobular emphysema; I95.9 Hypotension, unspecified; R62.7 Adult failure to thrive; K21.9 Gastro-esophageal reflux disease without esophagitis; I48.91 Unspecified atrial fibrillation; K59.00 Constipation, unspecified; R60.0 Localized edema; E83.42 Hypomagnesemia; Z98.1 Arthrodesis status; Z79.82 Long term (current) use of aspirin; Z79.899 Other long term (current) drug therapy; Z85.01 Personal history of malignant neoplasm of esophagus; Z92.21 Personal history of antineoplastic chemotherapy; Z92.3 Personal history of irradiation

== ENCOUNTER → 2025-01-29 | Outpatient (CLI) | payer MEDICARE, MEDICAID ==
[~2025-01-29] MED LIST changes: +DIGO0.253 PO; +ELIQ5TAB PO; +IPRA0.00 NEB; +LEVO1TAB40 PO; +METO1TAB7 PO; +NICO2GUM PO; +PRED10TA2 PO; +SODI1TAB12 PO; +URE-15PO PO
== END ==
LOC: M EKG 12:53
PROVIDERS: ATTEND Internal Medicine
DX: I48.0 Paroxysmal atrial fibrillation (principal)

== ENCOUNTER 2025-02-01 22:53 | Emergency (ER) | payer MEDICARE, MEDICAID ==
[~2025-02-01] VITALS: Ht 175.3 cm; Wt 47.6 kg
[~2025-02-01 22:53] MED LIST changes: -IPRA0.00 NEB
[2025-02-01 23:19] LABS: BASO # 0.0 10^3/uL (0.0-0.2); BASO % 0.2 % (0.0-1.0); EOS # 0.0 10^3/uL (0.0-0.5); EOS % 0.3 % (0.0-3.0); LYMPH # 0.7 10^3/uL (1.5-5.0); LYMPH % 10.7 % (24.0-44.0); MONO # 0.7 10^3/uL (0.0-0.8); MONO % 10.3 % (2.0-8.0); NEUTROPHILS # 5.0 10^3/uL (1.5-8.5); NEUTROPHILS % 78.3 % (36.0-66.0); PLATELET COUNT, AUTOMATED 255 10^3/uL (150-450)
[2025-02-01 23:45] LABS: CALCIUM LEVEL 8.0 MG/DL (8.3-10.6); CARBON DIOXIDE LEVEL 28 MMOL/L (20-31); CHLORIDE LEVEL 93 MMOL/L (98-107); CK-MB VALUE MASS < 1.0 NG/ML (<3.6); CREATININE FOR GFR 0.65 MG/DL (0.70-1.30); GLOMERULAR FILTRATION RATE > 90.0 (>42); MAGNESIUM LEVEL 1.7 MG/DL (1.8-2.4); POTASSIUM SERUM 4.0 MMOL/L (3.5-5.1); SODIUM LEVEL 132 MMOL/L (136-145)
[2025-02-01 23:51] LABS: CPK CREATINE PHOSPHOKINASE 21 U/L (46-171)
[2025-02-01] MEDS ORDERED: ISOVUE-370 76% 100 ML VIAL As Ordered ONE (23:57)
[2025-02-02] MEDS: MAG SULF 1GM/100ML (MAG RUN) 1 GM in IV 1 EA IV ONE (01:49)
[2025-02-02] MEDS: IPRATROPIUM 0.5 MG/ALBUTEROL 2.5 MG INH SOL UD 3 ML NEB ONE (02:02)
[2025-02-02 02:46] LABS: DIGOXIN LEVEL 0.6 NG/ML (0.8-2.0)
[2025-02-02] MEDS ORDERED: IPRA0.00 NEB (03:26)
[2025-02-02] MEDS ORDERED: PRED10TA2 PO (03:26)
[2025-02-02] MEDS: NICOTINE POLACRILEX 2 MG GUM PO ONE (04:21)
[2025-02-02] MEDS: CALCIUM GLUCONATE 1,000 MG in DEXTROSE 5% (D5W) MINI-BAG PLU 100 ML IV ONE (04:21)
[2025-02-02 06:37] VITALS: BP 123/68; TEMP 98.1; O2SAT 95
== END 2025-02-02 06:45 | disposition home or self-care (01) ==
LOC: EDBD 22:53 → M ED 22:53
DX: J44.1 Chronic obstructive pulmonary disease with (acute) exacerbation (principal); R06.00 Dyspnea, unspecified; E11.9 Type 2 diabetes mellitus without complications; I10 Essential (primary) hypertension; E78.5 Hyperlipidemia, unspecified; K21.9 Gastro-esophageal reflux disease without esophagitis; F41.9 Anxiety disorder, unspecified; F32.A Depression, unspecified; Z79.1 Long term (current) use of non-steroidal anti-inflammatories (NSAID); Z79.51 Long term (current) use of inhaled steroids; Z79.01 Long term (current) use of anticoagulants; Z79.84 Long term (current) use of oral hypoglycemic drugs; Z79.899 Other long term (current) drug therapy; Z79.810 Long term (current) use of selective estrogen receptor modulators (SERMs); Z79.52 Long term (current) use of systemic steroids

== ENCOUNTER 2025-02-03 12:09 | Inpatient (IN) | payer MEDICARE, MEDICAID ==
[~2025-02-03] VITALS: Ht 175.3 cm; Wt 43.5 kg
[~2025-02-03 12:09] MED LIST changes: +IPRA0.00 NEB
[2025-02-03 12:44] LABS: VENOUS BASE EXCESS 4.9 (-2.0-2.0); VENOUS HCO3 29.7 MMOL/L (23.0-27.0); VENOUS O2 SATURATION 83.7 % (60.0-80.0); VENOUS PARTIAL PRESSURE CO2 44.8 mmHg (38.0-50.0); VENOUS PARTIAL PRESSURE O2 46.8 mmHg (30.0-50.0); VENOUS PH 7.440 UNITS (7.330-7.430); VENOUS STANDARD HCO3 28.5 MMOL/L; VENOUS TOTAL CO2 31.1 MMOL/L (24.0-28.0)
[2025-02-03 12:48] LABS: BASO # 0.0 10^3/uL (0.0-0.2); BASO % 0.1 % (0.0-1.0); EOS # 0.0 10^3/uL (0.0-0.5); EOS % 0.2 % (0.0-3.0); LYMPH # 0.5 10^3/uL (1.5-5.0); LYMPH % 5.9 % (24.0-44.0); MONO # 0.5 10^3/uL (0.0-0.8); MONO % 5.3 % (2.0-8.0); NEUTROPHILS # 8.0 10^3/uL (1.5-8.5); NEUTROPHILS % 88.3 % (36.0-66.0); PLATELET COUNT, AUTOMATED 225 10^3/uL (150-450)
[2025-02-03 13:14] LABS: ALT/SGPT 21 U/L (7.0-40); AST/SGOT 20 U/L (<34); CALCIUM LEVEL 8.3 MG/DL (8.3-10.6); CARBON DIOXIDE LEVEL 31 MMOL/L (20-31); CHLORIDE LEVEL 95 MMOL/L (98-107); CREATININE FOR GFR 0.67 MG/DL (0.70-1.30); GLOMERULAR FILTRATION RATE > 90.0 (>42); POTASSIUM SERUM 3.7 MMOL/L (3.5-5.1); SODIUM LEVEL 133 MMOL/L (136-145)
[2025-02-03 13:17] LABS: INR 1.02
[2025-02-03] MEDS: IPRATROPIUM 0.5 MG/ALBUTEROL 2.5 MG INH SOL UD 3 ML NEB ONE (14:22)
[2025-02-03] MEDS: ALBUTEROL SULFATE 2.5 MG/0.5 ML INH CONCENTRATE NEB SOLN INH ONE (14:22)
[2025-02-03] MEDS ORDERED: HOME MED LIST COMPLETE! XX SCH (15:30)
[2025-02-03] MEDS ORDERED: GLUCAGON INJ 1 MG VIAL SC PRN (16:40)
[2025-02-03] MEDS ORDERED: GLUCOSE 4 GM CHEW PO PRN (16:40)
[2025-02-03] MEDS ORDERED: DEXTROSE 50% 50 ML SYRINGE IV PRN (16:40)
[2025-02-03] MEDS: NS (Normal Saline) 0.9% 1,000 ML IV ONE (16:50)
[2025-02-03] MEDS: INSULIN LISPRO (NovoLOG) PER UNIT SC SCH ×2 (18:16→21:00)
[2025-02-03] MEDS: METOPROLOL TART 25 MG TABLET PO SCH (18:17)
[2025-02-03] MEDS: LEVALBUTEROL 1.25 MG 0.5ML CONCENTRATE NEB NEB SCH (20:42)
[2025-02-03] MEDS: BUDESONIDE 0.5 MG/2 ML INHALATION SUSPENSION NEB SCH (20:42)
[2025-02-03 21:05] VITALS: BP 131/67; TEMP 97.2; O2SAT 93
[2025-02-03] MEDS: APIXABAN 5 MG TAB PO SCH (22:26)
[2025-02-03] MEDS: MIRTAZAPINE 15 MG TAB PO SCH (22:26)
[2025-02-03] MEDS: NICOTINE POLACRILEX 2 MG GUM PO PRN (22:26)
[2025-02-03 23:50] VITALS: BP 121/56; TEMP 97.9; O2SAT 91
[2025-02-04 04:00] VITALS: BP 113/66; TEMP 97.9; O2SAT 97
[2025-02-04 05:58] LABS: PLATELET COUNT, AUTOMATED 211 10^3/uL (150-450)
[2025-02-04 06:24] LABS: CALCIUM LEVEL 8.5 MG/DL (8.3-10.6); CARBON DIOXIDE LEVEL 32 MMOL/L (20-31); CHLORIDE LEVEL 94 MMOL/L (98-107); CREATININE FOR GFR 0.66 MG/DL (0.70-1.30); GLOMERULAR FILTRATION RATE > 90.0 (>42); POTASSIUM SERUM 4.6 MMOL/L (3.5-5.1); SODIUM LEVEL 133 MMOL/L (136-145)
[2025-02-04] MEDS: TIOTROPIUM BROM 2.5MCG/ACTUATION 4GM INH INH SCH (07:36)
[2025-02-04 08:00] VITALS: BP 104/56; TEMP 97.8; O2SAT 95
[2025-02-04] MEDS: ATORVASTATIN 20 MG TAB PO SCH (08:52)
[2025-02-04] MEDS: ASCORBIC ACID 500 MG TAB PO SCH (08:52)
[2025-02-04] MEDS: FERROUS SULFATE 325 MG TAB PO SCH (08:52)
[2025-02-04] MEDS: ASPIRIN 81 MG ENTERIC TABLET PO SCH (08:52)
[2025-02-04] MEDS: DIGOXIN 0.25 MG TAB PO SCH (08:52)
[2025-02-04] MEDS: PANTOPRAZOLE 40MG TAB PO SCH (08:52)
[2025-02-04 12:02] VITALS: BP 105/58; TEMP 97.7; O2SAT 97
[2025-02-04 16:13] VITALS: BP 110/60; TEMP 97.9; O2SAT 97
[2025-02-04] MEDS: LEVALBUTEROL 1.25 MG 0.5ML CONCENTRATE NEB NEB PRN (17:42)
[2025-02-04 20:24] VITALS: BP 108/57; TEMP 98.2; O2SAT 93
[2025-02-04] MEDS: METOPROLOL TART 25 MG TABLET PO SCH (20:43)
[2025-02-05 00:31] VITALS: BP 123/69; TEMP 97.6; O2SAT 99
[2025-02-05 04:28] VITALS: BP 124/67; TEMP 97.8; O2SAT 95
[2025-02-05 06:12] LABS: CALCIUM LEVEL 8.7 MG/DL (8.3-10.6); CARBON DIOXIDE LEVEL 35 MMOL/L (20-31); CHLORIDE LEVEL 94 MMOL/L (98-107); CREATININE FOR GFR 0.67 MG/DL (0.70-1.30); GLOMERULAR FILTRATION RATE > 90.0 (>42); POTASSIUM SERUM 4.3 MMOL/L (3.5-5.1); SODIUM LEVEL 136 MMOL/L (136-145)
[2025-02-05 08:32] VITALS: BP 133/61; TEMP 97.8; O2SAT 95
[2025-02-05 12:28] VITALS: BP 112/58; TEMP 97.6; O2SAT 93
[2025-02-05] MEDS: METOPROLOL TART 25 MG TABLET PO ONE (13:19)
[2025-02-05 16:53] VITALS: BP 116/63; TEMP 97.8; O2SAT 93
[2025-02-05 19:52] VITALS: BP 121/61; TEMP 98.2; O2SAT 96
[2025-02-05] MEDS: METOPROLOL TART 25 MG TABLET PO SCH (21:19)
[2025-02-06] VITALS (7 sets, daily range): BP systolic 107–153; BP diastolic 56–87; TEMP 97–97.9; O2SAT 93–99
[2025-02-06] MEDS ORDERED: PRED10TA2 PO (12:35)
[2025-02-06] MEDS ORDERED: ELIQ5TAB PO (12:35)
[2025-02-06] MEDS ORDERED: DIGO0.253 PO (12:35)
[2025-02-06] MEDS ORDERED: PANT40TA29 PO (12:35)
[2025-02-06] MEDS ORDERED: ATOR1TAB21 PO (12:35)
[2025-02-06] MEDS ORDERED: MIRT-11 PO (12:35)
[2025-02-06] MEDS ORDERED: METO50TA7 PO (12:35)
[2025-02-06] MEDS ORDERED: FLUT1BLS8 INH (12:35)
[2025-02-06] MEDS ORDERED: METF500T13 PO (12:35)
[2025-02-06] MEDS ORDERED: FERR325T3 PO (12:35)
[2025-02-06] MEDS ORDERED: ECOT81TA5 PO (12:35)
[2025-02-06] MEDS ORDERED: IPRA0.00 NEB (12:35)
== END 2025-02-06 15:59 | disposition home or self-care (01) | DRG 189 ==
LOC: M ED 12:09 → EDBD 12:09 → M ED INP 16:24 → M PCU 20:57
PROVIDERS: ADMIT Internal Medicine; ATTEND Internal Medicine
DX: J96.01 Acute respiratory failure with hypoxia (principal); E43 Unspecified severe protein-calorie malnutrition; E87.1 Hypo-osmolality and hyponatremia; J06.9 Acute upper respiratory infection, unspecified; B97.4 Respiratory syncytial virus as the cause of diseases classified elsewhere; J44.9 Chronic obstructive pulmonary disease, unspecified; J43.9 Emphysema, unspecified; E11.9 Type 2 diabetes mellitus without complications; D50.9 Iron deficiency anemia, unspecified; F17.200 Nicotine dependence, unspecified, uncomplicated; F32.A Depression, unspecified; I48.91 Unspecified atrial fibrillation; I25.10 Atherosclerotic heart disease of native coronary artery without angina pectoris; Z85.01 Personal history of malignant neoplasm of esophagus; Z79.01 Long term (current) use of anticoagulants; Z79.84 Long term (current) use of oral hypoglycemic drugs; Z79.899 Other long term (current) drug therapy; Z79.51 Long term (current) use of inhaled steroids

== ENCOUNTER 2025-02-09 16:08 | Inpatient (IN) | payer MEDICARE, MEDICAID ==
[~2025-02-09] VITALS: Ht 175.3 cm; Wt 41.0 kg
[2025-02-09] MEDS: NS 500 ML IV ONE (17:02)
[2025-02-09 17:06] LABS: PLATELET COUNT, AUTOMATED 161 10^3/uL (150-450)
[2025-02-09 17:40] LABS: ETHYL ALCOHOL (ETHANOL) < 0.003 % (0.000-0.010)
[2025-02-09 17:42] LABS: DIGOXIN LEVEL 0.9 NG/ML (0.8-2.0); SALICYLATE LEVEL < 3.0 MG/DL (<30)
[2025-02-09 17:56] LABS: ALT/SGPT 51 U/L (7.0-40); AST/SGOT 35 U/L (<34); CALCIUM LEVEL 8.7 MG/DL (8.3-10.6); CARBON DIOXIDE LEVEL 32 MMOL/L (20-31); CHLORIDE LEVEL 95 MMOL/L (98-107); CREATININE FOR GFR 0.73 MG/DL (0.70-1.30); GLOMERULAR FILTRATION RATE > 90.0 (>42); POTASSIUM SERUM 4.1 MMOL/L (3.5-5.1); SODIUM LEVEL 136 MMOL/L (136-145)
[2025-02-09] MEDS ORDERED: IPRA0.00 INH (18:20)
[2025-02-09] MEDS ORDERED: ELIQ5TAB PO (18:20)
[2025-02-09] MEDS ORDERED: FERR1TAB8 PO (18:20)
[2025-02-09] MEDS ORDERED: DIGO0.253 PO (18:20)
[2025-02-09] MEDS ORDERED: HOME MED LIST COMPLETE! XX SCH (18:25)
[2025-02-09 19:46] LABS: AMPHETAMINES LEVEL URINE NEGATIVE (NEGATIVE); BARBITURATES URINE NEGATIVE (NEGATIVE); BENZODIAZEPINES URINE NEGATIVE (NEGATIVE); CANNABINOIDS URINE NEGATIVE (NEGATIVE); COCAINE METABOLITE URINE NEGATIVE (NEGATIVE); METHADONE URINE NEGATIVE (NEGATIVE); OPIATES URINE NEGATIVE (NEGATIVE); PHENCYCLIDINE URINE NEGATIVE (NEGATIVE)
[2025-02-09] MEDS ORDERED: MAALOX 30 ML SUSP *UDC PO PRN (20:35)
[2025-02-09] MEDS ORDERED: traZODone 50 MG TAB PO PRN (20:35)
[2025-02-09] MEDS ORDERED: IPRATROPIUM 0.5 MG/ALBUTEROL 2.5 MG INH SOL UD 3 ML INH PRN (20:35)
[2025-02-09] MEDS ORDERED: MOM 30 ML SUSPENSION UDC PO PRN (20:35)
[2025-02-09] MEDS ORDERED: OLANZapine 5 MG TAB PO PRN (20:35)
[2025-02-09] MEDS ORDERED: ACETAMINOPHEN 325 MG TAB PO PRN (20:35)
[2025-02-09] MEDS: METOPROLOL TART 50 MG TAB PO SCH (21:00)
[2025-02-09] MEDS: APIXABAN 5 MG TAB PO SCH (21:24)
[2025-02-09] MEDS: metFORMIN 500 MG TAB PO SCH (21:25)
[2025-02-09] MEDS: MIRTAZAPINE 15 MG TAB PO SCH (21:25)
[2025-02-09 23:00] VITALS: BP 104/69; TEMP 98.1; O2SAT 96
[2025-02-10] VITALS (9 sets, daily range): BP systolic 115–149; BP diastolic 60–84; TEMP 97.1–98.6; O2SAT 84–96
[2025-02-10] MEDS: SERTRALINE HCL 25 MG TABLET PO SCH (09:00)
[2025-02-10] MEDS: ATORVASTATIN 20 MG TAB PO SCH (09:00)
[2025-02-10] MEDS: DIGOXIN 0.25 MG TAB PO SCH (09:00)
[2025-02-10] MEDS: MULTIVITAMINS/MINERALS THERAP 1 TAB PO SCH (09:00)
[2025-02-10] MEDS: NICOTINE 21 MG/24 HR 1 EA TRANSDERMAL TD SCH (10:24)
[2025-02-10] MEDS ORDERED: LEVALBUTEROL 1.25 MG 0.5ML CONCENTRATE NEB INH PRN (10:25)
[2025-02-10] MEDS ORDERED: IPRATROPIUM 0.5 MG/2.5 ML (0.02%) SOLN NEB INH PRN (10:25)
[2025-02-10] MEDS: FERROUS SULFATE 325 MG TAB PO SCH (10:29)
[2025-02-10] MEDS: ASCORBIC ACID 500 MG TAB PO SCH (10:29)
[2025-02-10] MEDS: PANTOPRAZOLE 40MG TAB PO SCH (10:29)
[2025-02-10 12:27] LABS: CK-MB VALUE MASS 2.6 NG/ML (<3.6)
[2025-02-10 12:31] LABS: ALT/SGPT 40 U/L (7.0-40); AST/SGOT 25 U/L (<34); CALCIUM LEVEL 8.4 MG/DL (8.3-10.6); CARBON DIOXIDE LEVEL 28 MMOL/L (20-31); CHLORIDE LEVEL 95 MMOL/L (98-107); CPK CREATINE PHOSPHOKINASE 21.0 U/L (46-171); CREATININE FOR GFR 0.73 MG/DL (0.70-1.30); GLOMERULAR FILTRATION RATE > 90.0 (>42); MB/CK RELATIVE INDEX 12.38 (< OR =4); POTASSIUM SERUM 4.0 MMOL/L (3.5-5.1); SODIUM LEVEL 135 MMOL/L (136-145)
[2025-02-10] MEDS: LEVALBUTEROL 1.25 MG 0.5ML CONCENTRATE NEB INH SCH (12:50)
[2025-02-10] MEDS: IPRATROPIUM 0.5 MG/2.5 ML (0.02%) SOLN NEB INH SCH (12:50)
[2025-02-10 13:25] LABS: ABG BASE EXCESS 0.8 (-2.0-2.0); ABG HCO3 24.9 MMOL/L (22.0-26.0); ABG O2 SATURATION 97.6 % (95.0-99.0); ABG PARTIAL PRESSURE CO2 38.3 mmHg (35.0-45.0); ABG PARTIAL PRESSURE O2 100.5 mmHg (75.0-100.0); ABG STANDARD HCO3 25.2 MMOL/L. (22.0-26.0); ABG TOTAL CO2 26.1 MMOL/L (23.0-31.0); ABG pH (ARTERIAL) 7.431 UNITS (7.350-7.450)
[2025-02-10 14:14] LABS: DIGOXIN LEVEL 1.0 NG/ML (0.8-2.0)
[2025-02-10] MEDS: MEGESTROL 40 MG TAB PO SCH (15:14)
[2025-02-10] MEDS: guaiFENesin ER TABLET 600 MG TAB PO SCH (15:14)
[2025-02-10] MEDS: ASPIRIN 81 MG ENTERIC TABLET PO SCH (17:20)
[2025-02-10] MEDS: DIGOXIN 0.25 MG TAB PO STA (17:21)
[2025-02-10] MEDS: predniSONE 10 MG TAB PO SCH (17:21)
[2025-02-10] MEDS: MIDODRINE 5 MG TAB PO ONE (17:39)
== END 2025-02-10 19:07 | disposition short-term general hospital (02) | DRG 885 ==
LOC: M ED 16:08 → EDBD 16:08 → M ED INP 20:31 → M PSY 22:30
PROVIDERS: ADMIT Psychiatry & Neurology Neurology; ATTEND Psychiatry & Neurology Neurology
DX: F33.2 Major depressive disorder, recurrent severe without psychotic features (principal); E43 Unspecified severe protein-calorie malnutrition; R45.851 Suicidal ideations; E87.1 Hypo-osmolality and hyponatremia; R64 Cachexia; I48.21 Permanent atrial fibrillation; F41.9 Anxiety disorder, unspecified; J44.9 Chronic obstructive pulmonary disease, unspecified; J43.9 Emphysema, unspecified; R00.0 Tachycardia, unspecified; E11.9 Type 2 diabetes mellitus without complications; R53.1 Weakness; D50.9 Iron deficiency anemia, unspecified; Z85.01 Personal history of malignant neoplasm of esophagus; F17.200 Nicotine dependence, unspecified, uncomplicated; Z79.01 Long term (current) use of anticoagulants; Z79.82 Long term (current) use of aspirin; Z79.84 Long term (current) use of oral hypoglycemic drugs; Z79.899 Other long term (current) drug therapy